=== PATIENT | male | born 1990 | race Caucasian/White ===

== ENCOUNTER 2020-05-20 23:31 | Emergency (ER) | payer SELFPAY ==
--- NOTE | ~2020-05-20 | CT_ITS ---
EXAMINATION: CT abdomen pelvis w con DATE: 05/21/2020 02:09 INDICATION: Elbow pain. Leukocytosis. TECHNIQUE: Computed tomography (CT) of the abdomen and pelvis was performed with 100 mL Omnipaque-350 intravenous contrast. Automated exposure control and iterative reconstruction technique were employe d. The dose-length product was 372.43 mGy-cm. COMPARISON: 06/24/2018 FINDINGS: Lung bases are clear. Heart size is normal. No pericardial or pleural effusion. Status post splenecto my with suture line in the subdiaphragmatic left upper quadrant. Mild intrahepatic biliary ductal dil ation versus periportal edema. Gallbladder, pancreas and bilateral adrenal glands are normal. Bilater al nonobstructing nephrolithiasis with at least 2 stones in the right kidney and 3 in the left kidney measuring up to 2-3 mm in maximal diameters. 6 mm right renal cyst. Appendix is not visualized and t here are postoperative changes along the tip of the cecum consistent with prior appendectomy. Bowels are otherwise normal. Bladder is normal. No free intraperitoneal gas or fluid. Several mildly promine nt but still normal-sized retroperitoneal lymph nodes which are likely reactive. No pathologically en larged abdominal or pelvic lymphadenopathy. IMPRESSION: 1. Bilateral nonobstructing nephrolithiasis. 2. Mild intrahepatic biliary ductal dilation versus nonspecific periportal edema. Common bile duct an d gallbladder are normal. Correlate with liver function tests. Reviewed, dictated and finalized at location A. IMPRESSION: 1. Bilateral nonobstructing nephrolithiasis. 2. Mild intrahepatic biliary ductal dilation versus nonspecific periportal william a. Common bile duct and gallbladder are normal. Correlate with liver function t ests.
[2020-05-20 23:38] VITALS: BP 120/73; PULSE 71; RESP 16; TEMP 36.2; O2SAT 100
[2020-05-20 23:54] LABS: Basophils Absolute Auto 0.1 K/mm3 (0.0-0.1); Basophils Percent Auto 0.7 % (0.2-1.2); Eosinophils Absolute Auto 0.3 K/mm3 (0-0.3); Eosinophils Percent Auto 1.8 % (0-4.4); Hematocrit 41.6 % (42.0-52.0); Hemoglobin 14.4 g/dL (14.0-18.0); Immature Granulocyte Absolute 0.05 K/mm3 (0.00-0.031); Immature Granulocyte Percent A 0.3 % (0-0.5); Lymphocytes Absolute Auto 4.18 K/mm3 (0.9-3.2); Lymphocytes Percent Auto 26.6 % (18.3-44.2); Mean Corpuscular HGB Conc 34.6 g/dl (32-36); Mean Corpuscular Hemoglobin 31.6 pg (26-34); Mean Corpuscular Volume 91.2 fl (80-100); Mean Platelet Volume 9.5 fl (7.4-10.4); Monocytes Absolute Auto 1.4 K/mm3 (0.1-0.6); Neutrophils Absolute Auto 9.7 K/mm3 (1.3-6.7); Neutrophils Percent Auto 61.6 % (45.5-73.1); Platelet Count Result 217 k/mm3 (150-375); Red Blood Count 4.56 M/mm3 (4.6-6.20); Red Cell Distribution Width 13.2 % (11.5-14.5); White Blood Count 15.7 K/mm3 (4.5-10.0)
[2020-05-21] MEDS: LACTATED RINGERS 1,000 ML 999 ML IV CONT ×2 (00:06→01:24)
[2020-05-21] MEDS: PANTOPRAZOLE SODIUM IV 40 MG VIAL IV PUSH (00:06)
[2020-05-21] MEDS: ONDANSETRON INJ 4 MG/2 ML VIAL IV PUSH ×2 (00:07→01:24)
--- NOTE | 2020-05-21 00:24 | ED.ABDPAIN ---
HPI - Abdominal Pain General Chief Complaint: Abdominal Pain Stated Complaint: stomach issues Time Seen by Provider: 05/20/20 23:38 Source: patient Mode of arrival: ambulatory Limitations: no limitations History of Present Illness HPI narrative: This is a 29 year old male who presents for evaluation of nausea, vomiting, diarrhea and abdominal pain. He states he ate around 6 pm, and shortly after he developed nausea, vomiting and diarrhea. He ate a chicken potpie and denies other sick contacts. He has associated intermittent epigastric squeezing pain. He denies fever, chills, cough, sore throat, runny nose. MD elicited complaint: abdominal pain Quality: other (squeezing) Radiation: epigastric Associated symptoms: nausea, vomiting and diarrhea Related Data Allergies Allergy/AdvReac Type Severity Reaction Status Date / Time amoxicillin Allergy Mild Unknown Verified 05/20/20 23:50 Penicillins Allergy Mild Unknown Verified 05/20/20 23:50 red dye Allergy Mild Unknown Verified 05/20/20 23:50 Review of Systems Review of Systems: All systems reviewed & are unremarkable except as noted in HPI and below ENT: Denies sore throat Cardiovascular: Cardiovascular: Denies chest pain Respiratory: Respiratory: Denies cough and Denies dyspnea Gastrointestinal: Gastrointestinal: Reports abdominal pain, Reports diarrhea, Reports nausea and Reports vomiting Neurologic: Denies headache(s) PMFSH Past Medical History Medical History (Updated 05/21/20 @ 03:27 by Antonia Cutler MD) History of ITP Surgical History Surgical History (Updated 05/21/20 @ 00:25 by Antonia Cutler MD) H/O splenectomy History of appendectomy Social History Social History (Updated 05/21/20 @ 00:26 by Antonia Cutler MD) Smoking status: Current every day smoker Alcohol intake: current Substance use type: crack/cocaine Other substance usage details: cocaine over the weekend Exam Const: General: no acute distress and alert Orientation/consciousness: patient oriented x3 Eyes: EOM: EOMs intact bilaterally Resp: Effort & Inspection: normal respiratory effort and no retractions Auscultation: clear to auscultation bilaterally Cardio: Rate: regular rate Rhythm: regular rhythm Heart sounds: no murmurs GI: GI Palp: Yes Soft to palpation, Yes Tenderness to palpation present (GI) (Diffuse, mild) and No Guarding due to palpation present (GI) Auscultation: normal bowel sounds Skin: General skin exam: normal color Rashes: no rashes Neuro: General: patient oriented x3, moves all extremities and CN's II-XI intact bilaterally Psych: Mental Status: mental status grossly normal Affect: normal affect Course Reevaluation(s) Reevaluation #1: Patient states that his pain has resolved. He continues to have nausea. Date: 05/21/20 Time: 01:15 Reevaluation #2: Patient states he feels much better. He is able to drink water and eat crackers without nausea or vomiting. I Discussed CT and dishcarge plan. He was also told return precautions. Date: 05/21/20 Time: 03:21 Vital Signs Vital signs: Vital Signs Temperature 97.2 F L 05/20/20 23:38 Pulse Rate 71 05/20/20 23:38 Respiratory Rate 16 05/20/20 23:38 Blood Pressure 120/73 05/20/20 23:38 Pulse Oximetry 100 05/20/20 23:38 Temperature 97.2 F L 05/20/20 23:38 Pulse Rate 92 05/21/20 03:15 Respiratory Rate 18 05/21/20 03:15 Blood Pressure 112/72 05/21/20 03:15 Pulse Oximetry 96 05/21/20 03:15 MDM - Abdominal Pain Lab Data Attestation: I reviewed the patient's lab results. Result diagrams: 05/20/20 23:49 05/20/20 23:49 Labs: Lab Results 05/20/20 05/20/20 05/21/20 Range/Units 23:49 23:49 00:53 WBC 15.7 H (4.5-10.0) K/mm3 RBC 4.56 L (4.6-6.20) M/mm3 Hgb 14.4 (14.0-18.0) g/dL Hct 41.6 L (42.0-52.0) % MCV 91.2 (80-100) fl MCH 31.6 (26-34) pg MCHC 34.6 (32-36) g/dl RDW 13.2
[2020-05-21 00:27] LABS: Alanine Aminotransferase 14 U/L (4-50); Albumin Level 5.1 g/dL (3.5-5.1); Alkaline Phosphatase 56 U/L (38-126); Anion Gap 10 mmol/L (8-16); Aspartate Amino Transferase 21 U/L (17-59); Bilirubin,Total 0.5 mg/dL (0.2-1.3); Blood Urea Nitrogen 16 mg/dL (9-20); Carbon Dioxide 25 mmol/L (22-30); Chloride 105 mmol/L (98-107); Estimated CRCL calculation 99 ml/min; Estimated Glomerular Filt Rate > 60; Glucose 95 mg/dL (75-110); Lipase 70 U/L (23-300); Potassium 3.8 mmol/L (3.4-5.0); Sodium 140 mmol/L (137-145)
[2020-05-21 01:02] LABS: Add Urine Microscopic? NO; Appearance Urine Clear (Clear); Bilirubin Urine Negative (Negative); Blood Urine Negative (Negative); Color Urine Yellow (Yellow); Glucose Urine UA Negative (Negative); Ketones Urine Negative (Negative); Leukocyte Esterase Ur Negative LEU/UL (Negative); Nitrate Urine Negative (Negative); Protein Urine Negative (Negative); Specific Grav Ur 1.027 (1.001-1.035); Urobilinogen Urine Negative mg/dL (<2.0)
[2020-05-21 03:15] VITALS: BP 112/72; PULSE 92; RESP 18; O2SAT 96
== END 2020-05-21 03:44 | disposition home or self-care (01) ==
PROVIDERS: Emergency Provider General Practice
DX: K52.9 Noninfective gastroenteritis and colitis, unspecified (principal); Z90.81 Acquired absence of spleen; F17.200 Nicotine dependence, unspecified, uncomplicated; N20.0 Calculus of kidney; R93.2 Abnormal findings on diagnostic imaging of liver and biliary tract
CPT/HCPCS: 36415; 74177; 80053; 81003; 83690; 85025; 96361; 96374; 96375; 96376; 99284; C9113; J0131; J2405; J7120; Q9967

== ENCOUNTER 2021-11-15 12:14 | Emergency (ER) | payer SELFPAY ==
--- NOTE | ~2021-11-15 | XR_ITS ---
EXAMINATION: XR chest 2V 11/15/2021 13:21 INDICATION: Cough and fever PROCEDURE: 2 view chest COMPARISON: 12/25/2006 FINDINGS: The lungs are clear. The cardiomediastinal silhouette is within normal limits. There are no pleural effusions. There is no pneumothorax suspected. IMPRESSION: 1: NO ACUTE CARDIOPULMONARY DISEASE. Reviewed, dictated and finalized at location A.
--- NOTE | ~2021-11-15 | CT_ITS ---
EXAMINATION: CT abdomen pelvis w con DATE: 11/15/2021 14:23 INDICATION: Nausea, vomiting. Leukocytosis. TECHNIQUE: Computed tomography (CT) of the abdomen and pelvis was performed with 100 CC Omnipaque 350 intravenous contrast. Automated exposure control and iterative reconstruction technique were employe d. Exam dose: 366.29 mGy-cm total exam DLP. COMPARISON: 05/21/2020 CT abdomen pelvis FINDINGS: The lung bases are clear. Normal heart size. No pericardial or pleural effusion. Liver, gallbladder, bile, pancreas, pancreatic duct, and adrenal glands are unremarkable. Spleen is s urgically absent. There are 3 small nonobstructing left renal calculi, largest 4 mm. No other urinary tract calculi. No hydroureteronephrosis is noted on either side. Approximately 6 mm hypoattenuating lesion of the lower pole of the right kidney, too small to definit ively characterize, most likely a cyst, stable since 05/21/2020. Normal caliber of the abdominal aorta. There are shotty nonenlarged periaortic and aortocaval lymph n odes. The urinary bladder and prostate gland are unremarkable. There is scattered small bowel and large bowel air-fluid levels without abnormal dilatation or obstru ction or bowel wall thickening. Probable postoperative change from appendectomy. Benign appearing central cylindrical lucency of the L3 vertebral body, with thin sclerotic margin. Sm all probable bone island of right femoral head. No suspicious osteolytic or osteoblastic lesions are noted. IMPRESSION: Scattered small and large bowel air-fluid levels without evidence of obstruction, sugges ting enterocolitis No intraperitoneal free air Nonobstructive left mild nephrolithiasis Status post splenectomy Small right renal cyst Reviewed, dictated and finalized at Location A. Reviewed, dictated and finalized at location B. IMPRESSION: Scattered small and large bowel air-fluid levels without evidence of obstruction, suggesting enterocolitis No intraperitoneal free air Nonobstructive left mild nephrolithiasis Status post splenectomy Small right renal cyst
[2021-11-15 12:18] VITALS: BP 134/68; PULSE 101; RESP 18; TEMP 37.1; O2SAT 99
[2021-11-15] MEDS: ONDANSETRON INJ 4 MG/2 ML VIAL IV PUSH (13:16)
--- NOTE | 2021-11-15 13:17 | ED.FEVER ---
HPI - Fever General Chief Complaint: Fever Stated Complaint: fever, vomiting, diarrhea Time Seen by Provider: 11/15/21 12:42 History of Present Illness HPI Narrative: Patient is a 31-year-old male here for evaluation of fever for the past 4 days. Patient states that 4 days ago he noted chills, took his temperature and noted it was 101. He took an ibuprofen with relief of his fever. He presented to an urgent care facility the next day once he developed a cough, his COVID test was negative at that time, and he was treated for suspected bronchitis with prednisone. States that his cough has eased up a bit, but he still notes intermittent fevers, yesterday it was up to 102. He has taken ibuprofen with relief of the fever. States today he became nauseated and began to vomit, and has had 3 episodes of non-bloody diarrhea. Denies sick contacts at home. Denies abdominal pain, leg swelling. Denies urinary complaints, he does have history of kidney stones but denies any back pain. Related Data Allergies Allergy/AdvReac Type Severity Reaction Status Date / Time amoxicillin Allergy Mild Unknown Verified 11/15/21 12:22 Penicillins Allergy Mild Unknown Verified 11/15/21 12:22 red dye Allergy Mild Unknown Verified 11/15/21 12:22 Review of Systems Review of Systems: Gen.: Reports fevers and chills Eyes: Denies eye pain or visual change ENT: Denies congestion Respiratory: Reports cough denies shortness of breath or cough CV: Denies chest pain or palpitations GI: Reports nausea and diarrhea and vomiting : denies burning, urgency, frequency or hematuria Musculoskeletal: Denies back pain or muscle pain Neuro: Denies numbness, tingling, weakness or focal weakness Skin: Denies rash Except as documented, all other systems reviewed and negative [facility] Past Medical History Medical History History of ITP Surgical History Surgical History H/O splenectomy History of appendectomy Social History Social History (Updated 05/21/20 @ 00:26 by Antonia Cutler MD) Smoking status: Current every day smoker Alcohol intake: current Substance use type: crack/cocaine Other substance usage details: cocaine over the weekend Exam Narrative: APPEARANCE: Well appearing, no pain in distress, well-nourished. Head: Normocephalic and atraumatic. EYES: PERRLA/EOMI, conjunctivae clear NOSE: No nasal drainage EARS: External ear normal in appearance THROAT: Oropharynx is clear. Mucous membranes are moist. NECK: Supple. No adenopathy, no masses. RESPIRATORY: Airway patent, respirations nonlabored. Clear to auscultation bilaterally, no rales, rhonchi, wheezing. CARDIOVASCULAR: Regular rate and rhythm without murmurs, rubs, or gallops. ABDOMINAL: Normoactive bowel sounds. Soft, nontender, nondistended. No rebound tenderness or guarding. MUSCULOSKELETAL: Extremities are warm and well-perfused. Moves all extremities well. No edema. NEURO: Normal speech. No focal neurologic deficits. SKIN: Skin is warm and dry. No rashes. PSYCHIATRIC: Normal affect/mood. Course Vital Signs Vital signs: Vital Signs Temperature 98.7 F 11/15/21 12:18 Pulse Rate 101 H 11/15/21 12:18 Respiratory Rate 18 11/15/21 12:18 Blood Pressure 134/68 11/15/21 12:18 Pulse Oximetry 99 11/15/21 12:18 Oxygen Delivery Room Air 11/15/21 12:18 Temperature 98.9 F 11/15/21 16:11 Pulse Rate 69 11/15/21 16:11 Respiratory Rate 18 11/15/21 16:11 Blood Pressure 115/69 11/15/21 16:11 Pulse Oximetry 98 11/15/21 16:11 Oxygen Delivery Room Air 11/15/21 12:18 MDM - Fever MDM Narrative Medical decision making narrative: 31-year-old male here for evaluation fevers, chills for the past 3 days in addition to nausea vomiting and diarrhea today. Patient is nontoxic-appearing and afebrile at time of evaluation, remained afebrile throu
[2021-11-15 13:27] LABS: Basophils Absolute Auto 0.1 K/mm3 (0.0-0.1); Basophils Percent Auto 0.5 % (0.2-1.2); Eosinophils Percent Auto 0.1 % (0-4.4); Hematocrit 38.6 % (42.0-52.0); Hemoglobin 12.9 g/dL (14.0-18.0); Immature Granulocyte Absolute 0.04 K/mm3 (0.00-0.031); Immature Granulocyte Percent A 0.3 % (0-0.5); Lymphocytes Absolute Auto 4.11 K/mm3 (0.9-3.2); Lymphocytes Percent Auto 26.3 % (18.3-44.2); Mean Corpuscular HGB Conc 33.4 g/dl (32-36); Mean Corpuscular Hemoglobin 30.5 pg (26-34); Mean Corpuscular Volume 91.3 fl (80-100); Mean Platelet Volume 9.6 fl (7.4-10.4); Monocytes Absolute Auto 2.2 K/mm3 (0.1-0.6); Monocytes Percent Auto 13.9 % (2.6-8.5); Neutrophils Absolute Auto 9.2 K/mm3 (1.3-6.7); Neutrophils Percent Auto 58.9 % (45.5-73.1); Platelet Count Result 160 k/mm3 (150-375); Red Blood Count 4.23 M/mm3 (4.6-6.20); Red Cell Distribution Width 13.4 % (11.5-14.5); White Blood Count 15.7 K/mm3 (4.5-10.0)
[2021-11-15] MEDS: SODIUM CHLORIDE 0.9% IV 1,000 ML 999 ML IV CONT (13:27)
[2021-11-15 13:38] LABS: Alanine Aminotransferase 15 U/L (6-50); Albumin Level 4.2 g/dL (3.5-5.1); Alkaline Phosphatase 63 U/L (38-126); Anion Gap 10 mmol/L (8-16); Aspartate Amino Transferase 23 U/L (17-59); Bilirubin,Total 0.5 mg/dL (0.2-1.3); Blood Urea Nitrogen 9 mg/dL (9-20); CRP 3.7 mg/dL (<1.0); Carbon Dioxide 26 mmol/L (22-30); Chloride 100 mmol/L (98-107); Estimated CRCL calculation 97 ml/min; Estimated Glomerular Filt Rate > 60; Glucose 99 mg/dL (65-110); Potassium 3.9 mmol/L (3.4-5.0); Sodium 136 mmol/L (137-145)
[2021-11-15 13:56] LABS: Appearance Urine Clear (Clear); Bilirubin Urine Negative (Negative); Color Urine Yellow (Yellow); Glucose Urine UA Negative (Negative); Ketones Urine Negative (Negative); Leukocyte Esterase Ur Negative LEU/UL (Negative); Nitrate Urine Negative (Negative); Protein Urine Negative (Negative); Specific Grav Ur 1.015 (1.001-1.035); Urobilinogen Urine 0.2 mg/dL (<2.0)
[2021-11-15 14:01] LABS: Bacteria Urine Trace /hpf; RBC Urine 0-2 /hpf (0-2); WBC Urine 0-3 /hpf
[2021-11-15 14:02] LABS: SARS-CoV-2 RNA PCR Negative
[2021-11-15 14:06] LABS: Add Urine Microscopic? YES; Blood Urine Trace-Intact (Negative)
[2021-11-15 14:11] LABS: Erythrocyte Sedimentation Rate 22 mm/hr (0-20)
[2021-11-15 16:11] VITALS: BP 115/69; PULSE 69; RESP 18; TEMP 37.2; O2SAT 98
== END 2021-11-15 16:18 | disposition home or self-care (01) ==
PROVIDERS: Physician Assistant; Emergency Provider Emergency Medicine
DX: K52.9 Noninfective gastroenteritis and colitis, unspecified (principal); Z20.822 Contact with and (suspected) exposure to COVID-19; Z90.81 Acquired absence of spleen; F17.200 Nicotine dependence, unspecified, uncomplicated; N20.0 Calculus of kidney; N28.1 Cyst of kidney, acquired
CPT/HCPCS: 36415; 71046; 74177; 80053; 81001; 85025; 85652; 86140; 96361; 96374; 99284; C9803; J2405; J7030; Q9967; U0003; U0005

== ENCOUNTER 2022-10-15 04:39 | Emergency (ER) | payer OTHER, SELFPAY ==
--- NOTE | ~2022-10-15 | XR_ITS ---
EXAMINATION: XR chest 2V DATE: 10/15/2022 05:11 INDICATION: Chest pain. Shortness of breath. TECHNIQUE: Frontal and lateral views of the chest were obtained. COMPARISON: Chest 2 views 11/15/2021, CT abdomen and pelvis 11/15/2021 FINDINGS: There is mild scarring at the lung apices. No pleural effusion or pneumothorax. The heart s ize is normal. IMPRESSION: 1. Stable mild scarring at the lung apices. Reviewed, dictated and finalized at location A.
--- NOTE | 2022-10-15 04:40 | ECG_ITS ---
Measurements Intervals [place] Rate: 93 P: 74 DE: 162 QRS: 81 QRSD: 81 T: 54 QT: 327 QTc: 408 Interpretive Statements SINUS RHYTHM WITH OCCASIONAL VENTRICULAR PREMATURE COMPLEXES NO PREVIOUS ECG AVAILABLE FOR COMPARISON Electronically Signed On 10-15-2022 11:49:36 CDT by Anibal Gonzalez M.D.
[2022-10-15 04:52] VITALS: BP 127/96; PULSE 92; RESP 13; TEMP 36.6; O2SAT 100
[2022-10-15 04:53] LABS: Basophils Absolute Auto 0.1 K/mm3 (0.0-0.1); Basophils Percent Auto 0.6 % (0.2-1.2); Eosinophils Absolute Auto 0.1 K/mm3 (0-0.3); Eosinophils Percent Auto 0.6 % (0-4.4); Hematocrit 42.2 % (42.0-52.0); Hemoglobin 14.2 g/dL (14.0-18.0); Immature Granulocyte Absolute 0.03 K/mm3 (0.00-0.031); Immature Granulocyte Percent A 0.3 % (0-0.5); Lymphocytes Absolute Auto 3.33 K/mm3 (0.9-3.2); Lymphocytes Percent Auto 30.6 % (18.3-44.2); Mean Corpuscular HGB Conc 33.6 g/dl (32-36); Mean Corpuscular Hemoglobin 31.2 pg (26-34); Mean Corpuscular Volume 92.7 fl (80-100); Mean Platelet Volume 8.9 fl (7.4-10.4); Monocytes Absolute Auto 0.6 K/mm3 (0.1-0.6); Monocytes Percent Auto 5.1 % (2.6-8.5); Neutrophils Absolute Auto 6.8 K/mm3 (1.3-6.7); Neutrophils Percent Auto 62.8 % (45.5-73.1); Platelet Count Result 346 k/mm3 (150-375); Red Blood Count 4.55 M/mm3 (4.6-6.20); Red Cell Distribution Width 13.4 % (11.5-14.5); White Blood Count 10.9 K/mm3 (4.5-10.0)
[2022-10-15 04:56] VITALS: PULSE 85
[2022-10-15 04:57] VITALS: O2SAT 99
[2022-10-15 05:04] LABS: Partial Thromboplastin Time 27.4 SECONDS (22.3-36.8); Prothrombin Time 13.7 Seconds (11.1-14.7)
[2022-10-15 05:05] LABS: Alanine Aminotransferase 24 U/L (6-50); Albumin Level 5.1 g/dL (3.5-5.1); Alkaline Phosphatase 62 U/L (38-126); Anion Gap 7 mmol/L (8-16); Aspartate Amino Transferase 33 U/L (17-59); Bilirubin,Total 0.4 mg/dL (0.2-1.3); Blood Urea Nitrogen 11 mg/dL (9-20); Calcium 9.4 mg/dL (8.4-10.2); Carbon Dioxide 26 mmol/L (22-30); Chloride 106 mmol/L (98-107); Estimated CRCL calculation 106 ml/min; Estimated Glomerular Filt Rate > 60; Glucose 93 mg/dL (65-110); Lipase 84 U/L (23-300); Potassium 3.9 mmol/L (3.4-5.0); Sodium 139 mmol/L (137-145)
[2022-10-15 05:16] LABS: Troponin I < 0.012 ng/mL (0.000-0.034)
--- NOTE | 2022-10-15 05:24 | ED.CHESTPAIN ---
HPI - Chest Pain General Chief Complaint: Chest Pain Stated Complaint: chest pain Time Seen by Provider: 10/15/22 05:06 History of Present Illness HPI narrative: This is a 32-year-old male, with past history of ITP status post colectomy, who presents to the emergency department complaining of anxiety and chest pain for the past 5 days. The patient states he has been under significant stress with recent loss of a close friend diagnosis of cancer in all lobes 1. 5 days ago, he also used cocaine, felt lightheaded, nearly lost consciousness, felt nauseous and short of breath. He has also had left-sided chest pain, described as a rock in my chest for the past 5 days. This was aggravated once with pull-ups, though resolved during the patient's workout. Related Data Allergies Allergy/AdvReac Type Severity Reaction Status Date / Time amoxicillin Allergy Mild Unknown Verified 11/15/21 12:22 Penicillins Allergy Mild Unknown Verified 11/15/21 12:22 red dye Allergy Mild Unknown Verified 11/15/21 12:22 Review of Systems Review of Systems: CONSTITUTIONAL: Denies fever, chills, or sweats. CARDIOVASCULAR: Chest pain denies palpitations, or edema. RESPIRATORY: Denies cough or dyspnea. GASTROINTESTINAL: Denies abdominal pain, nausea, vomiting, or diarrhea. GENITOURINARY: Denies dysuria or hematuria. SKIN: Denies rash or itching. MUSCULOSKELETAL: Denies back pain, joint pain, or myalgia. NEUROLOGIC: Denies headache, numbness, dizziness, or weakness. PSYCHIATRIC: Anxiety denies depression. Denies suicidal or homicidal ideations PMFSH Past Medical History Medical History History of ITP Surgical History Surgical History H/O splenectomy History of appendectomy Social History Social History Smoking status: Current every day smoker Alcohol intake: current Substance use type: crack/cocaine Other substance usage details: cocaine over the weekend Exam Narrative: GENERAL: Well-developed, well-nourished, and in no acute distress. HEAD: Normocephalic, atraumatic. EYES: PERRLA and EOMI. CHEST: Clear to auscultation. No respiratory distress. No wheezes rales or rhonchi HEART: Regular rate and rhythm. No murmur heard. Normal peripheral pulses. ABDOMEN: Soft, nontender, nondistended, normal active bowel sounds. EXTREMITIES: Normal range of motion. No edema. SKIN: Warm, dry, no rash. NEURO: Alert and oriented x3. Moving all 4 limbs purposefully. PSYCH: Appears slightly anxious normal mood Course Course Emergency Course: 05:25 - CBC demonstrates mild white blood cell count elevation of 10.9 but is otherwise unremarkable. Coags within normal limits. Chemistries unremarkable. Chest x-ray by my interpretation unremarkable. Troponin negative. Heart score 0. My suspicion for ACS is low at this time. Will obtain a TSH, give hydroxyzine and plan for discharge. 06:09 - TSH within normal limits. On reevaluation, the patient states his anxiety is improved, though returning. Will discharge with primary care follow-up and hydroxyzine. Discussed return and emergency precautions including signs/symptoms of ACS and respiratory distress. The patient voiced understanding and is comfortable with the plan. All questions answered to satisfaction. Vital Signs Vital signs: Vital Signs Temperature 98 F 10/15/22 04:52 Pulse Rate 92 10/15/22 04:52 Respiratory Rate 13 10/15/22 04:52 Blood Pressure 127/96 H 10/15/22 04:52 Pulse Oximetry 100 10/15/22 04:52 Oxygen Delivery Room Air 10/15/22 04:52 Temperature 98 F 10/15/22 04:52 Pulse Rate 88 10/15/22 05:28 Respiratory Rate 15 10/15/22 05:28 Blood Pressure 123/80 10/15/22 05:28 Pulse Oximetry 95 10/15/22 05:28 Oxygen Delivery Room Air 10/15/22 04:57 MDM - Chest Pain MDM [facility]
--- NOTE | 2022-10-15 05:26 | PC.NURSE ---
Per EDP Dr. Rowley 3 and 6 hour troponin not needed.
[2022-10-15 05:28] VITALS: BP 123/80; PULSE 88; RESP 15; O2SAT 95
[2022-10-15] MEDS: hydrOXYzine HCL 25 MG TABLET PO ×2 (05:31→06:46)
[2022-10-15 06:49] VITALS: BP 128/63; PULSE 85; RESP 20; TEMP 36.6; O2SAT 98
== END 2022-10-15 06:50 | disposition home or self-care (01) ==
PROVIDERS: Emergency Provider Preventive Medicine Aerospace Medicine
DX: R07.89 Other chest pain (principal); F41.9 Anxiety disorder, unspecified; F14.10 Cocaine abuse, uncomplicated; Z90.49 Acquired absence of other specified parts of digestive tract; Z90.81 Acquired absence of spleen; I49.3 Ventricular premature depolarization
CPT/HCPCS: 36415; 71046; 80053; 83690; 84443; 84484; 85025; 85610; 85730; 93005; 99284; A9270

== ENCOUNTER 2022-10-30 15:13 | Outpatient (CLI) | payer OTHER, MEDICAID, SELFPAY ==
--- NOTE | ~2022-10-30 | US_ITS ---
EXAMINATION: US soft tissue head and neck DATE: 10/30/2022 16:05 INDICATION: Lump inferior to the chin. Swollen lymph node. TECHNIQUE: Multiple grayscale and Doppler ultrasound images of the neck were obtained. COMPARISON: None FINDINGS: There is a normal-sized submandibular lymph node in the patient's area of concern. IMPRESSION: 1. No abnormal neck mass or lymphadenopathy. Reviewed, dictated and finalized at location E.
== END 2022-10-30 15:14 | disposition home or self-care (01) ==
PROVIDERS: PCP Emergency Medicine; Visit Provider Emergency Medicine
DX: R59.0 Localized enlarged lymph nodes (principal)
CPT/HCPCS: 76536

== ENCOUNTER 2022-11-10 08:17 | Emergency (ER) | payer OTHER, MEDICAID, SELFPAY ==
[2022-11-10 08:30] VITALS: BP 114/77; PULSE 99; RESP 16; TEMP 37.2; O2SAT 100
--- NOTE | 2022-11-10 08:41 | ED.URI ---
HPI - URI/Sore Throat General Chief Complaint: Upper Respiratory Infection Stated Complaint: fever, sore throat,body aches, chills Time Seen by Provider: 11/10/22 08:35 Source: patient Mode of arrival: ambulatory Limitations: no limitations History of Present Illness HPI Narrative: Irwin is a 32-year-old male patient presenting to the clinic today with complaints of fever, sore throat, body aches, and chills x1 day. He reports his symptoms started yesterday. His girlfriend testing for COVID and strep at home and both test were negative. No known exposure to anyone with COVID, flu, or strep. MD elicited complaint: fever, sore throat and other (Body aches, chills) Related Data Allergies Allergy/AdvReac Type Severity Reaction Status Date / Time amoxicillin Allergy Mild Unknown Verified 11/10/22 08:41 Penicillins Allergy Mild Unknown Verified 11/10/22 08:41 red dye Allergy Mild Unknown Verified 11/10/22 08:41 Review of Systems Review of Systems: Pertinent positives per HPI. Patient denies any rash, headache, visual changes, dizziness, cough, shortness of breath, chest pain, palpitations, nausea, vomiting, diarrhea, constipation, abdominal pain, or any urinary issues. PMFSH Past Medical History Medical History History of ITP Surgical History Surgical History H/O splenectomy History of appendectomy Social History Social History Smoking status: Current every day smoker Alcohol intake: current Substance use type: crack/cocaine Other substance usage details: cocaine over the weekend Comments At the time of my signature, I reviewed and agree with the nursing past medical, surgical, social, and family history. There is no relevant family history pertinent to the patient complaint. Exam Narrative: General: Well-developed, well nourished, in no apparent distress Head: Normocephalic, atraumatic Eyes: Pupils equally round and reactive to light bilaterally, EOM intact, sclera and conjunctive clear, no discharge, lids normal Ears: TMs intact and clear, ear canals clear, no drainage, grossly hearing normal. Nose: Nares patent, no discharge, no inflammation, no sinus tenderness. Mouth: Oral pharynx red with bilateral tonsillar enlargement with white exudate, without lesions or masses, good dentition, MMM. Neck: Supple, trachea midline, enlargement of anterior cervical nodes, no thyroid masses or goiter palpable. Cardio: Regular rate and rhythm, s1 and s2 normal, no murmur appreciated. Resp: Clear to auscultation bilaterally, no rhonchi, rales, wheezing or rubs Course Course Emergency Course: Portions of this record may have been created with voice recognition software. Level of Care: Express Care Visit Vital Signs Vital signs: Vital Signs Temperature 37.2 C 11/10/22 08:30 Pulse Rate 99 11/10/22 08:30 Respiratory Rate 16 11/10/22 08:30 Blood Pressure 114/77 11/10/22 08:30 Pulse Oximetry 100 11/10/22 08:30 Oxygen Delivery Room Air 11/10/22 08:30 Temperature 37.2 C 11/10/22 08:30 Pulse Rate 99 11/10/22 08:30 Respiratory Rate 16 11/10/22 08:30 Blood Pressure 114/77 11/10/22 08:30 Pulse Oximetry 100 11/10/22 08:30 Oxygen Delivery Room Air 11/10/22 08:30 Vital signs reviewed MDM - URI/Sore Throat MDM Narrative Medical decision making narrative: At the time of visit patient is resting on the exam table. Influenza and strep test were completed. Influenza testing was negative. Strep test was positive. Will send prescription for azithromycin. Supportive measures were discussed with the patient he voiced understanding. Patient reports that he took a Z-Venkat before and did not have any issues with it. Differential Diagnosis Differential diagnosis: Likely upper respiratory infection, otitis m
== END 2022-11-10 08:49 | disposition home or self-care (01) ==
PROVIDERS: Emergency Provider Nurse Practitioner Family; PCP Emergency Medicine
DX: J02.0 Streptococcal pharyngitis (principal); D69.3 Immune thrombocytopenic purpura; F17.200 Nicotine dependence, unspecified, uncomplicated; F14.90 Cocaine use, unspecified, uncomplicated
CPT/HCPCS: 87804; 87880; 99213; G0463

== ENCOUNTER 2022-11-14 14:48 | Outpatient (CLI) | payer OTHER, MEDICAID, SELFPAY ==
[2022-11-14 15:04] LABS: Basophils Absolute Auto 0.1 K/mm3 (0.0-0.1); Basophils Percent Auto 1.4 % (0.2-1.2); Eosinophils Absolute Auto 0.6 K/mm3 (0-0.3); Eosinophils Percent Auto 6.4 % (0-4.4); Hematocrit 38.2 % (42.0-52.0); Hemoglobin 12.8 g/dL (14.0-18.0); Immature Granulocyte Absolute 0.03 K/mm3 (0.00-0.031); Immature Granulocyte Percent A 0.3 % (0-0.5); Lymphocytes Absolute Auto 3.65 K/mm3 (0.9-3.2); Lymphocytes Percent Auto 41.6 % (18.3-44.2); Mean Corpuscular HGB Conc 33.5 g/dl (32-36); Mean Corpuscular Hemoglobin 31.3 pg (26-34); Mean Corpuscular Volume 93.4 fl (80-100); Mean Platelet Volume 8.4 fl (7.4-10.4); Monocytes Absolute Auto 0.8 K/mm3 (0.1-0.6); Monocytes Percent Auto 8.7 % (2.6-8.5); Neutrophils Absolute Auto 3.7 K/mm3 (1.3-6.7); Neutrophils Percent Auto 41.6 % (45.5-73.1); Platelet Count Result 362 k/mm3 (150-375); Red Blood Count 4.09 M/mm3 (4.6-6.20); Red Cell Distribution Width 12.9 % (11.5-14.5); White Blood Count 8.8 K/mm3 (4.5-10.0)
[2022-11-14 17:08] LABS: Alanine Aminotransferase 17 U/L (6-50); Albumin Level 4.6 g/dL (3.5-5.1); Alkaline Phosphatase 52 U/L (38-126); Anion Gap 7 mmol/L (8-16); Aspartate Amino Transferase 22 U/L (17-59); Bilirubin,Total 0.5 mg/dL (0.2-1.3); Blood Urea Nitrogen 14 mg/dL (9-20); CRP 1.6 mg/dL (<1.0); Carbon Dioxide 30 mmol/L (22-30); Chloride 103 mmol/L (98-107); Estimated Glomerular Filt Rate > 60; Glucose 84 mg/dL (65-110); Lactate Dehydrogenase 152 U/L (120-246); Potassium 4.1 mmol/L (3.4-5.0); Sodium 140 mmol/L (137-145)
== END 2022-11-14 14:49 | disposition home or self-care (01) ==
LOC: ANHLAB 14:51
PROVIDERS: PCP Emergency Medicine; Visit Provider Internal Medicine Hematology & Oncology
DX: R59.1 Generalized enlarged lymph nodes (principal)
CPT/HCPCS: 36415; 80053; 83615; 85025; 86140; 88184

== ENCOUNTER 2022-12-29 12:05 | Emergency (ER) | payer OTHER, MEDICAID, SELFPAY ==
--- NOTE | 2022-12-29 12:09 | ED.URI ---
HPI - URI/Sore Throat General Chief Complaint: Upper Respiratory Infection Stated Complaint: Sinus/Ears Irritation Time Seen by Provider: 12/29/22 12:09 Source: patient Mode of arrival: ambulatory Limitations: no limitations History of Present Illness HPI Narrative: Patient is a 32-year-old male who presents with sinus congestion and left ear pain that started this morning. Patient took his daily Claritin and Flonase this morning. Denies any sore throat, cough, fever, chills, nausea, vomiting, diarrhea. Related Data Home Medications Medication Instructions Recorded Confirmed No Home Medications 12/29/22 12/29/22 Allergies Allergy/AdvReac Type Severity Reaction Status Date / Time amoxicillin Allergy Mild Unknown Verified 12/29/22 12:14 Penicillins Allergy Mild Unknown Verified 12/29/22 12:14 red dye Allergy Mild Unknown Verified 12/29/22 12:14 Review of Systems Review of Systems: All systems reviewed & are unremarkable except as noted in HPI and below Constitutional: Constitutional: Denies body ache(s), Denies chills, Denies fatigue, Denies fever(s), Denies headache(s), Denies malaise and Denies weakness Eyes: Eyes: Denies blurry vision, Denies itchy eyes and Denies loss of vision ENT: Reports otalgia, Denies headache(s), Reports nasal congestion, Denies sinus pain and Denies sore throat Cardiovascular: Cardiovascular: Denies chest pain, Denies irregular heart rhythm and Denies dyspnea Respiratory: Respiratory: Denies cough and Denies dyspnea Gastrointestinal: Gastrointestinal: Denies abdominal pain, Denies diarrhea, Denies nausea and Denies vomiting Musculoskeletal: Musculoskeletal: Denies back pain, Denies myalgias and Denies arthralgias Integumentary/Breasts: Skin/Breast: Denies pruritus and Denies rash Neurologic: Denies headache(s), Denies loss of vision and Denies weakness Psychiatric: Psychiatric: Reports no additional psychiatric complaints Endocrine: Endocrine: Denies fatigue Allergic/Immunologic: Allergic/Immunologic: Denies itchy eyes PMFSH Past Medical History Medical History History of ITP Surgical History Surgical History H/O splenectomy History of appendectomy Social History Social History Smoking status: Current every day smoker Alcohol intake: current Substance use type: crack/cocaine Other substance usage details: cocaine over the weekend Comments At time of signature, agree with nursing past medical, surgical, social and family history. There is no relevant family history pertinent to the presenting complaint. Exam Const: General: cooperative, healthy appearing, comfortable, no acute distress and well nourished Nutritional Appearance: well nourished Orientation/consciousness: patient oriented x3 Limitations: no limitations HENMT: Head: normal to inspection, normocephalic and atraumatic Ears: hearing grossly normal bilaterally, external ears normal, EAC's normal, no periauricular adenopathy and TM abnormal wth effusion serous on the left Face/Nose/Sinus: Normal external nose present, Abnormal mucous membranes and turbinates present erythematous bilateral and diffuse, normal facial exam, sinuses nontender and face symmetric Face and sinus: normal facial exam, sinuses nontender and face symmetric Mouth: Yes Normal oral and palatal mucosa present, Yes lip normal, Yes tongue normal, Yes Normal salivary glands and ducts present, Yes oropharynx normal and Yes moist mucous membranes Teeth and gingiva: dentition normal Throat: uvula midline, abnormal tonsil bilateral erythema, hypertrophy 2+ and pitting, posterior oropharynx abnormal erythema and postnasal drainage Eyes: General: appearance normal, both eyes and all related structures Alignment and Position: alignment normal and position normal Periorbital: kayleigh
[2022-12-29 12:24] VITALS: BP 122/62; PULSE 58; RESP 18; TEMP 36.8; O2SAT 100
== END 2022-12-29 12:38 | disposition home or self-care (01) ==
PROVIDERS: Emergency Provider Nurse Practitioner Family; PCP Emergency Medicine
DX: J06.9 Acute upper respiratory infection, unspecified (principal); F17.200 Nicotine dependence, unspecified, uncomplicated
CPT/HCPCS: 99211; G0463

== ENCOUNTER 2023-02-04 02:04 | Emergency (ER) | payer OTHER, MEDICAID, SELFPAY ==
[2023-02-04] VITALS (11 sets, daily range): BP systolic 105–126; BP diastolic 55–75; PULSE 47–90; RESP 10–28; TEMP 36.6; O2SAT 97–100
[2023-02-04] MEDS: FAMOTIDINE 20 MG/2 ML VIAL IV PUSH (02:29)
[2023-02-04] MEDS: methylPREDNISolone SOD SUCC 125 MG VIAL IV PUSH (02:29)
[2023-02-04] MEDS: diphenhydrAMINE HCl INJ 50 MG/ML VIAL IV PUSH (02:30)
--- NOTE | 2023-02-04 02:47 | ED.GENADULT ---
[facility] - General Adult General Chief complaint: Allergic Reaction Stated complaint: allergic reaction Time Seen by Provider: 02/04/23 02:25 History of Present Illness HPI narrative: patient presents to the emergency department with allergic reaction. Bilateral eyelid swelling left more so than the right. He felt like everything was stretching . Woke up with symptoms. Unknown reaction with no new foods or exposures. Denies shortness of breath but felt like his tongue and throat were getting larger. Patient has received medications and is feeling better. He is accompanied by his read Related Data Allergies Allergy/AdvReac Type Severity Reaction Status Date / Time amoxicillin Allergy Mild Unknown Verified 12/29/22 12:14 Penicillins Allergy Mild Unknown Verified 12/29/22 12:14 red dye Allergy Mild Unknown Verified 12/29/22 12:14 Review of Systems Review of Systems: negative except for as [facility] Past Medical History Medical History History of ITP Surgical History Surgical History H/O splenectomy History of appendectomy Social History Social History Smoking status: Current every day smoker Alcohol intake: current Substance use type: crack/cocaine Other substance usage details: cocaine over the weekend Exam Narrative: GENERAL: Well-appearing, well-nourished, and in no acute distress. HEAD: Normocephalic, atraumatic. EYES: PERRLA and EOMI. bilateral eyelid swelling ENT: Nares clear, no rhinorrhea or epistaxis. Mucous membranes moist. NECK: Supple. CHEST: Clear to auscultation. No respiratory distress. HEART: Regular rate and rhythm. ABDOMEN: Soft, nontender, nondistended. EXTREMITIES: Normal range of motion. No edema. SKIN: Warm, dry, no rash. NEURO: No focal deficits. Alert and oriented x3. PSYCH: Normal mood and affect. Course Course Emergency Course: patient feeling much better. Right eyelid swelling almost completely resolved. Patient requesting to go home. He is walking around the room Vital Signs Vital signs: Vital Signs Temperature 36.6 C 02/04/23 02:06 Pulse Rate 90 02/04/23 02:06 Respiratory Rate 22 H 02/04/23 02:06 Blood Pressure 126/55 L 02/04/23 02:06 Pulse Oximetry 100 02/04/23 02:06 Oxygen Delivery Room Air 02/04/23 02:06 Temperature 36.6 C 02/04/23 02:25 Pulse Rate 62 02/04/23 05:19 Respiratory Rate 10 L 02/04/23 05:19 Blood Pressure 109/75 02/04/23 05:01 Pulse Oximetry 98 02/04/23 05:19 Oxygen Delivery Room Air 02/04/23 02:06 Medical Decision Making Vital Signs Vital Signs: Vital Signs Temperature 36.6 C 02/04/23 02:06 Pulse Rate 90 02/04/23 02:06 Respiratory Rate 22 H 02/04/23 02:06 Blood Pressure 126/55 L 02/04/23 02:06 Pulse Oximetry 100 02/04/23 02:06 Oxygen Delivery Room Air 02/04/23 02:06 Temperature 36.6 C 02/04/23 02:25 Pulse Rate 62 02/04/23 05:19 Respiratory Rate 10 L 02/04/23 05:19 Blood Pressure 109/75 02/04/23 05:01 Pulse Oximetry 98 02/04/23 05:19 Oxygen Delivery Room Air 02/04/23 02:06 Discharge Plan Discharge Clinical Impression: Allergic reaction Qualifiers: Encounter type: initial encounter Qualified Code(s): T78.40XA - Allergy, unspecified, initial encounter Patient Disposition: Home, Self-Care Condition: Stable Instructions: Antibiotic Form, General Allergic Reaction (ED) Additional Instructions: prednisone as prescribed Benadryl every 6-8 hours as needed for itching or swelling avoid heat return to the emergency department for any difficulty swallowing or breathing Prescriptions: New prednisone 50 mg tablet 50 mg PO DAILY Qty: 4 0RF Follow-up/Referrals: Ezequiel Castañeda MD [Primary Care Provider] - Time of Disposition: 05:47
== END 2023-02-04 05:58 | disposition home or self-care (01) ==
PROVIDERS: Emergency Provider Emergency Medicine; PCP Emergency Medicine
DX: T78.40XA Allergy, unspecified, initial encounter (principal); X58.XXXA Exposure to other specified factors, initial encounter; Z90.81 Acquired absence of spleen
CPT/HCPCS: 96374; 96375; 99284; J1200; J2930

== ENCOUNTER 2023-02-10 14:40 | Emergency (ER) | payer OTHER, MEDICAID, SELFPAY ==
[2023-02-10 14:49] VITALS: BP 118/61; PULSE 69; RESP 16; TEMP 37.3; O2SAT 100
--- NOTE | 2023-02-10 15:05 | ED.URI ---
HPI - URI/Sore Throat General Chief Complaint: Upper Respiratory Infection Stated Complaint: Bodyaches Time Seen by Provider: 02/10/23 15:06 Source: patient and RN notes reviewed Mode of arrival: ambulatory Limitations: no limitations History of Present Illness HPI Narrative: 32-year-old male presenting for complaint of headache, body aches, sinus congestion, cough, fever/chills. onset this morning. Endorses multiple sick contacts. Not taking anything for symptoms. Denies sob, wheezing, n/v/d. History of splenectomy. Treated one week ago with steroid for allergic reaction. MD elicited complaint: cough Related Data Home Medications Medication Instructions Recorded Confirmed No Home Medications 02/10/23 02/10/23 Allergies Allergy/AdvReac Type Severity Reaction Status Date / Time red dye Allergy Intermediate Swelling Verified 02/10/23 14:49 of Lip/Tongue/Throat amoxicillin Allergy Mild Unknown Verified 12/29/22 12:14 Penicillins Allergy Mild Unknown Verified 12/29/22 12:14 Review of Systems Review of Systems: CONSTITUTIONAL: Endorses malaise, chills, sweats, fever EYES: Denies visual changes, redness, or discharge ENT: Reports rhinorrhea, congestion, denies sinus pain, otalgia, sore throat CARDIOVASCULAR: Denies chest pain, palpitations, edema RESPIRATORY: Reports cough, post nasal drainage. Denies dyspnea GASTROINTESTINAL: Denies abdominal pain, nausea, vomiting, diarrhea SKIN: Denies rash or itching MUSCULOSKELETAL: Endorses myalgia NEUROLOGIC: Endorses headache PMFSH Past Medical History Medical History History of ITP Surgical History Surgical History H/O splenectomy History of appendectomy Social History Social History Smoking status: Current every day smoker Alcohol intake: current Substance use type: crack/cocaine Other substance usage details: cocaine over the weekend Exam Narrative: GENERAL: well-appearing, nontoxic no acute distress. HEAD: Normocephalic EYES: conjunctivae clear ENT: Mucous membranes moist. TMs pearly tolbert with dull light reflex bilaterally; no tragal tenderness. NECK: Supple. No lymphadenopathy CHEST: Clear to auscultation, breath sounds equal. No wheezing, rhonchi, rales, or stridor. No respiratory distress, speaks in full sentences. HEART: Regular rate and rhythm. No murmur heard. SKIN: Warm, dry, no rash. NEURO: Alert and oriented x3. PSYCH: Normal mood and affect Course Course Emergency Course: Patient is aware of diagnosis, understands and agrees to treatment plan. Anticipatory guidance given. Patient agrees to follow-up as directed and is aware of reasons to seek care at the emergency department. Portions of this record may have been created with voice recognition software Level of Care: Express Care Visit Vital Signs Vital signs: Vital Signs Temperature 99.1 F 02/10/23 14:49 Pulse Rate 69 02/10/23 14:49 Respiratory Rate 16 02/10/23 14:49 Blood Pressure 118/61 02/10/23 14:49 Pulse Oximetry 100 02/10/23 14:49 Oxygen Delivery Room Air 02/10/23 14:49 Temperature 99.1 F 02/10/23 14:49 Pulse Rate 69 02/10/23 14:49 Respiratory Rate 16 02/10/23 14:49 Blood Pressure 118/61 02/10/23 14:49 Pulse Oximetry 100 02/10/23 14:49 Oxygen Delivery Room Air 02/10/23 14:49 reviewed MDM - URI/Sore Throat MDM Narrative Medical decision making narrative: POS covid. results reviewed with patient. Discussed physical exam findings. Advised supportive measures and signs/symptoms to go to the ER. Pt is appropriate for outpt treatment and f/u. Differential Diagnosis Differential diagnosis: Likely upper respiratory infection, sinusitis and viral infection Discharge Plan Discharge Clinical Impression: COVID-19 Patient Disposition
== END 2023-02-10 15:16 | disposition home or self-care (01) ==
PROVIDERS: Emergency Provider Nurse Practitioner Family; PCP Emergency Medicine
DX: U07.1 COVID-19 (principal); F17.210 Nicotine dependence, cigarettes, uncomplicated
CPT/HCPCS: 87426; 87804; 99213; C9803; G0463

== ENCOUNTER 2023-05-27 11:43 | Emergency (ER) | payer OTHER, SELFPAY ==
--- NOTE | 2023-05-27 11:45 | ED.ALLEREA ---
HPI - Allergic Reaction General Chief complaint: Allergic Reaction Stated complaint: Allergic Reaction Time Seen by Provider: 05/27/23 11:45 Source: patient Mode of arrival: ambulatory Limitations: no limitations History of Present Illness HPI narrative: Patient is a 32-year-old male who presents with left eye swelling itchiness along with mouth tingling that started this morning. Patient states he ate Olives and fetta cheese last night. Patient states last time he ate this he had allergic reaction and was seen in the ER. Denies any shortness of breath, lip, throat or tongue swelling. As taking Benadryl this morning at 6:00 a.m.. Related Data Home Medications Medication Instructions Recorded Confirmed dextroamphetamine-amphetamine 7.5 7.5 mg PO DAILY 05/27/23 05/27/23 mg tablet (Adderall) hydroxyzine HCl 25 mg tablet 25 mg PO DAILY 05/27/23 05/27/23 Allergies Allergy/AdvReac Type Severity Reaction Status Date / Time red dye Allergy Intermediate Swelling Verified 05/27/23 11:53 of Lip/Tongue/Throat amoxicillin Allergy Mild Unknown Verified 05/27/23 11:53 Penicillins Allergy Mild Unknown Verified 05/27/23 11:53 Olives with Feta Allergy Swelling Uncoded 05/27/23 12:12 cheese-[employer] of [employer] Eye Review of Systems Review of Systems: All systems reviewed & are unremarkable except as noted in HPI and below Constitutional: Constitutional: Denies body ache(s), Denies chills, Denies fatigue, Denies fever(s), Denies headache(s), Denies malaise and Denies weakness Eyes: Eyes: Denies blurry vision, Denies irritation, Denies loss of vision and Reports other (Left eye swelling) ENT: Denies otalgia, Denies headache(s), Denies nasal discharge, Denies sinus pain and Denies sore throat Cardiovascular: Cardiovascular: Denies chest pain, Denies irregular heart rhythm and Denies dyspnea Respiratory: Respiratory: Denies dyspnea Gastrointestinal: Gastrointestinal: Denies abdominal pain, Denies melena, Denies hematochezia, Denies diarrhea, Denies nausea and Denies vomiting Musculoskeletal: Musculoskeletal: Denies back pain, Denies myalgias and Denies arthralgias Integumentary/Breasts: Skin/Breast: Denies pruritus and Denies rash Neurologic: Denies headache(s), Denies loss of vision and Denies weakness Psychiatric: Psychiatric: Reports no additional psychiatric complaints Endocrine: Endocrine: Denies fatigue PMFSH Past Medical History Medical History History of ITP Surgical History Surgical History H/O splenectomy History of appendectomy Social History Social History Smoking status: Current every day smoker Alcohol intake: current Substance use type: crack/cocaine Other substance usage details: cocaine over the weekend Comments At time of signature, agree with nursing past medical, surgical, social and family history. There is no relevant family history pertinent to the presenting complaint. Exam Const: General: cooperative, healthy appearing, comfortable, no acute distress and well nourished Nutritional Appearance: well nourished Orientation/consciousness: patient oriented x3 Limitations: no limitations HENMT: Head: normal to inspection, normocephalic and atraumatic Ears: hearing grossly normal bilaterally and external ears normal Face/Nose/Sinus: Normal external nose present, normal facial exam and face symmetric Face and sinus: normal facial exam and face symmetric Mouth: Yes Normal oral and palatal mucosa present, Yes lip normal, Yes tongue normal, Yes oropharynx normal and Yes moist mucous membranes Teeth and gingiva: dentition normal Throat: posterior oropharynx normal Eyes: General: appearance normal, both eyes and all related structures Alignment and Position: alignment normal and position normal Periorbital: periorbital
[2023-05-27 12:00] VITALS: BP 101/61; PULSE 68; RESP 18; TEMP 36.9; O2SAT 100
[2023-05-27] MEDS: diphenhydrAMINE HCl INJ 50 MG/ML VIAL IM (12:32)
[2023-05-27] MEDS: methylPREDNISolone SOD SUCC 125 MG VIAL IM (12:33)
== END 2023-05-27 13:05 | disposition home or self-care (01) ==
PROVIDERS: Emergency Provider Nurse Practitioner Family; PCP Emergency Medicine
DX: T78.40XA Allergy, unspecified, initial encounter (principal); F17.200 Nicotine dependence, unspecified, uncomplicated; D69.3 Immune thrombocytopenic purpura
CPT/HCPCS: 96372; 99214; G0463; J1200; J2919

== ENCOUNTER 2023-06-15 08:47 | Emergency (ER) | payer OTHER, SELFPAY ==
--- NOTE | 2023-06-15 08:48 | ED.URI ---
HPI - URI/Sore Throat General Chief Complaint: Upper Respiratory Infection Stated Complaint: Sore Throat Time Seen by Provider: 06/15/23 09:04 Source: patient, RN notes reviewed and old records reviewed Mode of arrival: ambulatory Limitations: no limitations History of Present Illness HPI Narrative: 32-year-old male presents to the [facility] with complaints of a sore throat since yesterday. Reports he was sent home on Thursday for a fever. Denies any treatment prior to arrival. Has had a stuffy nose, right ear pressure Reports girlfriend tested positive yesterday for strep Onset (ago): day(s) (1) Related Data Home Medications Medication Instructions Recorded Confirmed hydroxyzine HCl 25 mg tablet 25 mg PO DAILY 05/27/23 06/15/23 methylphenidate HCl 1 cap PO DIRECTED 06/15/23 06/15/23 Allergies Allergy/AdvReac Type Severity Reaction Status Date / Time red dye Allergy Intermediate Swelling Verified 06/15/23 09:00 of Lip/Tongue/Throat amoxicillin Allergy Mild Unknown Verified 06/15/23 09:00 Penicillins Allergy Mild Unknown Verified 06/15/23 09:00 Olives with Feta Allergy Swelling Uncoded 06/15/23 09:00 cheese-[employer] Review of Systems Review of Systems: All systems reviewed & are unremarkable except as noted in HPI and below Constitutional: Constitutional: Reports no additional constitutional complaints Eyes: Eyes: Reports no additional eye complaints ENT: Reports as per HPI and Reports sore throat Cardiovascular: Cardiovascular: Reports no additional cardiovascular complaints, Denies chest pain and Denies dyspnea Respiratory: Respiratory: Reports no additional respiratory complaints, Denies chest congestion, Denies cough and Denies dyspnea Gastrointestinal: Gastrointestinal: Reports no additional gastrointestinal complaints, Denies abdominal pain, Denies nausea and Denies vomiting Musculoskeletal: Musculoskeletal: Reports no additional musculoskeletal complaints Integumentary/Breasts: Skin/Breast: Reports system reviewed and no additional complaints, except as docu Neurologic: Reports system reviewed and no additional complaints, except as documented Psychiatric: Psychiatric: Reports no additional psychiatric complaints Allergic/Immunologic: Allergic/Immunologic: Reports no additional allergic/immunologic complaints PMFSH Past Medical History Medical History History of ITP Surgical History Surgical History H/O splenectomy History of appendectomy Social History Social History Smoking status: Current every day smoker Alcohol intake: current Substance use type: crack/cocaine Other substance usage details: cocaine over the weekend Comments At the time of my signature, I reviewed and agree with the nursing past medical, surgical, social, and family history. There is no relevant family history pertinent to the patient complaint. Exam Const: General: cooperative, healthy appearing, comfortable, no acute distress, well developed, alert and well nourished Nutritional Appearance: well nourished Orientation/consciousness: patient oriented x3 Limitations: no limitations HENMT: Head: normal to inspection Ears: hearing grossly normal bilaterally, external ears normal, EAC's normal, mastoids normal, no periauricular adenopathy and TM abnormal with fluid behind the TM bilateral; not bulging and not erythematous Face/Nose/Sinus: Normal external nose present, Normal nares present, Normal nasal mucous membranes and turbinates present, normal facial exam and face symmetric Face and sinus: normal facial exam and face symmetric Mouth: Yes Normal oral and palatal mucosa present, Yes lip normal and Yes moist mucous membranes Throat: posterior oropharynx normal, tonsils normal, uvula midline, postnasal drainage and no uvular
[2023-06-15 09:06] VITALS: BP 111/65; PULSE 64; RESP 14; TEMP 36.7; O2SAT 100
== END 2023-06-15 09:25 | disposition home or self-care (01) ==
PROVIDERS: Emergency Provider Nurse Practitioner; PCP Emergency Medicine
DX: R09.82 Postnasal drip (principal); J02.0 Streptococcal pharyngitis; D69.3 Immune thrombocytopenic purpura; F17.200 Nicotine dependence, unspecified, uncomplicated; F14.90 Cocaine use, unspecified, uncomplicated
CPT/HCPCS: 87081; 87147; 87880; 99213; G0463

== ENCOUNTER 2023-08-20 12:44 | Outpatient (CLI) | payer OTHER, SELFPAY ==
--- NOTE | ~2023-08-20 | US_ITS ---
EXAMINATION: US thyroid DATE: 08/20/2023 13:06 INDICATION: Enlarged thyroid gland TECHNIQUE: Multiple ultrasound images of the thyroid were obtained. COMPARISON: None. FINDINGS: The right thyroid lobe measures 5.8 x 2.7 x 2.3 cm. The left thyroid lobe measures 4.5 x 2.0 x 1.8 c m. The isthmus measures 0.5 cm. There is heterogeneous echogenicity throughout the thyroid gland. No discrete nodules identified. Diffusely increased vascular flow is present. IMPRESSION: Sonographic findings that can be seen with Tiffany's thyroiditis or Graves' disease. Reviewed, dictated and finalized at location K. IMPRESSION: Sonographic findings that can be seen with Tiffany's thyroiditis or Graves' d isease.
== END 2023-08-20 12:45 ==
PROVIDERS: PCP Emergency Medicine; Visit Provider Emergency Medicine
DX: E04.9 Nontoxic goiter, unspecified (principal)
CPT/HCPCS: 76536

== ENCOUNTER 2023-11-04 08:41 | Emergency (ER) | payer MEDICAID, SELFPAY ==
[2023-11-04 08:50] VITALS: BP 113/63; PULSE 63; RESP 16; TEMP 36.6; O2SAT 99
--- NOTE | 2023-11-04 08:53 | ED.SKABFB ---
HPI - Skin/Abscess/Foreign Bdy General Chief complaint: Unspecified Stated complaint: bruises on body,blood from nose Time Seen by Provider: 11/04/23 08:53 Source: patient, RN notes reviewed and old records reviewed Mode of arrival: ambulatory Limitations: no limitations History of Present Illness HPI narrative: Patient with history of ITP and resultant splenectomy several years ago presents today with complaints of petechial rash, excessive bruising, bleeding from the nose, and blood filled blisters inside the mouth. He reports symptoms have been present for couple of days, worsening. He reports that he is feeling somewhat nauseous because he has been swallowing blood from his mouth and nose. He denies all injury and trauma. He denies any fever, chills, sweats. He voices no other concerns or complaints at this time Related Data Home Medications Medication Instructions Recorded Confirmed hydroxyzine HCl 25 mg tablet 25 mg PO DAILY 05/27/23 06/15/23 methylphenidate HCl 1 cap PO DIRECTED 06/15/23 06/15/23 Allergies Allergy/AdvReac Type Severity Reaction Status Date / Time red dye Allergy Intermediate Swelling Verified 06/15/23 09:00 of Lip/Tongue/Throat amoxicillin Allergy Mild Unknown Verified 06/15/23 09:00 Penicillins Allergy Mild Unknown Verified 06/15/23 09:00 Olives with Feta Allergy Swelling Uncoded 06/15/23 09:00 cheese-[employer] Review of Systems Review of Systems: All systems reviewed & are unremarkable except as noted in HPI and below Constitutional: Constitutional: Reports as per HPI and Reports no additional constitutional complaints ENT: Reports system reviewed and no additional complaints, except as documented, Reports as per HPI and Reports other (Nose bleeds, blood-filled blisters inside the mouth) Cardiovascular: Cardiovascular: Reports as per HPI and Reports no additional cardiovascular complaints Respiratory: Respiratory: Reports as per HPI and Reports no additional respiratory complaints Gastrointestinal: Gastrointestinal: Reports no additional gastrointestinal complaints, Reports nausea and Denies vomiting PMFSH Past Medical History Medical History History of ITP Surgical History Surgical History H/O splenectomy History of appendectomy Social History Social History (Reviewed 11/04/23 @ 08:54 by CORNELL Osullivan Smoking status: Current every day smoker Alcohol intake: current Substance use type: crack/cocaine Other substance usage details: cocaine over the weekend Exam Const: General: cooperative, no acute distress, alert and awake Orientation/consciousness: oriented to person, oriented to place and oriented to time HENMT: Head: normal to inspection Mouth: Yes moist mucous membranes and Yes Abnormal oral and palatal mucosa present palatal petechiae, petechiae and other (Blood filled blisters) Resp: Effort & Inspection: normal respiratory effort and able to speak in complete sentences Auscultation: clear to auscultation bilaterally, no crackles, no rales, no rhonchi and no wheezes Cardio: Palpation: normal PMI Rate: regular rate Rhythm: regular rhythm Heart sounds: S1 normal heart sound present and S2 normal heart sound present Skin: General skin exam: pallor and rashes (Petechial rash to arms legs) Trauma: other (Scattered bruises to arms and legs) Neuro: General: oriented to person, oriented to place and oriented to time Cranial nerves: Yes CN's II-XII intact bilaterally Psych: Appearance: grossly normal Thought process: Normal thought process present Insight: Good insight present (Psych) Judgement: Good judgement present (Psych) Course Course Level of Care: Express Care Visit Vital Signs Vital signs: Vital Signs Temperature 97.9 F 11/04/23 08:50 Pulse Rate 63 11/04/23 08:50 Respiratory Rate 16 11/04/23
== END 2023-11-04 09:21 | disposition short-term general hospital (02) ==
PROVIDERS: Emergency Provider Nurse Practitioner Family; PCP Emergency Medicine
DX: R23.3 Spontaneous ecchymoses (principal); Z90.81 Acquired absence of spleen
CPT/HCPCS: 99212; G0463

== ENCOUNTER 2023-11-04 09:34 | Inpatient (IN) | payer MEDICAID, SELFPAY ==
[2023-11-04] VITALS (13 sets, daily range): BP systolic 101–115; BP diastolic 52–70; PULSE 50–93; RESP 16–18; TEMP 36.2–36.9; O2SAT 94–100; BMI 24.0
--- NOTE | ~2023-11-04 | CT_ITS ---
CT chest abdomen pelvis w con Ordering provider: Giovanny Banks MD History: 33 years Male with . Left axillary lymphadenopathy . Comparison: None. Technique: CT chest with IV contrast. CT abdomen and pelvis CT abdomen and pelvis with IV and with or al contrast. The dose-length product was 507.71 mGy-cm. 100 mL Omnipaque 350 was given IV. FINDINGS: CHEST: --VISUALIZED THORACIC INLET: Hypodensities in the right lobe of the thyroid. Ultrasound evaluation ad vised. Bilateral axillary and retropectoral lymph nodes are noted with the largest measures 2.1 cm. --MEDIASTINUM: Aorta/coronary arteries: Mild atheromatous disease. Heart/other: The heart is not enlarged. Lymph nodes: No mediastinal or hilar adenopathy. --LUNGS: Pleural-based nodule near to the oblique fissure on the right lower lobe measuring 11 mm. No pulmonary masses. No infiltrates or effusions. No pneumothorax. --MUSCULOSKELETAL: Soft tissues: The superficial soft tissues are normal. Bones: Normal No suspicious bony lytic or sclerotic lesions. ABDOMEN/PELVIS: --MUSCULOSKELETAL: Bones: Normal spine. No suspicious bony lytic or sclerotic lesions. Superficial soft tissues: Left inguinal lymph nodes with the largest measures 2 cm. . Otherwise, The superficial soft tissues are normal. --UPPER ABDOMINAL ORGANS: Liver: Normal. Gallbladder: Contracted. Spleen: Status post splenectomy. Stomach/duodenum: Normal. Pancreas: Normal. Adrenals: Normal. Kidneys: Normal. Stone in the left kidney upper and lower pole. --PELVIC ORGANS: The bladder is normal. No bladder stones. --BOWEL AND MESENTERY: Colon: No evidence of diverticulitis.. Status post appendectomy. Small Bowel: Normal. No obstruction. Peritoneum/mesentery: No free air or free fluid. No mesenteric lymphadenopathy. Right iliac lymph nod e is also noted measuring 1.5 cm --RETROPERITONEUM: Normal aorta. No retroperitoneal lymphadenopathy. Para-aortic lymph nodes are se en with the largest measures 1.7 cm. IMPRESSION: CHEST: 1. No acute cardiopulmonary pathology. 2. Bilateral axillary lymphadenopathy with lymph nodes posterior to the pectoralis muscles. 3. Nodule in the right lower lobe. Three-month follow-up or PET scan is advised. ABDOMEN/PELVIS: 1. Status post splenectomy. 2. Hyperdense areas in both kidneys which may be stones or early excretion of contrast. 3. Small para-aortic lymph nodes with the largest measuring 1.7 cm. Reviewed, dictated and finalized at location A. IMPRESSION: CHEST: 1. No acute cardiopulmonary pathology. 2. Bilateral axillary lymphadenopathy with lymph nodes posterior to the pector shawanda muscles. 3. Nodule in the right lower lobe. Three-month follow-up or PET scan is advise d. ABDOMEN/PELVIS: 1. Status post splenectomy. 2. Hyperdense areas in both kidneys which may be stones or early excretion of contrast. 3. Small para-aortic lymph nodes with the largest measuring 1.7 cm.
[2023-11-04 09:54] LABS: Basophils Absolute Auto 0.1 K/mm3 (0.0-0.1); Basophils Percent Auto 1.6 % (0.2-1.2); Eosinophils Absolute Auto 0.6 K/mm3 (0-0.3); Hematocrit 41.3 % (42.0-52.0); Hemoglobin 13.9 g/dL (14.0-18.0); Immature Granulocyte Absolute 0.01 K/mm3 (0.00-0.031); Immature Granulocyte Percent A 0.1 % (0-0.5); Lymphocytes Absolute Auto 2.26 K/mm3 (0.9-3.2); Lymphocytes Percent Auto 32.8 % (18.3-44.2); Mean Corpuscular HGB Conc 33.7 g/dl (32-36); Mean Corpuscular Hemoglobin 31.2 pg (26-34); Mean Corpuscular Volume 92.8 fl (80-100); Monocytes Absolute Auto 0.7 K/mm3 (0.1-0.6); Neutrophils Absolute Auto 3.3 K/mm3 (1.3-6.7); Neutrophils Percent Auto 47.5 % (45.5-73.1); Red Blood Count 4.45 M/mm3 (4.6-6.20); Red Cell Distribution Width 13.6 % (11.5-14.5); White Blood Count 6.9 K/mm3 (4.5-10.0)
[2023-11-04 10:01] LABS: Alanine Aminotransferase 13 U/L (6-50); Albumin Level 4.8 g/dL (3.5-5.1); Alkaline Phosphatase 46 U/L (38-126); Anion Gap 10 mmol/L (4-12); Aspartate Amino Transferase 20 U/L (17-59); Bilirubin,Total 0.4 mg/dL (0.2-1.3); Blood Urea Nitrogen 10 mg/dL (9-20); Calcium 9.2 mg/dL (8.4-10.2); Carbon Dioxide 28 mmol/L (22-30); Chloride 101 mmol/L (98-107); Estimated CRCL calculation 105 ml/min; Estimated Glomerular Filt Rate > 60; Glucose 94 mg/dL (65-110); Potassium 4.2 mmol/L (3.4-5.0); Sodium 139 mmol/L (137-145)
[2023-11-04 10:02] LABS: INR 0.9
[2023-11-04 10:03] LABS: Partial Thromboplastin Time 27.8 Seconds (22.3-36.8)
[2023-11-04 10:14] LABS: Platelet Count Result < 3 k/mm3 (150-375)
[2023-11-04 10:15] LABS: Atypical Lymphocytes Present; Hypochromasia 1+; Platelet Estimate Decreased (Adequate); Schistocytes None Seen
--- NOTE | 2023-11-04 10:23 | ED.GENADULT ---
HPI - General Adult General Chief complaint: Unspecified <SUDHA Orr Last Filed: 11/04/23 12:10> Stated complaint: idiopathic bleeding <SUDHA Orr Last Filed: 11/04/23 12:10> Time Seen by Provider: 11/04/23 09:41 <SUDHA Orr Last Filed: 11/04/23 12:10> Source: patient <SUDHA Orr Last Filed: 11/04/23 12:10> Mode of arrival: ambulatory <SUDHA Orr Last Filed: 11/04/23 12:10> Limitations: no limitations <SUDHA Orr Last Filed: 11/04/23 12:10> History of Present Illness HPI narrative: This is a 33-year-old male that presents to the emergency department for abnormal rash. Reports a petechial rash and unexplained bleeding/bruising. 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 He had a splenectomy 10 years ago and hadn't had any problem since. Reports diffuse petechial rash, nosebleeds, bleeding in his gums. Denies any recent illness or injuries. <SUDHA Orr Last Filed: 11/04/23 12:10> Related Data Home medications: Home Medications Medication Instructions Recorded Confirmed hydroxyzine HCl 25 mg tablet 25 mg PO TID PRN anxiety 05/27/23 11/04/23 methylphenidate HCl 18 mg PO BID 06/15/23 11/04/23 <SUDHA Orr Last Filed: 11/04/23 12:10> Allergies/adverse reactions: Allergies Allergy/AdvReac Type Severity Reaction Status Date / Time red dye Allergy Intermediate Swelling Verified 11/04/23 10:51 of Lip/Tongue/Throat amoxicillin Allergy Mild Unknown Verified 11/04/23 10:51 Penicillins Allergy Mild Unknown Verified 11/04/23 10:51 Olives with Feta Allergy Swelling Uncoded 11/04/23 10:51 cheese-[employer] of the Eye <SUDHA Orr Last Filed: 11/04/23 12:10> Review of Systems Review of Systems: CONSTITUTIONAL: Denies fever ENT: Reports epistaxis GENITOURINARY: Denies hematuria. SKIN: Reports rash <Janeth Wilson PA-C - Last Filed: 11/04/23 12:10> All systems reviewed & are unremarkable except as noted in HPI and below <Janeth Wilson PA-C - Last Filed: 11/04/23 12:10> [facility] Past Medical History Medical History: Medical History History of ITP <Janeth Wilson PA-C - Last Filed: 11/04/23 12:10> Surgical History Surgical History: Surgical History H/O splenectomy History of appendectomy <Janeth Wilson PA-C - Last Filed: 11/04/23 12:10> Social History Social History: Social History Smoking status: Never smoker Smokeless tobacco user: other Alcohol intake: never Substance use type: marijuana and crack/cocaine Other substance usage details: cocaine over the weekend Last use: 10/31/23 Do You Feel Safe in your Home?: Yes Lack of Transportation: No Lack of Food: Never True Current Housing: I Have Housing Concerned About Future Housing: No Difficulty Paying Gas/Electric Bills: YES Difficulty Paying for Meds: YES Currently Unemployed: YES Education: High School Diploma/GED Difficulty w/ Childcare or Family Care: No Spiritual care concerns: No <Janeth Wilson PA-C - Last Filed: 11/04/23 12:10> Exam Narrative: GENERAL: Well-appearing, well-nourished, and in no acute distress. HEAD: Normocephalic, atraumatic. EYES: EOMI. ENT: Nares clear, no rhinorrhea or epistaxis. Mucous membranes moist. Oropharynx without tonsillar hypertrophy exudate or other lesions. Petechiae in the gums. NECK: Supple. No adenopathy or masses. CHEST: Clear to auscultation. No respiratory distress. No wheezes rales or rhonchi HEART: Regular rate and rhythm. No murmur heard. Normal peripheral pulses. EXTREMITIES: Normal range of motion. No edema. SKIN: Warm, dry. Diffuse petechial rash NEURO: No focal deficits. Alert and oriented x3. PSYCH: Normal mood and affect
[2023-11-04 12:24] LABS: Free T4 Free Thyroxine Reflex 0.82 ng/dL (0.78-2.19)
--- NOTE | 2023-11-04 12:42 | ADMGEN ---
This patient, Irwin Granados, was admitted to 2 Medical Room 261-01. Patient/family oriented to hospital policies and general routines including ID bracelet, bed and alarms, visiting hours, pain management, procedures, bathroom and other care routines, personal items, smoking policy, room service/diet, and visiting hours. Information on how to activate the Rapid Response Team has been discussed. Patient/Family are encouraged to report perceived risks to care and to ask questions if they do not understand what they are told or what they should do.
[2023-11-04 13:11] LABS: Total Triiodothyronine (T3) 1.31 NG/ML (0.97-1.69)
[2023-11-04] MEDS: SODIUM CHLORIDE 0.9% IV 250 ML 30 ML IV CONT (13:27)
--- NOTE | 2023-11-04 14:18 | PM.IMHP ---
H&P: HPI History of Present Illness Date/Time: 11/04/23 14:18 Chief Complaint: Bruising Narrative: 33 y/o M presents here with bruising, rash, petechiae, and blood blisters with PMH of idiopathic thrombocytopenia purpura s/p splenectomy (2013). The patient presents here from a local urgent care for further evaluation of bruising, rash, petechiae, and blood blisters that started on Thursday (10/31). Patient has history of idiopathic thrombocytopenia purpura which was treated via splenectomy in 2013. He reports no recurrence of ITP since procedure. Denies hematochezia or melena. Patient does not follow a specific diet. ETOH is once monthly. Denies any history of GI issues or diarrhea. Patient takes multivitamin that has zinc and magnesium. Has received MMR and varicella vaccinations. Patient has distant history of IVDU, has not used since 2013. No recent international travel. Denies any fever. Patient did have strep and flu in May of 2023. Patient reports melanoma from mother and fathers side as well as papillary cancer (mother and aunt). No redness of tenderness to extremities. Denies any inflamed joints. Patient was started on methylphenidate or Atarax in April 2023. Reports he has been under significant stress in the last few months: lost his job, has a baby on the way, trying to get disability. Initial VS at presentation: 97.2? F, HR 56, RR 16, 115/70, and 98% on RA. ED workup showed: No leukocytosis, hemoglobin 13.9 (previously 12.8 in 2022), platelet count <3, and TSH 6.780 with normal T4/T3. Review of Systems Review of Systems: All systems reviewed & are unremarkable except as noted in HPI and below [facility] Past Medical History Medical History Tiffany's disease History of ITP Psoriatic arthritis Surgical History Surgical History H/O splenectomy History of appendectomy Social History Social History Smoking status: Never smoker Smokeless tobacco user: other Alcohol intake: never Substance use type: marijuana and crack/cocaine Other substance usage details: cocaine over the weekend Last use: 10/31/23 Do You Feel Safe in your Home?: Yes Lack of Transportation: No Lack of Food: Never True Current Housing: I Have Housing Concerned About Future Housing: No Difficulty Paying Gas/Electric Bills: YES Difficulty Paying for Meds: YES Currently Unemployed: YES Education: High School Diploma/GED Difficulty w/ Childcare or Family Care: No Spiritual care concerns: No Meds Home Medications and Allergies Home Medications Medication Instructions Recorded Confirmed Type hydroxyzine HCl 25 mg tablet 25 mg PO TID PRN anxiety 05/27/23 11/04/23 History methylphenidate HCl 18 mg PO BID 06/15/23 11/04/23 History Allergies Allergy/AdvReac Type Severity Reaction Status Date / Time red dye Allergy Intermediate Swelling Verified 11/04/23 10:51 of Lip/Tongue/Throat amoxicillin Allergy Mild Unknown Verified 11/04/23 10:51 Penicillins Allergy Mild Unknown Verified 11/04/23 10:51 Olives with Feta Allergy Swelling Uncoded 11/04/23 10:51 cheese-[employer] [facility] [employer] Eye Vital Signs Vital Signs - 24 hr 11/04/23 09:41 11/04/23 12:00 11/04/23 12:15 Temperature 97.2 F L 97.8 F 97.8 F Pulse Rate 56 L 65 59 L Respiratory Rate 16 16 16 Blood Pressure 115/70 111/66 110/62 Pulse Oximetry 98 100 100 11/04/23 13:35 11/04/23 13:50 Temperature 97.5 F L 97.6 F Pulse Rate 69 64 Respiratory Rate 18 18 Blood Pressure 115/63 115/61 Pulse Oximetry 100 98 Exam Const: General: comfortable and no acute distress Other: , male, nontoxic appearance HENMT: Face/Nose/Sinus: Normal nares present Mouth: Yes moist mucous membranes Eyes: General: appearance normal, both eyes and all related structures Sclera: s
[2023-11-04 15:33] LABS: Hepatitis B Surface Antigen Negative (Negative)
[2023-11-04 15:38] LABS: HAV RESULT Negative (Negative); Hepatitis B Core IgM Result Negative (Negative)
[2023-11-04 15:44] LABS: HIV 1/2 Ab P24 Ag Result Negative (Negative)
[2023-11-04 15:50] LABS: Hepatitis C Virus Antibody Negative (Negative)
--- NOTE | 2023-11-04 18:36 | PDONCCN ---
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 Patient came to the ER with lower extremity rash and petechial hemorrhages. He was having some mouth blisters and gum bleeding. He denies any melena hematochezia. He has never received platelet transfusion. Since his splenectomy his ITP was in remission. Labs showed platelet count of less than 3000 with hemoglobin of 13.9. Denies any recent infections. Denies any other new complaints. Review of Systems - Review of Systems All systems reviewed & are unremarkable except as noted in [facility] and [facility] Medical History: Medical History (Last Reviewed 11/04/23 @ 08:54 by Roberta Perkins APRN) History of ITP Surgical History: Surgical History (Last Reviewed 11/04/23 @ 08:54 by Roberta Perkins APRN) H/O splenectomy History of appendectomy - Social History Social History: Social History (Last Reviewed 11/04/23 @ 08:54 by Roberta Perkins APRN) Alcohol Use: Alcohol intake: never Substance Use: Substance use type: marijuana Substance use type: crack/cocaine Other substance usage details: cocaine over the weekend Last use: 10/31/23 Others: Spiritual care concerns: No Smoking Status: Smoking status: Never smoker Smokeless tobacco user: other Social Determinants of Health: Do You Feel Safe in your Home?: Yes Has the Lack of Transportation Kept You From Medical Appointments or From Getting Medications?: No Within the Past 12 Months, Were You Worried Whether Your Food Would Run Out Before You Got Money to Buy More?: Never True What is Your Housing Situation Today?: I Have Housing Are You Worried That in the Next 2 Months, You May Not Have Your Own Housing to Live In?: No Do You Have Trouble Paying Your Heating Or Electricity Bill?: Yes Do You Have Trouble Paying For Medicines?: Yes Are You Currently Unemployed and Looking for Work?: Yes Highest Level of Education Completed: High School Diploma/GED Do You Have Trouble With Childcare or the Care of a Family Member?: No Exam - Vital Signs Vital Signs - 24 hr 11/04/23 09:41 11/04/23 12:00 11/04/23 12:15 Temperature 36.2 C L 36.6 C 36.6 C Pulse Rate 56 L 65 59 L Respiratory Rate 16 16 16 Blood Pressure 115/70 111/66 110/62 Pulse Oximetry 98 100 100 Oxygen Delivery 11/04/23 13:35 11/04/23 13:50 11/04/23 14:50 Temperature 36.4 C L 36.4 C 36.4 C Pulse Rate 69 64 62 Respiratory Rate 18 18 18 Blood Pressure 115/63 115/61 105/58 L Pulse Oximetry 100 98 99 Oxygen Delivery 11/04/23 12:19 11/04/23 15:40 11/04/23 16:45 Temperature 36.7 C 36.7 C Pulse Rate 55 L 50 L Respiratory Rate 18 18 Blood Pressure 108/57 L 105/57 L Pulse Oximetry 100 100 Oxygen Delivery Room Air 11/04/23 17:00 11/04/23 18:00 Temperature 36.5 C 36.5 C Pulse Rate 65 82 Respiratory Rate 18 18 Blood Pressure 113/61 102/62 Pulse Oximetry 100 98 Oxygen Delivery - Exam HEENT: EOMI, PERRLA, mucous membranes moist and pink Neck: supple Lungs: clear to auscultation, normal air movement Heart: no murmurs, gallops, or rubs, regular rhythm, regular rate Abdomen: abdomen soft, non-distended, normal bowel sounds Extremities: normal pulses, abnormal pulses Integumentary: no abnormalities Neurological: normal speech Psychological: mental status NL (Left axillary lymphadenopathy) - Lab Results Laboratory Last Values WBC 6.9 K/mm3 (4.5-10.0) 11/04/23 09:46 RBC 4.45 M/mm3 (4.6-6.20) L 11/04/23 09:46 Hgb 13.9 g/dL (14.0-18.0) L 11/04/23 09:46 Hct 41.3 % (42.0-52.0) L 11/04/23 09:46 MCV 92.8 fl (80-100) 11/04/23 09:46
[2023-11-04] MEDS: methylPREDNISolone SOD SUCC 125 MG VIAL IV PUSH (21:07)
[2023-11-04] MEDS: diphenhydrAMINE HCl INJ 50 MG/ML VIAL 25 MG IV PUSH (23:38)
[2023-11-04] MEDS: ACETAMINOPHEN 325 MG TABLET 650 MG PO (23:39)
[2023-11-05] VITALS (11 sets, daily range): BP systolic 103–126; BP diastolic 57–65; PULSE 62–88; RESP 16–20; TEMP 36.2–36.6; O2SAT 96–100
[2023-11-05 05:43] LABS: Basophils Percent Auto 0.2 % (0.2-1.2); Hematocrit 38.3 % (42.0-52.0); Hemoglobin 12.9 g/dL (14.0-18.0); Immature Granulocyte Absolute 0.04 K/mm3 (0.00-0.031); Immature Granulocyte Percent A 0.4 % (0-0.5); Immature Platelet Fraction Pct 16.5 % (0.9-11.2); Lymphocytes Absolute Auto 0.84 K/mm3 (0.9-3.2); Lymphocytes Percent Auto 9.3 % (18.3-44.2); Mean Corpuscular HGB Conc 33.7 g/dl (32-36); Mean Corpuscular Hemoglobin 30.9 pg (26-34); Mean Corpuscular Volume 91.6 fl (80-100); Monocytes Absolute Auto 0.1 K/mm3 (0.1-0.6); Monocytes Percent Auto 1.1 % (2.6-8.5); Red Blood Count 4.18 M/mm3 (4.6-6.20); Red Cell Distribution Width 13.3 % (11.5-14.5)
[2023-11-05 05:49] LABS: Platelet Count Result < 3 k/mm3 (150-375)
[2023-11-05 06:07] LABS: Anion Gap 12 mmol/L (4-12); Blood Urea Nitrogen 14 mg/dL (9-20); Calcium 9.3 mg/dL (8.4-10.2); Carbon Dioxide 21 mmol/L (22-30); Chloride 103 mmol/L (98-107); Estimated CRCL calculation 117 ml/min; Estimated Glomerular Filt Rate > 60; Glucose 148 mg/dL (65-110); Potassium 4.6 mmol/L (3.4-5.0); Sodium 136 mmol/L (137-145)
[2023-11-05 06:15] LABS: Iron 58 ug/dL (49-181)
[2023-11-05 06:24] LABS: Percent Iron Saturation 16 % (20-50)
[2023-11-05 06:32] LABS: Platelet Estimate Adequate (Adequate); Schistocytes None Seen
[2023-11-05 07:01] LABS: Folic Acid 5.6 ng/mL (2.76->20)
[2023-11-05] MEDS: methylPREDNISolone SOD SUCC 125 MG VIAL IV PUSH ×2 (09:06→20:40)
--- NOTE | 2023-11-05 12:28 | PM.IMPN ---
Progress Note: A&P Assessment and Plan (1) Thrombocytopenia: Code(s): D69.6 - Thrombocytopenia, unspecified Status: Acute Assessment and Plan: Patient presents with petechiae and found to have sever thrombocytopenia. Initial labs showed WBC 6.9, hemoglobin 13.9, platelet count <3K, INR 0.9, PT 13.0, PTT 27.8 Schistocytes none, nucleated RBCs normal, atypical lymphocytes present Recent Strep A infection on 06/15/2023 B12/Folate normal. Iron studies normal except TSat 16%. HIV/Viral Hepatitis Panel negative. CT Ch/A/P 11/04/23 - bilateral axillary LNE, RLL 11mm pulmonary nodule, hyperdense areas in both kidneys and small para-aortic LN. Previous lymphadenopathy biopsies done at [facility] were benign, Hematology consulted. Transfused platelets x2 on 11/03. Solu-Medrol started. 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 US of thyroid on 08/20/2023 showed sonographic findings that can be seen with Tiffany's thyroiditis or Graves' disease. TSH elevated at 6.8 but normal TT3/FT4 Monitor (3) History of ITP: Code(s): Z86.2 - Personal history of diseases of the blood and blood-forming organs and certain disorders involving the immune mechanism Status: Acute Assessment and Plan: As above. Patietn s/p splenectomy. Hematology following Plan DVT Prophylaxis: Low risk/contraindicated Code Status: Full code Subjective Date/time seen: 11/05/23 12:28 Interval history: 33yo male with hx of Tiffany's and ITP s/p splenectomy here for petechiae. Assuming care. Chart reviewed. Started on Methylphenadate in april. No other new medications. Noted petechiae on 10/31 and recognized this from prior low plt episodes. Exam Narrative: AF 97.1 124/65 72 20 100% ra Gen - NARD Chest - CTA bilaterally, nml RR CV - RRR S1/S2 Abd - Soft, NT/ND, Positive BS Ext - No pedal edema Neuro - Alert and appropriate Psych - Nml mood and affect Skin - Warm and dry. multiple areas on petechiae mostly in the left mid back and extremities. Objective Data Vital Signs Vital Signs: Vital Signs - 24 hr 11/04/23 13:35 11/04/23 13:50 11/04/23 14:50 Temperature 97.5 F L 97.6 F 97.6 F Pulse Rate 69 64 62 Respiratory Rate 18 18 18 Blood Pressure 115/63 115/61 105/58 L Pulse Oximetry 100 98 99 Oxygen Delivery 11/04/23 15:40 11/04/23 16:45 11/04/23 17:00 Temperature 98.1 F 98.0 F 97.7 F Pulse Rate 55 L 50 L 65 Respiratory Rate 18 18 18 Blood Pressure 108/57 L 105/57 L 113/61 Pulse Oximetry 100 100 100 Oxygen Delivery 11/04/23 18:00 11/04/23 19:00 11/04/23 20:00 Temperature 97.7 F 98.5 F 98.1 F Pulse Rate 82 93 83 Respiratory Rate 18 18 17 Blood Pressure 102/62 108/52 L 101/60 Pulse Oximetry 98 94 95 Oxygen Delivery 11/04/23 21:27 11/05/23 05:44 11/05/23 09:12 Temperature 98.1 F 97.1 F L Pulse Rate 76 62 72 Respiratory Rate 18 20 Blood Pressure 101/58 L 103/63 124/65 Pulse Oximetry 97 98 100 Oxygen Delivery 11/05/23 09:00 Temperature Pulse Rate Respiratory Rate Blood Pressure Pulse Oximetry Oxygen Delivery Room Air Intake/Output Intake/Output: Intake & Output 11/02/23 11/03/23 11/04/23 11/05/23 23:59 23:59 23:59 23:59 Intake Total 987 790 Balance 987 790 Meds/Results Medications: Active Medications Generic Name Dose Route Start Last Admin Trade Name Freq PRN Reason Stop Dose Admin Acetaminophen 650 mg 11/04/23 22:39 11/04/23 23:39 Acetaminophen 325 Mg Tablet PO 650 mg Q6H PRN Administration Mild Pain (1-3) or Fever Sodium Chloride 250 mls @ 30 mls/hr 11/05/23 08:42 Normal Saline Iv IV CONT 11/05/23 17:01 .Q8H20M STA Methylprednisolone Sodium Succinate 125 mg 11/04/23 10:55 11/05/23 09:06 M
[2023-11-05 22:04] LABS: Basophils Percent Auto 0.1 % (0.2-1.2); Hematocrit 35.7 % (42.0-52.0); Hemoglobin 12.4 g/dL (14.0-18.0); Immature Granulocyte Absolute 0.11 K/mm3 (0.00-0.031); Immature Granulocyte Percent A 0.7 % (0-0.5); Immature Platelet Fraction Pct 10.6 % (0.9-11.2); Lymphocytes Absolute Auto 1.48 K/mm3 (0.9-3.2); Lymphocytes Percent Auto 9.4 % (18.3-44.2); Mean Corpuscular HGB Conc 34.7 g/dl (32-36); Mean Corpuscular Hemoglobin 31.2 pg (26-34); Mean Corpuscular Volume 89.9 fl (80-100); Mean Platelet Volume 12.2 fl (7.4-10.4); Monocytes Absolute Auto 0.9 K/mm3 (0.1-0.6); Monocytes Percent Auto 5.8 % (2.6-8.5); Neutrophils Absolute Auto 13.3 K/mm3 (1.3-6.7); Platelet Count Result 60 k/mm3 (150-375); Red Blood Count 3.97 M/mm3 (4.6-6.20); Red Cell Distribution Width 13.2 % (11.5-14.5); White Blood Count 15.8 K/mm3 (4.5-10.0)
[2023-11-05 22:13] LABS: Platelet Estimate Decreased (Adequate); Schistocytes None Seen
[2023-11-06 05:12] VITALS: BP 121/57; PULSE 77; RESP 18; TEMP 37.2; O2SAT 99
[2023-11-06 08:07] VITALS: TEMP 36.3
[2023-11-06 08:11] LABS: Basophils Percent Auto 0.1 % (0.2-1.2); Hematocrit 34.1 % (42.0-52.0); Hemoglobin 11.7 g/dL (14.0-18.0); Immature Granulocyte Absolute 0.14 K/mm3 (0.00-0.031); Immature Granulocyte Percent A 0.9 % (0-0.5); Immature Platelet Fraction Pct 9.3 % (0.9-11.2); Lymphocytes Absolute Auto 1.62 K/mm3 (0.9-3.2); Lymphocytes Percent Auto 10.4 % (18.3-44.2); Mean Corpuscular HGB Conc 34.3 g/dl (32-36); Mean Corpuscular Hemoglobin 31.2 pg (26-34); Mean Corpuscular Volume 90.9 fl (80-100); Mean Platelet Volume 12.1 fl (7.4-10.4); Monocytes Absolute Auto 1.1 K/mm3 (0.1-0.6); Monocytes Percent Auto 6.8 % (2.6-8.5); Neutrophils Absolute Auto 12.7 K/mm3 (1.3-6.7); Neutrophils Percent Auto 81.8 % (45.5-73.1); Platelet Count Result 87 k/mm3 (150-375); Red Blood Count 3.75 M/mm3 (4.6-6.20); Red Cell Distribution Width 13.2 % (11.5-14.5); White Blood Count 15.5 K/mm3 (4.5-10.0)
[2023-11-06] MEDS: methylPREDNISolone SOD SUCC 125 MG VIAL IV PUSH ×2 (08:23→21:37)
[2023-11-06 08:46] LABS: Alanine Aminotransferase 14 U/L (6-50); Albumin Level 4.4 g/dL (3.5-5.1); Alkaline Phosphatase 52 U/L (38-126); Anion Gap 11 mmol/L (4-12); Aspartate Amino Transferase 21 U/L (17-59); Bilirubin,Total 0.3 mg/dL (0.2-1.3); Blood Urea Nitrogen 16 mg/dL (9-20); Calcium 8.7 mg/dL (8.4-10.2); Carbon Dioxide 22 mmol/L (22-30); Chloride 104 mmol/L (98-107); Estimated CRCL calculation 105 ml/min; Estimated Glomerular Filt Rate > 60; Glucose 134 mg/dL (65-110); Lactate Dehydrogenase 159 U/L (120-246); Potassium 3.8 mmol/L (3.4-5.0); Sodium 137 mmol/L (137-145)
--- NOTE | 2023-11-06 12:42 | PM.IMPN ---
Progress Note: A&P Assessment and Plan (1) Thrombocytopenia: Code(s): D69.6 - Thrombocytopenia, unspecified Status: Acute Assessment and Plan: Patient presents with petechiae and found to have severe thrombocytopenia. He has a hx of ITP s/p splenectomy in remission x 10yrs Initial labs showed WBC 6.9, hemoglobin 13.9, platelet count <3K, INR 0.9, PT 13.0, PTT 27.8 Schistocytes none, nucleated RBCs normal, atypical lymphocytes present Recent Strep A infection on 06/15/2023 B12/Folate normal. Iron studies normal except TSat 16%. HIV/Viral Hepatitis Panel negative. CT Ch/A/P 11/04/23 - bilateral axillary LNE, RLL 11mm pulmonary nodule, hyperdense areas in both kidneys and small para-aortic LN. Previous lymphadenopathy biopsies done at [facility] were benign, Hematology consulted. Transfused platelets x2 on 11/03. Solu-Medrol started. Repeat plt count <3K so transfusion repeated Received 2 more units plt and count improved to 60K. IVIg started. 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 US of thyroid on 08/20/2023 showed sonographic findings that can be seen with Tiffany's thyroiditis or Graves' disease. TSH elevated at 6.8 but normal TT3/FT4 Monitor (3) History of ITP: Code(s): Z86.2 - Personal history of diseases of the blood and blood-forming organs and certain disorders involving the immune mechanism Status: Acute Assessment and Plan: As above. Patietn s/p splenectomy. He is UTD with vaccines Hematology following (4) Anxiety: Code(s): F41.9 - Anxiety disorder, unspecified Status: Inactive Assessment and Plan: Patietn with hx of panic attacks. He is requesting hydralazine. No direct evidence this can cause thrmbocytopenia so will resume Plan DVT Prophylaxis: Low risk/contraindicated Code Status: Full code Subjective Date/time seen: 11/06/23 12:42 Interval history: 33yo male with hx of Tiffany's and ITP s/p splenectomy here for petechiae. No issues overnight. Feeling anxious and has hx of panic attacks. No epistaxis, or blood in urine or stool. Exam Narrative: AF 97.4 121/57 77 18 99% ra Gen - NARD Chest - CTA bilaterally, nml RR CV - RRR S1/S2 Abd - Soft, NT/ND, Positive BS Ext - No pedal edema Neuro - Alert and appropriate Psych - Nml mood and affect Skin - Warm and dry. Objective Data Vital Signs Vital Signs: Vital Signs - 24 hr 11/05/23 14:40 11/05/23 14:55 11/05/23 14:00 Temperature 97.2 F L 97.2 F L 97.2 F L Pulse Rate 73 79 73 Respiratory Rate 18 18 18 Blood Pressure 126/58 L 126/60 126/58 L Pulse Oximetry 98 97 98 Oxygen Delivery 11/05/23 14:55 11/05/23 16:45 11/05/23 17:33 Temperature 97.4 F L 97.3 F L 97.1 F L Pulse Rate 78 88 67 Respiratory Rate 16 16 16 Blood Pressure 113/59 L 121/57 L 115/60 Pulse Oximetry 96 98 97 Oxygen Delivery 11/05/23 17:48 11/05/23 18:44 11/05/23 20:00 Temperature 97.3 F L 97.2 F L Pulse Rate 70 74 Respiratory Rate 16 18 Blood Pressure 109/65 125/62 Pulse Oximetry 97 97 Oxygen Delivery Room Air 11/05/23 21:33 11/06/23 05:12 11/05/23 20:10 Temperature 97.2 F L 98.9 F 97.8 F Pulse Rate 62 77 68 Respiratory Rate 16 18 18 Blood Pressure 113/60 121/57 L 113/60 Pulse Oximetry 96 99 100 Oxygen Delivery 11/06/23 08:07 Temperature 97.4 F L Pulse Rate Respiratory Rate Blood Pressure Pulse Oximetry Oxygen Delivery Intake/Output Intake/Output: Intake & Output 11/03/23 11/04/23 11/05/23 11/06/23 23:59 23:59 23:59 23:59 Intake Total 987 1954.2 1220.8 Balance 987 1954.2 1220.8 Meds/Results Medications: Active Medications Generic Name Dose Route Start Last Admin Trade Name Freq PRN Reason Stop Dose Admin Acetaminophen 650 mg 11/04/23
[2023-11-06] MEDS: hydrOXYzine HCL 25 MG TABLET PO (13:19)
[2023-11-06 14:55] VITALS: BP 112/60; PULSE 83; RESP 17; TEMP 36.1; O2SAT 98
[2023-11-06 20:28] VITALS: BP 119/67; PULSE 60; RESP 16; TEMP 36.2; O2SAT 99
[2023-11-06] MEDS: diphenhydrAMINE HCl INJ 50 MG/ML VIAL 25 MG IV PUSH (21:56)
[2023-11-07 05:22] VITALS: BP 110/54; PULSE 58; RESP 16; TEMP 36.5; O2SAT 97
[2023-11-07 05:44] LABS: Basophils Percent Auto 0.1 % (0.2-1.2); Hematocrit 35.3 % (42.0-52.0); Hemoglobin 11.7 g/dL (14.0-18.0); Immature Granulocyte Absolute 0.12 K/mm3 (0.00-0.031); Immature Granulocyte Percent A 0.8 % (0-0.5); Lymphocytes Absolute Auto 1.77 K/mm3 (0.9-3.2); Lymphocytes Percent Auto 12.1 % (18.3-44.2); Mean Corpuscular HGB Conc 33.1 g/dl (32-36); Mean Corpuscular Hemoglobin 30.5 pg (26-34); Mean Corpuscular Volume 92.2 fl (80-100); Mean Platelet Volume 10.7 fl (7.4-10.4); Monocytes Absolute Auto 0.5 K/mm3 (0.1-0.6); Monocytes Percent Auto 3.3 % (2.6-8.5); Neutrophils Absolute Auto 12.2 K/mm3 (1.3-6.7); Neutrophils Percent Auto 83.7 % (45.5-73.1); Platelet Count Result 163 k/mm3 (150-375); Red Blood Count 3.83 M/mm3 (4.6-6.20); Red Cell Distribution Width 13.6 % (11.5-14.5); White Blood Count 14.6 K/mm3 (4.5-10.0)
[2023-11-07] MEDS: methylPREDNISolone SOD SUCC 125 MG VIAL IV PUSH ×2 (09:18→20:41)
[2023-11-07 14:55] VITALS: BP 118/60; PULSE 73; RESP 20; TEMP 37; O2SAT 99
--- NOTE | 2023-11-07 15:58 | PM.IMPN ---
Progress Note: A&P Assessment and Plan (1) Thrombocytopenia: Code(s): D69.6 - Thrombocytopenia, unspecified Status: Acute Assessment and Plan: Patient presents with petechiae and found to have severe thrombocytopenia. He has a hx of ITP s/p splenectomy in remission x 10yrs Initial labs showed WBC 6.9, hemoglobin 13.9, platelet count <3K, INR 0.9, PT 13.0, PTT 27.8 No schistocytes. No nucleated RBCs. Atypical lymphocytes present. Recent Strep A infection on 06/15/2023 B12/Folate normal. Iron studies normal except TSat 16%. HIV/Viral Hepatitis Panel negative. CT Ch/A/P 11/04/23 - bilateral axillary LNE, RLL 11mm pulmonary nodule, hyperdense areas in both kidneys and small para-aortic LN. Previous lymphadenopathy biopsies done at [facility] were benign Hematology consulted. Transfused platelets x2 on 11/03. Solu-Medrol started. Repeat plt count <3K so transfusion repeated Received 2 more units plt and count improved to 60K. IVIg given. 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 US of thyroid on 08/20/2023 showed sonographic findings that can be seen with Tiffany's thyroiditis or Graves' disease. TSH elevated at 6.8 but normal TT3/FT4 Monitor (3) History of ITP: Code(s): Z86.2 - Personal history of diseases of the blood and blood-forming organs and certain disorders involving the immune mechanism Status: Acute Assessment and Plan: As above. Patient s/p splenectomy. He is UTD with vaccines Hematology following (4) Anxiety: Code(s): F41.9 - Anxiety disorder, unspecified Status: Inactive Assessment and Plan: Patient with hx of panic attacks. He is requesting hydralazine. No direct evidence this can cause thrombocytopenia so this was resumed Plan DVT Prophylaxis: Low risk/contraindicated Code Status: Full code Subjective Date/time seen: 11/07/23 15:58 Interval history: 33yo male with hx of Tiffany's and ITP s/p splenectomy here for petechiae. No complaints. Feels well. Exam Narrative: AF 98.6 118/60 73 20 99% ra Gen - NARD Chest - CTA bilaterally, nml RR CV - RRR S1/S2 Abd - Soft, NT/ND, Positive BS Ext - No pedal edema Neuro - Alert and appropriate Psych - Nml mood and affect Skin - Warm and dry. Objective Data Vital Signs Vital Signs: Vital Signs - 24 hr 11/06/23 20:28 11/06/23 21:30 11/07/23 05:22 Temperature 97.1 F L 97.7 F Pulse Rate 60 58 L Respiratory Rate 16 16 Blood Pressure 119/67 110/54 L Pulse Oximetry 99 97 Oxygen Delivery Room Air 11/07/23 14:55 Temperature 98.6 F Pulse Rate 73 Respiratory Rate 20 Blood Pressure 118/60 Pulse Oximetry 99 Oxygen Delivery Intake/Output Intake/Output: Intake & Output 11/04/23 11/05/23 11/06/23 11/07/23 23:59 23:59 23:59 23:59 Intake Total 987 1954.2 2490.8 740 Output Total 375 Balance 987 1954.2 2115.8 740 Meds/Results Medications: Active Medications Generic Name Dose Route Start Last Admin Trade Name Freq PRN Reason Stop Dose Admin Acetaminophen 650 mg 11/04/23 22:39 11/04/23 23:39 Acetaminophen 325 Mg Tablet PO 650 mg Q6H PRN Administration Mild Pain (1-3) or Fever Hydroxyzine HCl 25 mg 11/06/23 12:53 11/06/23 13:19 Hydroxyzine Hcl 25 Mg Tablet PO 25 mg TID PRN Administration anxiety Methylprednisolone Sodium Succinate 125 mg 11/04/23 10:55 11/07/23 09:18 Methylprednisolone Sod Succ 125 Mg Vial IV PUSH 125 mg Q12HR ROB Administration Radiology Results: ITS Impressions Chest/Abdomen/Pelvis CT 11/04/23 23:59 IMPRESSION: CHEST: 1. No acute cardiopulmonary pathology. 2. Bilateral axillary lymphadenopathy with lymph nodes posterior to the pectoralis muscles. 3. Nodule in
[2023-11-07 20:09] VITALS: BP 117/72; PULSE 70; RESP 16; TEMP 36.3; O2SAT 100
[2023-11-07] MEDS: hydrOXYzine HCL 25 MG TABLET PO (22:58)
[2023-11-08 05:13] VITALS: BP 126/64; PULSE 66; RESP 14; TEMP 36.8; O2SAT 97
[2023-11-08 05:25] LABS: Basophils Percent Auto 0.1 % (0.2-1.2); Hematocrit 35.9 % (42.0-52.0); Hemoglobin 12.2 g/dL (14.0-18.0); Immature Granulocyte Absolute 0.11 K/mm3 (0.00-0.031); Immature Granulocyte Percent A 0.8 % (0-0.5); Lymphocytes Percent Auto 15.5 % (18.3-44.2); Mean Corpuscular Hemoglobin 30.9 pg (26-34); Mean Corpuscular Volume 90.9 fl (80-100); Mean Platelet Volume 10.1 fl (7.4-10.4); Monocytes Absolute Auto 0.9 K/mm3 (0.1-0.6); Monocytes Percent Auto 6.2 % (2.6-8.5); Neutrophils Percent Auto 77.4 % (45.5-73.1); Platelet Count Result 212 k/mm3 (150-375); Red Blood Count 3.95 M/mm3 (4.6-6.20); Red Cell Distribution Width 13.7 % (11.5-14.5); White Blood Count 14.2 K/mm3 (4.5-10.0)
[2023-11-08] MEDS: methylPREDNISolone SOD SUCC 125 MG VIAL IV PUSH (08:49)
[2023-11-08] MEDS: hydrOXYzine HCL 25 MG TABLET PO (09:59)
--- NOTE | 2023-11-08 12:13 | PM.DS ---
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 Please see H&P for details Hospital Course: Patient presents with petechiae and found to have severe thrombocytopenia. He has a hx of ITP s/p splenectomy in remission x 10yrs. He is UTD with vaccines. Initial labs showed WBC 6.9, hemoglobin 13.9, platelet count <3K, INR 0.9, PT 13.0, PTT 27.8. No schistocytes. No nucleated RBCs. Atypical lymphocytes present. Strep A infection on 06/15/2023 but nothing recent. B12/Folate normal. Iron studies normal except TSat 16%. HIV/Viral Hepatitis Panel negative. CT Ch/A/P 11/04/23 - bilateral axillary LNE, RLL 11mm pulmonary nodule, hyperdense areas in both kidneys and small para-aortic LN. PET scan or repeat imaging in 3 months recommended. Previous lymphadenopathy biopsies done at [facility] were benign. Hematology was consulted. Patient was transfused platelets x 2 on 11/03. Solu-Medrol started. Repeat plt count <3K so transfusion repeated and he received 2 more units plt. Platelet count improved to 60K. IVIg given. Platelet count normalized. Patient has a hx of Tiffany's thyroiditis. US of thyroid on 08/20/23 showed sonographic findings that can be seen with Tiffany's thyroiditis or Graves' disease. TSH elevated at 6.8 but normal TT3/FT4. Hx of anxiety and panic attacks. Mood remained stable. He overall did well and was able to be discharged home on prednisone taper on 11/08/23. Status at Discharge Cognitive/behavioral status at discharge: stable Time Spent with Patient Time attestation: Total time spent providing and/or coordinating discharge services: 34 minutes Time spent: Greater than 30 minutes Exam Narrative: AF 98.3 126/64 66 14 97% ra Gen - NARD Chest - CTA bilaterally, nml RR CV - RRR S1/S2 Abd - Soft, NT/ND, Positive BS Ext - No pedal edema Neuro - Alert and appropriate Psych - Nml mood and affect Skin - Warm and dry. DS: Data Data Completed and Pending Labs on day of discharge: Labs from last 24 hours 11/08/23 05:16 WBC 14.2 H RBC 3.95 L Hgb 12.2 L Hct 35.9 L MCV 90.9 MCH 30.9 MCHC 34.0 RDW 13.7 Plt Count 212 MPV 10.1 Immature Gran % (Auto) 0.8 H Neut % (Auto) 77.4 H Lymph % (Auto) 15.5 L [place] % (Auto) 6.2 Eos % (Auto) 0.0 Baso % (Auto) 0.1 L Lymph # (Auto) 2.20 [place] # (Auto) 0.9 H Eos # (Auto) 0.0 Baso # (Auto) 0.0 Abs Immat Gran (auto) 0.11 H Absolute Neuts (auto) 11.0 H Absolute Nucleated RBC 0.000 Nucleated RBC % 0.0 Discharge Plan Discharge Attending physician on discharge: Harshil Mukherjee Consulting providers: Giovanny Banks Discharging Clinician: Harshil Mukherjee Anticipated Discharge Date/Time: 11/08/23 12:35 Patient Disposition: Home, Self-Care Activity: as tolerated Diet: regular Discharge Instructions: Please complete your steroid taper even if you are starting to feel well. Contact your doctor or call 911 and come to the Emergency Room if you have recurrent red rash or other worrisome symptoms. Avoid NSAIDs (ibuprofen, naproxen, Aleve). Tylenol is safe to take. You will be going home on Prednisone taper: -- Prednisone 20
[2023-11-08 14:00] VITALS: BP 130/65; PULSE 64; RESP 14; O2SAT 98
== END 2023-11-08 14:30 | disposition home or self-care (01) | DRG 661 ==
LOC: ANHED 10:35 → ANH2MED 11:22
PROVIDERS: Internal Medicine Hematology & Oncology; Student in an Organized Health Care Education/Training Program; Admitting Provider General Practice; Emergency Provider Physician Assistant; PCP Emergency Medicine; Visit Provider Internal Medicine
DX: D69.6 Thrombocytopenia, unspecified (principal); E06.3 Autoimmune thyroiditis; F41.9 Anxiety disorder, unspecified; F14.90 Cocaine use, unspecified, uncomplicated; R91.1 Solitary pulmonary nodule; R59.1 Generalized enlarged lymph nodes; Z90.81 Acquired absence of spleen; Z86.2 Personal history of diseases of the blood and blood-forming organs and certain disorders involving the immune mechanism; Z88.0 Allergy status to penicillin; Z90.49 Acquired absence of other specified parts of digestive tract
CPT/HCPCS: 36415; 36430; 71260; 74177; 80048; 80053; 80074; 82607; 82728; 82746; 83540; 83550; 83615; 84439; 84443; 84480; 85025; 85055; 85610; 85730; 86023; 86703; 86900; 86901; 96374; 99285; A9270; G0379; G0432; J1200; J1459; J2919; J7050; P9034; Q9967

== ENCOUNTER 2023-11-12 13:52 | Emergency (ER) | payer MEDICAID, SELFPAY ==
[2023-11-12 14:07] VITALS: BP 122/62; PULSE 88; RESP 18; TEMP 37.1; O2SAT 98
--- NOTE | 2023-11-12 14:16 | ED.GENADULT ---
HPI - General Adult General Chief complaint: Upper Respiratory Infection Stated complaint: Sore Throat Time Seen by Provider: 11/12/23 14:16 Source: patient, RN notes reviewed and old records reviewed Mode of arrival: ambulatory Limitations: no limitations History of Present Illness HPI narrative: 33-year-old male presents to the [facility] with complaints of a sore throat with white spots. Currently prednisone for ITP Onset (ago): day(s) (2) Treatments prior to arrival: none Related Data Home Medications Medication Instructions Recorded Confirmed prednisone 20 mg tablet 120 mg PO DAILY 11/12/23 11/12/23 Allergies Allergy/AdvReac Type Severity Reaction Status Date / Time red dye Allergy Intermediate Swelling Verified 11/12/23 13:55 of Lip/Tongue/Throat amoxicillin Allergy Mild Unknown Verified 11/12/23 13:55 Penicillins Allergy Mild Unknown Verified 11/12/23 13:55 Olives with Feta Allergy Swelling Uncoded 11/12/23 13:55 cheese-[employer] of the Eye Review of Systems Review of Systems: All systems reviewed & are unremarkable except as noted in HPI and below Constitutional: Constitutional: Reports no additional constitutional complaints Eyes: Eyes: Reports no additional eye complaints ENT: Reports as per HPI Cardiovascular: Cardiovascular: Reports no additional cardiovascular complaints, Denies chest pain and Denies dyspnea Respiratory: Respiratory: Reports no additional respiratory complaints, Denies chest congestion, Denies cough and Denies dyspnea Gastrointestinal: Gastrointestinal: Reports no additional gastrointestinal complaints, Denies abdominal pain, Denies nausea and Denies vomiting Musculoskeletal: Musculoskeletal: Reports no additional musculoskeletal complaints Integumentary/Breasts: Skin/Breast: Reports system reviewed and no additional complaints, except as docu Neurologic: Reports system reviewed and no additional complaints, except as documented Psychiatric: Psychiatric: Reports no additional psychiatric complaints Allergic/Immunologic: Allergic/Immunologic: Reports no additional allergic/immunologic complaints [facility] Past Medical History Medical History (Updated 11/12/23 @ 14:21 by Omaira Trivedi APRN) Anxiety Tiffany's disease History of ITP Psoriatic arthritis Surgical History Surgical History H/O splenectomy History of appendectomy Social History Social History Smoking status: Never smoker Smokeless tobacco user: other Alcohol intake: never Substance use type: marijuana and crack/cocaine Other substance usage details: cocaine over the weekend Last use: 10/31/23 Do You Feel Safe in your Home?: Yes Lack of Transportation: No Lack of Food: Never True Current Housing: I Have Housing Concerned About Future Housing: No Difficulty Paying Gas/Electric Bills: YES Difficulty Paying for Meds: YES Currently Unemployed: YES Education: High School Diploma/GED Difficulty w/ Childcare or Family Care: No Spiritual care concerns: No Comments At the time of my signature, I reviewed and agree with the nursing past medical, surgical, social, and family history. There is no relevant family history pertinent to the patient complaint. Exam Const: General: cooperative, healthy appearing, comfortable, no acute distress, well developed, alert and well nourished Nutritional Appearance: well nourished Orientation/consciousness: patient oriented x3 Limitations: no limitations HENMT: Head: normal to inspection Ears: hearing grossly normal bilaterally and external ears normal Face/Nose/Sinus: Normal external nose present, Normal nares present, Normal nasal mucous membranes and turbinates present, normal facial exam and face symmetric Face and sinus: normal facial exam and face symmetric Mouth: Yes lip normal and Yes Abnormal oral and palata
[2023-11-12 14:20] LABS: EDSTREPNEGPOS1 Negative (Negative)
== END 2023-11-12 14:26 | disposition home or self-care (01) ==
PROVIDERS: Emergency Provider Nurse Practitioner; PCP Emergency Medicine
DX: B37.0 Candidal stomatitis (principal); E06.3 Autoimmune thyroiditis; L40.50 Arthropathic psoriasis, unspecified; F14.90 Cocaine use, unspecified, uncomplicated
CPT/HCPCS: 87081; 87880; 99213; G0463

== ENCOUNTER 2023-11-17 12:48 | Emergency (ER) | payer MEDICAID, SELFPAY ==
--- NOTE | ~2023-11-17 | CT_ITS ---
EXAMINATION: CT pelvis wo con DATE: 11/17/2023 15:34 INDICATION: Bilateral hip pain post high-dose steroids TECHNIQUE: Computed tomography (CT) of the pelvis was performed without intravenous contrast. Automat ed exposure control and iterative reconstruction technique were employed. The dose-length product was 239.09 mGy-cm. COMPARISON: 10/25/2023 FINDINGS: Bone alignment is normal. No fracture or suspected osteonecrosis. Bone island at the right femoral he ad. Mild polyarticular osteoarthritis at the bilateral hips, sacral iliac joints and lower lumbar fac et joints. Bladder is normal. Postoperative changes at the tip the cecum likely related to prior appe ndectomy. Visualized bowels are otherwise unremarkable with no obstruction. No free fluid in the pelv is. No pathologically enlarged No pathologically enlarged pelvic or inguinal lymphadenopathy. lymphad enopathy. IMPRESSION: 1. Mild bilateral hip osteoarthritis. No osteonecrosis or acute osseous abnormality. Reviewed, dictated and finalized at location A. IMPRESSION: 1. Mild bilateral hip osteoarthritis. No osteonecrosis or acute osseous abnorma lity.
[2023-11-17 12:53] VITALS: BP 118/70; PULSE 92; RESP 24; TEMP 36.9; O2SAT 100
[2023-11-17 14:23] LABS: Basophils Percent Auto 0.2 % (0.2-1.2); Hematocrit 41.6 % (42.0-52.0); Hemoglobin 14.1 g/dL (14.0-18.0); Immature Granulocyte Absolute 0.25 K/mm3 (0.00-0.031); Immature Granulocyte Percent A 1.3 % (0-0.5); Lymphocytes Absolute Auto 1.94 K/mm3 (0.9-3.2); Lymphocytes Percent Auto 10.5 % (18.3-44.2); Mean Corpuscular HGB Conc 33.9 g/dl (32-36); Mean Corpuscular Hemoglobin 31.5 pg (26-34); Mean Corpuscular Volume 92.9 fl (80-100); Mean Platelet Volume 10.2 fl (7.4-10.4); Monocytes Absolute Auto 1.3 K/mm3 (0.1-0.6); Monocytes Percent Auto 6.8 % (2.6-8.5); Neutrophils Percent Auto 81.2 % (45.5-73.1); Platelet Count Result 176 k/mm3 (150-375); Red Blood Count 4.48 M/mm3 (4.6-6.20); Red Cell Distribution Width 14.3 % (11.5-14.5); White Blood Count 18.5 K/mm3 (4.5-10.0)
[2023-11-17 14:36] LABS: Alanine Aminotransferase 26 U/L (6-50); Albumin Level 4.5 g/dL (3.5-5.1); Alkaline Phosphatase 41 U/L (38-126); Anion Gap 10 mmol/L (4-12); Aspartate Amino Transferase 22 U/L (17-59); Bilirubin,Total 0.5 mg/dL (0.2-1.3); Blood Urea Nitrogen 18 mg/dL (9-20); Calcium 9.1 mg/dL (8.4-10.2); Carbon Dioxide 32 mmol/L (22-30); Chloride 92 mmol/L (98-107); Estimated CRCL calculation 117 ml/min; Estimated Glomerular Filt Rate > 60; Glucose 101 mg/dL (65-110); Potassium 3.8 mmol/L (3.4-5.0); Sodium 134 mmol/L (137-145)
--- NOTE | 2023-11-17 15:10 | ED.LOWEXIN ---
HPI - Extremity Injury (Lower) General Chief Complaint: Extremity Injury, Lower Stated Complaint: Bilateral hip pain Time Seen by Provider: 11/17/23 14:09 History of Present Illness HPI Narrative: 33-year-old male with a past medical history significant for Tiffany's and ITP status post splenectomy. He presently presents for bilateral hip pain worse over last few days. He states he has never had hip pain or complications from prednisone therapy in the past but was recently started on high-dose prednisone 125 mg daily and being titrated down. He was just discharged from the hospital 10 days prior where he received prednisone and IVIG therapy for thrombocytopenia. His platelets did rebound nicely. No new injuries or traumas. He did not fall or injure himself. He has been complaining of significant pain in his bilateral hips he feels as a dull ache. Limiting his mobility and ambulation on the household. Denies any systemic features such as fever, chills, chest pain, shortness a breath, abdominal pain, back pain, central back pain, GI or complaints. Was otherwise in his normal state of health. Related Data Home Medications Medication Instructions Recorded Confirmed prednisone 20 mg tablet 120 mg PO DAILY 11/12/23 11/12/23 Allergies Allergy/AdvReac Type Severity Reaction Status Date / Time red dye Allergy Intermediate Swelling Verified 11/17/23 13:26 of Lip/Tongue/Throat amoxicillin Allergy Mild Unknown Verified 11/17/23 13:26 Penicillins Allergy Mild Unknown Verified 11/17/23 13:26 Olives with Feta Allergy Swelling Uncoded 11/17/23 13:26 cheese-[employer] of the Eye Review of Systems Review of Systems: All systems reviewed & are unremarkable except as noted in HPI and below PMFSH Past Medical History Medical History (Updated 11/17/23 @ 16:36 by Ion Vann MD) Anxiety Tiffany's disease History of ITP Psoriatic arthritis Surgical History Surgical History H/O splenectomy History of appendectomy Social History Social History Smoking status: Never smoker Smokeless tobacco user: other Alcohol intake: never Substance use type: marijuana and crack/cocaine Other substance usage details: cocaine over the weekend Last use: 10/31/23 Do You Feel Safe in your Home?: Yes Lack of Transportation: No Lack of Food: Never True Current Housing: I Have Housing Concerned About Future Housing: No Difficulty Paying Gas/Electric Bills: YES Difficulty Paying for Meds: YES Currently Unemployed: YES Education: High School Diploma/GED Difficulty w/ Childcare or Family Care: No Spiritual care concerns: No Exam Narrative: GENERAL: [Well-appearing, well-nourished, and in no acute distress.] HEAD: [Normocephalic, atraumatic.] EYES: [PERRLA and EOMI.] ENT: Nares clear, no rhinorrhea or epistaxis. Mucous membranes moist. NECK: Supple. CHEST: [Clear to auscultation. No respiratory distress.] HEART: [Regular rate and rhythm]. No murmur heard. [Normal peripheral pulses.] ABDOMEN: [Soft, nondistended], [nontender], [No rigidity or guarding] EXTREMITIES: Tenderness to palpation over the bilateral hips, flexion and extension of the hip joint elicits pain but he has full range of motion passively and actively. Internal external rotation exacerbates the pain. Distally at the knee and ankle with full range of motion. 5/5 strength distally. 5/5 at the hip SKIN: Warm, dry, no rash. NEURO: [No focal deficits]. Alert and oriented [x3.] PSYCH: [Normal mood and affect.] Course Vital Signs Vital signs: Vital Signs Temperature 36.9 C 11/17/23 12:53 Pulse Rate 92 11/17/23 12:53 Respiratory Rate 24 H 11/17/23 12:53 Blood Pressure 118/70 11/17/23 12:53 Pulse Oximetry 100 11/17/23 12:53 Oxygen Delivery Room Air 11/17/23 12:53 Temperature 3
[2023-11-17] MEDS: MORPHINE SULFATE (*CRX) 4 MG/ML INJ IV PUSH (15:17)
[2023-11-17 17:05] VITALS: BP 136/74; PULSE 80; RESP 16; TEMP 36.6; O2SAT 100
== END 2023-11-17 17:07 | disposition home or self-care (01) ==
PROVIDERS: Physician Assistant; Emergency Provider Student in an Organized Health Care Education/Training Program; PCP Emergency Medicine
DX: M25.552 Pain in left hip (principal); M25.551 Pain in right hip; M19.90 Unspecified osteoarthritis, unspecified site; F41.9 Anxiety disorder, unspecified; E06.3 Autoimmune thyroiditis; L40.50 Arthropathic psoriasis, unspecified
CPT/HCPCS: 36415; 72192; 80053; 85025; 96374; 99284; J2270

== ENCOUNTER 2023-11-23 10:52 | Outpatient (CLI) | payer MEDICAID, SELFPAY ==
[2023-11-23 11:06] LABS: Hematocrit 40.9 % (42.0-52.0); Hemoglobin 13.6 g/dL (14.0-18.0); Immature Platelet Fraction Pct 15.3 % (0.9-11.2); Mean Corpuscular HGB Conc 33.3 g/dl (32-36); Mean Corpuscular Volume 93.2 fl (80-100); Red Blood Count 4.39 M/mm3 (4.6-6.20); Red Cell Distribution Width 15.2 % (11.5-14.5); White Blood Count 14.6 K/mm3 (4.5-10.0)
[2023-11-23 11:07] LABS: Platelet Count Result 7 k/mm3 (150-375)
== END 2023-11-23 10:53 | disposition home or self-care (01) ==
PROVIDERS: PCP Emergency Medicine; Visit Provider Internal Medicine Hematology & Oncology
DX: D64.9 Anemia, unspecified (principal)
CPT/HCPCS: 36415; 85027; 85055

== ENCOUNTER 2023-11-23 13:29 | Outpatient (RCR) | payer MEDICAID, SELFPAY ==
[2023-11-23 13:59] LABS: Hemoglobin 14.4 g/dL (14.0-18.0); Immature Platelet Fraction Pct 18.5 % (0.9-11.2); Mean Corpuscular HGB Conc 32.7 g/dl (32-36); Mean Corpuscular Hemoglobin 31.3 pg (26-34); Mean Corpuscular Volume 95.7 fl (80-100); Red Cell Distribution Width 15.4 % (11.5-14.5); White Blood Count 14.5 K/mm3 (4.5-10.0)
[2023-11-23] MEDS: HYDROcodone/acetaminophen (*CRX) 5-325 MG TABLET 1 TAB PO (14:05)
[2023-11-23] MEDS: diphenhydrAMINE HCl CAP 25 MG CAPSULE PO (14:30)
[2023-11-23] MEDS: SODIUM CHLORIDE 0.9% IV 250 ML 30 ML IV CONT (14:30)
[2023-11-23 14:32] LABS: Platelet Count Result 8 k/mm3 (150-375)
[2023-11-23 14:46] VITALS: BP 122/68; PULSE 89; RESP 16; TEMP 36.7; O2SAT 100
[2023-11-23 15:01] VITALS: BP 119/73; PULSE 91; RESP 16; TEMP 36.8; O2SAT 99
[2023-11-23 15:15] VITALS: BP 108/73; PULSE 103; RESP 18; TEMP 36.4; O2SAT 100
== END 2024-02-21 23:59 | disposition home or self-care (01) ==
LOC: ANHCPCTRAN 13:29
PROVIDERS: PCP Emergency Medicine; Visit Provider Internal Medicine Hematology & Oncology
DX: D64.9 Anemia, unspecified (principal)
CPT/HCPCS: 36415; 36430; 85027; 85055; 86900; 86901; A9270; J7050; P9034

== ENCOUNTER 2023-11-30 12:47 | Outpatient (CLI) | payer MEDICAID, SELFPAY ==
[2023-11-30 12:58] LABS: Basophils Percent Auto 0.2 % (0.2-1.2); Eosinophils Absolute Auto 0.2 K/mm3 (0-0.3); Eosinophils Percent Auto 1.6 % (0-4.4); Hematocrit 38.6 % (42.0-52.0); Hemoglobin 12.7 g/dL (14.0-18.0); Immature Granulocyte Absolute 0.12 K/mm3 (0.00-0.031); Immature Granulocyte Percent A 0.9 % (0-0.5); Lymphocytes Percent Auto 12.5 % (18.3-44.2); Mean Corpuscular HGB Conc 32.9 g/dl (32-36); Mean Corpuscular Hemoglobin 31.4 pg (26-34); Mean Corpuscular Volume 95.5 fl (80-100); Mean Platelet Volume 9.8 fl (7.4-10.4); Monocytes Absolute Auto 0.8 K/mm3 (0.1-0.6); Monocytes Percent Auto 6.5 % (2.6-8.5); Neutrophils Percent Auto 78.3 % (45.5-73.1); Platelet Count Result 182 k/mm3 (150-375); Red Blood Count 4.04 M/mm3 (4.6-6.20); Red Cell Distribution Width 15.5 % (11.5-14.5); White Blood Count 12.8 K/mm3 (4.5-10.0)
== END 2023-11-30 12:48 | disposition home or self-care (01) ==
LOC: ANHLAB 12:48
PROVIDERS: Visit Provider Internal Medicine Hematology & Oncology
DX: D64.9 Anemia, unspecified (principal)
CPT/HCPCS: 36415; 85025

== ENCOUNTER 2023-12-02 15:41 | Emergency (ER) | payer MEDICAID, SELFPAY ==
[2023-12-02] VITALS (12 sets, daily range): BP systolic 118–148; BP diastolic 74–102; PULSE 64–82; RESP 14–18; TEMP 36.5–36.6; O2SAT 95–100
--- NOTE | ~2023-12-02 | CT_ITS ---
History: Bilateral lower extremity paresthesias and subjective slurred speech PROCEDURE: CT thoracic and lumbar spine with intravenous contrast COMPARISON: None TECHNIQUE: Multiple contiguous axial images of the thoracic and lumbar spines were performed following the admin istration of intravenous contrast. DLP: 952.8 mGy-cm FINDINGS: Trace dextroscoliotic curvature of the upper thoracic spine. Preservation of the intervertebral disc spaces. No acute fracture is appreciated. No abnormal contrast enhancement is noted. Trace facet arthropathy is present, scattered throughout the thoracic spine. Multiple Schmorl's nodes scattered throughout the thoracic spine. No evidence of intrathecal or extrathecal compression is appreciated. Preservation of the normal lordotic curvature of the lumbar spine. Preservation of the intervertebral disc spaces. No acute compression fractures. Hemangioma within the vertebral body of L3. Multiple Schmorl's nodes scattered throughout the lumbar spine. Trace facet arthropathy. No evidence of intrathecal or extrathecal compression is appreciated. The sacrum is unremarkable, as are the bilateral sacroiliac joints. IMPRESSION: Trace degenerative disease, as detailed above. Otherwise unremarkable contrast enhanced CT examination of the thoracic and lumbar spines. Reviewed, dictated and finalized at location A. IMPRESSION: Trace degenerative disease, as detailed above. Otherwise unremarkable contrast enhanced CT examination of the thoracic and lum bar spines.
--- NOTE | ~2023-12-02 | CT_ITS ---
History: Bilateral lower extremity paresthesias and subjective slurred speech PROCEDURE: CT cervical spine without intravenous contrast. COMPARISON: No prior imaging has been performed of the cervical spine for comparison TECHNIQUE: Multiple contiguous axial images of the cervical spine were performed following the administration of intravenous contrast. FINDINGS: Straightening and slight reversal of the normal curvature of the cervical spine is identified, possib ly muscular in origin. No discrete fluid collections are identified. No abnormal contrast enhancement is identified within the canal to suggest an infectious process. The intervertebral disc spaces are unremarkable without adjacent fragmented bone or soft tissue abnor mality. Impression: No discrete soft tissue abnormality is appreciated on this CT examination of the cervical spine. Abnormal curvature of the cervical spine, possibly muscular in origin. No acute fracture. Reviewed, dictated and finalized at location A. Impression: No discrete soft tissue abnormality is appreciated on this CT examination of th e cervical spine. Abnormal curvature of the cervical spine, possibly muscular in origin. No acute fracture.
--- NOTE | ~2023-12-02 | XR_ITS ---
EXAMINATION: XR knee LT min 4V DATE: 12/02/2023 16:00 INDICATION: Left knee pain. TECHNIQUE: 4 views of left knee were obtained. COMPARISON: None. FINDINGS: Alignment is normal. No fracture. Joint spaces are normal. No knee joint effusion. IMPRESSION: 1. Normal left knee. Reviewed, dictated and finalized at location A. IMPRESSION: 1. Normal left knee.
--- NOTE | ~2023-12-02 | CT_ITS ---
Clinical indication:Left hip pain COMPARISON:11/17/2023 TECHNIQUE: Multiple contiguous axial images of the pelvis were performed without the administration o f intravenous contrast. FINDINGS: No acute or subacute fractures are appreciated. Multiple bone islands are redemonstrated. Superior lateral femoral acetabular joint space narrowing is redemonstrated system with osteoarthriti s. No cross-sectional imaging evidence to suggest osteonecrosis is present. Within the abdomen: The appendix is absent. Fecal stasis within the cecum. The bladder is minimally distended, and otherwise unremarkable. No morphologically suspicious or pathologically enlarged lymph nodes are visualized. Scattered retroperitoneal lymph nodes are noted, a nonspecific finding. The prostate gland is not enlarged. IMPRESSION: No acute or subacute fracture. No findings to suggest osteonecrosis. Redemonstration of mild osteoarthritis. Reviewed, dictated and finalized at location A.
--- NOTE | 2023-12-02 15:52 | ED.RECABL ---
HPI - Recheck/Abnormal Lab/Rx General Chief Complaint: Recheck/Abnormal Lab/Rx <SUDHA Dominguez Last Filed: 12/02/23 16:11> Stated Complaint: pain all over, hx ITP <SUDHA Dominguez Last Filed: 12/02/23 16:11> Time Seen by Provider: 12/02/23 15:45 <SUDHA Dominguez Last Filed: 12/02/23 16:11> Focused HPI: Patient is a 33-year-old male, with PMH of ITP status post splenectomy in 2013, who presents to the ED with report of left hip and left knee pain. Patient reports pain has been ongoing for the last 2 days, but became worse today. He sees Dr. Banks for his ITP and is waiting for insurance to approve a new medication. He states he recently diagnosed with an acute osteoarthritis in his hips which was thought to be related to his chronic steroid therapy. Currently on 120mg of prednisone daily. States most recent blood draw showed platelets 189K. Was seen for similar symptoms recently in the ED here. Was prescribed oxycodone for home. States he took the last pill today for the pain which did improve his pain. Denies numbness, recent bleeding. Denies new injury or fall. GENERAL: Mildly uncomfortable and anxious-appearing, well-nourished, and in no acute distress. HEAD: Normocephalic, atraumatic. CHEST: Clear to auscultation. ?No respiratory distress. HEART: Regular rate and rhythm.? NEURO: ?Alert and oriented x3. Patient screened in triage and initial orders placed.? ?Additional care and disposition to be based upon?diagnostic testing and treatment. <SUDHA Dominguez Last Filed: 12/02/23 16:11> Source: patient and old records reviewed <SUDHA Dominguez Last Filed: 12/02/23 16:11> Mode of arrival: ambulatory <SUDHA Dominguez Last Filed: 12/02/23 16:11> Limitations: no limitations <SUDHA Dominguez Last Filed: 12/02/23 16:11> Related Data Home Medications: Home Medications Medication Instructions Recorded Confirmed prednisone 20 mg tablet 120 mg PO DAILY 11/12/23 11/12/23 <Lynnette Navarrete PA-C - Last Filed: 12/02/23 16:11> Allergies/Adverse Reactions: Allergies Allergy/AdvReac Type Severity Reaction Status Date / Time red dye Allergy Intermediate Swelling Verified 11/23/23 13:48 of Lip/Tongue/Throat amoxicillin Allergy Mild Unknown Verified 11/23/23 13:48 Penicillins Allergy Mild Unknown Verified 11/23/23 13:48 Olives with Feta Allergy Swelling Uncoded 11/23/23 13:48 cheese-[employer] Eye <Lynnette Navarrete PA-C - Last Filed: 12/02/23 16:11> Review of Systems Review of Systems: All systems as dictated in HPI <Marino Toussaint PA-C - Last Filed: 12/02/23 21:09> [facility] Past Medical History Medical History: Medical History (Updated 12/02/23 @ 21:01 by Marino Toussaint PA-C) Anxiety Tiffany's disease History of ITP Psoriatic arthritis <Lynnette Navarrete PA-C - Last Filed: 12/02/23 16:11> Surgical History Surgical History: Surgical History H/O splenectomy History of appendectomy <Lynnette Navarrete PA-C - Last Filed: 12/02/23 16:11> Social History Social History: Social History Smoking status: Never smoker Smokeless tobacco user: other Alcohol intake: never Substance use type: marijuana and crack/cocaine Other substance usage details: cocaine over the weekend Last use: 10/31/23 Do You Feel Safe in your Home?: Yes Lack of Transportation: No Lack of Food: Never True Current Housing: I Have Housing Concerned About Future Housing: No Difficulty Paying Gas/Electric Bills: YES Difficulty Paying for Meds: YES Currently Unemployed: YES Education: High School Diploma/GED Difficulty w/ Childcare or Family Care: No Spiritual care concerns: No <VALENTINA DominguezC - Last File
[2023-12-02 17:53] LABS: Basophils Percent Auto 0.1 % (0.2-1.2); Hematocrit 39.9 % (42.0-52.0); Hemoglobin 13.3 g/dL (14.0-18.0); Immature Granulocyte Absolute 0.09 K/mm3 (0.00-0.031); Immature Granulocyte Percent A 0.8 % (0-0.5); Lymphocytes Absolute Auto 1.04 K/mm3 (0.9-3.2); Lymphocytes Percent Auto 9.2 % (18.3-44.2); Mean Corpuscular HGB Conc 33.3 g/dl (32-36); Mean Corpuscular Hemoglobin 31.7 pg (26-34); Mean Corpuscular Volume 95.2 fl (80-100); Mean Platelet Volume 9.4 fl (7.4-10.4); Monocytes Absolute Auto 0.5 K/mm3 (0.1-0.6); Neutrophils Absolute Auto 9.7 K/mm3 (1.3-6.7); Neutrophils Percent Auto 85.9 % (45.5-73.1); Platelet Count Result 215 k/mm3 (150-375); Red Blood Count 4.19 M/mm3 (4.6-6.20); Red Cell Distribution Width 15.7 % (11.5-14.5); White Blood Count 11.3 K/mm3 (4.5-10.0)
[2023-12-02 18:02] LABS: Alanine Aminotransferase 43 U/L (6-50); Albumin Level 4.4 g/dL (3.5-5.1); Alkaline Phosphatase 40 U/L (38-126); Anion Gap 6 mmol/L (4-12); Aspartate Amino Transferase 29 U/L (17-59); Bilirubin,Total 0.3 mg/dL (0.2-1.3); Blood Urea Nitrogen 15 mg/dL (9-20); Calcium 9.4 mg/dL (8.4-10.2); Carbon Dioxide 28 mmol/L (22-30); Chloride 103 mmol/L (98-107); Estimated CRCL calculation 117 ml/min; Estimated Glomerular Filt Rate > 60; Glucose 115 mg/dL (65-110); Potassium 4.4 mmol/L (3.4-5.0); Sodium 137 mmol/L (137-145)
[2023-12-02 18:04] LABS: INR 0.8; Prothrombin Time 11.6 Seconds (11.1-14.7)
[2023-12-02 18:05] LABS: Partial Thromboplastin Time 22.1 Seconds (22.3-36.8)
[2023-12-02 18:08] LABS: Add Urine Microscopic? YES; Appearance Urine Cloudy (Clear); Bacteria Urine None Seen /hpf; Bilirubin Urine Negative (Negative); Blood Urine Negative (Negative); Color Urine Yellow (Yellow); Glucose Urine UA Negative (Negative); Ketones Urine Negative (Negative); Leukocyte Esterase Ur Negative LEU/UL (Negative); Nitrate Urine Negative (Negative); Non Pathogenic Casts 0-2; Protein Urine Negative (Negative); RBC Urine 0-2 /hpf (0-2); Squamous Epithelial Cell Urine None Seen /hpf (Few); Urobilinogen Urine 0.2 mg/dL (<2.0); WBC Urine 0-5 /hpf (0-3)
[2023-12-02 18:19] LABS: Amphetamine Screen Urine Negative (Negative); Barbiturate Screen Urine Negative (Negative); Benzodiazepines Screen Urine Negative (Negative); Cannabinoid Screen Urine Positive (Negative); Cocaine Screen Urine Negative (Negative); Methadone Screen Urine Negative (Negative); Opiate Screen Urine Positive (Negative); Phencyclidine Screen Urine Negative (Negative)
[2023-12-02] MEDS: MORPHINE SULFATE (*CRX) 4 MG/ML INJ IV PUSH (19:04)
[2023-12-02] MEDS: ONDANSETRON INJ 4 MG/2 ML VIAL IV PUSH (19:04)
[2023-12-02 19:32] LABS: Creatine Kinase 63 U/L (55-170)
== END 2023-12-02 21:15 | disposition home or self-care (01) ==
PROVIDERS: Physician Assistant; Emergency Provider Physician Assistant
DX: M54.10 Radiculopathy, site unspecified (principal); R20.2 Paresthesia of skin; M16.0 Bilateral primary osteoarthritis of hip; D69.3 Immune thrombocytopenic purpura; E06.3 Autoimmune thyroiditis; L40.50 Arthropathic psoriasis, unspecified; Z90.81 Acquired absence of spleen; Z79.52 Long term (current) use of systemic steroids
CPT/HCPCS: 36415; 72126; 72129; 72132; 72192; 73564; 80053; 80307; 81001; 82550; 85025; 85610; 85730; 96374; 96375; 99284; J2270; J2405; Q9967

== ENCOUNTER 2023-12-07 10:09 | Outpatient (CLI) | payer MEDICAID, SELFPAY ==
[2023-12-07 10:21] LABS: Hematocrit 39.4 % (42.0-52.0); Mean Corpuscular Hemoglobin 31.3 pg (26-34); Mean Corpuscular Volume 94.7 fl (80-100); Mean Platelet Volume 8.7 fl (7.4-10.4); Platelet Count Result 286 k/mm3 (150-375); Red Blood Count 4.16 M/mm3 (4.6-6.20); Red Cell Distribution Width 15.1 % (11.5-14.5); White Blood Count 12.5 K/mm3 (4.5-10.0)
== END 2023-12-07 10:10 | disposition home or self-care (01) ==
PROVIDERS: Visit Provider Internal Medicine Hematology & Oncology
DX: D64.9 Anemia, unspecified (principal)
CPT/HCPCS: 36415; 85027

== ENCOUNTER 2023-12-16 10:53 | Outpatient (CLI) | payer MEDICAID, SELFPAY ==
[2023-12-16 11:25] LABS: Hematocrit 40.3 % (42.0-52.0); Hemoglobin 13.1 g/dL (14.0-18.0); Mean Corpuscular HGB Conc 32.5 g/dl (32-36); Mean Corpuscular Hemoglobin 31.2 pg (26-34); Platelet Count Result 292 k/mm3 (150-375); Red Cell Distribution Width 14.9 % (11.5-14.5); White Blood Count 13.7 K/mm3 (4.5-10.0)
== END 2023-12-16 10:54 | disposition home or self-care (01) ==
LOC: ANHLAB 10:54
PROVIDERS: Visit Provider Internal Medicine Hematology & Oncology
DX: D64.9 Anemia, unspecified (principal)
CPT/HCPCS: 36415; 85027

== ENCOUNTER 2023-12-23 11:12 | Outpatient (CLI) | payer MEDICAID, SELFPAY ==
[2023-12-23 11:23] LABS: Basophils Absolute Auto 0.1 K/mm3 (0.0-0.1); Basophils Percent Auto 1.2 % (0.2-1.2); Eosinophils Absolute Auto 0.3 K/mm3 (0-0.3); Eosinophils Percent Auto 2.4 % (0-4.4); Hemoglobin 12.9 g/dL (14.0-18.0); Immature Granulocyte Absolute 0.06 K/mm3 (0.00-0.031); Immature Granulocyte Percent A 0.6 % (0-0.5); Lymphocytes Absolute Auto 4.34 K/mm3 (0.9-3.2); Lymphocytes Percent Auto 40.1 % (18.3-44.2); Mean Corpuscular HGB Conc 33.1 g/dl (32-36); Mean Corpuscular Hemoglobin 31.3 pg (26-34); Mean Corpuscular Volume 94.7 fl (80-100); Mean Platelet Volume 9.1 fl (7.4-10.4); Neutrophils Absolute Auto 5.1 K/mm3 (1.3-6.7); Neutrophils Percent Auto 46.7 % (45.5-73.1); Platelet Count Result 307 k/mm3 (150-375); Red Blood Count 4.12 M/mm3 (4.6-6.20); Red Cell Distribution Width 14.4 % (11.5-14.5); White Blood Count 10.8 K/mm3 (4.5-10.0)
== END 2023-12-23 11:13 | disposition home or self-care (01) ==
LOC: ANHLAB 11:13
PROVIDERS: Visit Provider Internal Medicine Hematology & Oncology
DX: D64.9 Anemia, unspecified (principal)
CPT/HCPCS: 36415; 85025

== ENCOUNTER 2024-02-23 17:49 | Emergency (ER) | payer OTHER, SELFPAY ==
--- NOTE | 2024-02-23 17:51 | ED_ITS ---
HPI - Allergic Reaction General Chief complaint: Allergic Reaction <Alexandria Andrade PA-C - Last Filed: 02/23/24 17:53> Stated complaint: allergic reaction <Alexandria Andrade PA-C - Last Filed: 02/23/24 17:53> Time Seen by Provider: 02/23/24 18:31 <Alexandria Andrade PA-C - Last Filed: 02/23/24 17:53> Focused HPI: 33-year-old male presents to the emergency department with concerns for an allergic reaction. Patient states approximately 30 minutes prior to arrival he began having sudden onset sinus pressure and drainage, tongue swelling and swelling to the roof of his mouth. States this normally happens when he has an allergic reaction. He denies new exposures, new medications or foods. GENERAL: Well-appearing, well-nourished, and in no acute distress. HEAD: Normocephalic, atraumatic. ENT: No lip, tongue or pharyngeal swelling. No airway compromise CHEST: Clear to auscultation. ?No respiratory distress. HEART: Regular rate and rhythm.? NEURO: ?Alert and oriented x3. Patient screened in triage and initial orders placed.? ?Additional care and disposition to be based upon?diagnostic testing and treatment. <Alexandria Andrade PA-C - Last Filed: 02/23/24 17:53> History of Present Illness HPI narrative: Patient is not reporting tongue swelling on my evaluation. He does have sinus congestion. He has received Benadryl and dexamethasone and famotidine. He has a red dye allergy but has not ingested anything today only was exposed to the odors of food. He has not seen an police superintendent. He has had cough and congestion for 2 days. <Jamie Ocampo MD - Last Filed: 02/23/24 20:53> Related Data Home medications: Home Medications ?Medication ?Instructions ?Recorded ?Confirmed ?Last Taken ?Type Adderall 15 mg PO DAILY 01/01/24 01/27/24 Unknown History <Alexandria Andrade PA-C - Last Filed: 02/23/24 17:53> Allergies/adverse reactions: Allergies Allergy/AdvReac Type Severity Reaction Status Date / Time red dye Allergy Intermediate Swelling Verified 01/27/24 11:56 of Lip/Tongue/Throat amoxicillin Allergy Mild Unknown Verified 01/27/24 11:56 Penicillins Allergy Mild Unknown Verified 01/27/24 11:56 Olives with Feta Allergy Swelling Uncoded 01/27/24 11:56 cheese-[employer] of the Eye <Alexandria Andrade PA-C - Last Filed: 02/23/24 17:53> Review of Systems Review of Systems: All systems reviewed & are unremarkable except as noted in HPI and below <Jamie Ocampo MD - Last Filed: 02/23/24 20:53> Constitutional: Constitutional: Reports no additional constitutional complaints <Jamie Ocampo MD - Last Filed: 02/23/24 20:53> ENT: Reports nasal congestion and Reports sore throat <Jamie Ocampo MD - Last Filed: 02/23/24 20:53> Cardiovascular: Cardiovascular: Reports no additional cardiovascular complaints <Jamie Ocampo MD - Last Filed: 02/23/24 20:53> Respiratory: Respiratory: Reports no additional respiratory complaints <Jamie Ocampo MD - Last Filed: 02/23/24 20:53> Gastrointestinal: Gastrointestinal: Reports no additional gastrointestinal complaints <Jamie Ocampo MD - Last Filed: 02/23/24 20:53> [facility] Past Medical History Medical History: Medical History (Updated 02/23/24 @ 20:52 by Jamie Ocampo MD) Psoriatic arthritis Tiffany's disease Anxiety History of ITP <Alexandria Andrade PA-C - Last Filed: 02/23/24 17:53> Surgical History Surgical History: Surgical History H/O splenectomy History of appendectomy <Alexandria Andrade PA-C - Last Filed: 02/23/24 17:53> Social History Social History: Social History Smoking status: Former smoker Tobacco type: cigarettes and e-cigarettes/vaping Smokeless tobacco user: other Second hand tobacco smoke exposure: No Smoking end date: 12/21/22 Alcohol intake: never Substance use type: marijuana and crack/cocaine Other substance usage details: cocaine over the weekend Last use: 10/31/23 Do You Feel Safe in your Home?: Yes Lack of Transportation: No Lack of Food: Never True Current Housing: I Have Housing Concerned About Future Housing: No Difficulty Paying Gas/Electric Bills: YES Difficulty Paying for Meds: YES Currently Unemployed: YES Education: High School Diploma/GED Difficulty w/ Childcare or Family Care: No Spiritual care concerns: No <Alexandria Andrade PA-C - Last Filed: 02/23/24 17:53> Exam Narrative: GENERAL: Well-appearing, well-nourished, and in no acute distress. HEAD: Normocephalic, atraumatic. EYES: PERRL and EOMI. ENT: Mucous membranes moist. Nares clear, no rhinorrhea or epistaxis. NECK: Supple. CHEST: Clear to auscultation. No respiratory distress. HEART: Regular rate and rhythm. Normal peripheral pulses. EXTREMITIES: Normal range of motion. No edema. NEURO: Alert and oriented x3. PSYCH: Normal mood and affect. <Jamie Ocampo MD - Last Filed: 02/23/24 20:53> Course Course Emergency Course: Congestion improved. Flu swabs negative. No angioedema. Discharge. <Jamie Ocampo MD - Last Filed: 02/23/24 20:53> Vital Signs Vital signs: Vital Signs Temperature 97.6 F 02/23/24 17:52 Pulse Rate 77 02/23/24 17:52 Respiratory Rate 16 02/23/24 17:52 Blood Pressure 129/69 02/23/24 17:52 Pulse Oximetry 98 02/23/24 17:52 Oxygen Delivery Room Air 02/23/24 17:52 Temperature 97.6 F 02/23/24 17:52 Pulse Rate 61 02/23/24 19:30 Respiratory Rate 16 02/23/24 19:30 Blood Pressure 129/69 02/23/24 17:52 Pulse Oximetry 97 02/23/24 19:30 Oxygen Delivery Room Air 02/23/24 18:00 <Alexandria Andrade PA-C - Last Filed: 02/23/24 17:53> Vital Signs Temperature 97.6 F 02/23/24 17:52 Pulse Rate 77 02/23/24 17:52 Respiratory Rate 16 02/23/24 17:52 Blood Pressure 129/69 02/23/24 17:52 Pulse Oximetry 98 02/23/24 17:52 Oxygen Delivery Room Air 02/23/24 17:52 Temperature 97.6 F 02/23/24 17:52 Pulse Rate 61 02/23/24 19:30 Respiratory Rate 16 02/23/24 19:30 Blood Pressure 129/69 02/23/24 17:52 Pulse Oximetry 97 02/23/24 19:30 Oxygen Delivery Room Air 02/23/24 18:00 <Jamie Ocampo MD - Last Filed: 02/23/24 20:53> MDM - Allergic Reaction Lab Data Labs: Lab Results 02/23/24 Range/Units 18:56 Influenza A (RT-PCR) Negative (Negative) Influenza B (RT-PCR) Negative (Negative) RSV (RT-PCR) Negative (Negative) SARS-CoV-2 RNA (RT-PCR) Negative (Negative) <Alexandria Andrade PA-C - Last Filed: 02/23/24 17:53> Lab Results 02/23/24 Range/Units 18:56 Influenza A (RT-PCR) Negative (Negative) Influenza B (RT-PCR) Negative (Negative) RSV (RT-PCR) Negative (Negative) SARS-CoV-2 RNA (RT-PCR) Negative (Negative) <Jamie Ocampo MD - Last Filed: 02/23/24 20:53> Discharge Plan Discharge Clinical Impression: Congested nose <Alexandria Andrade PA-C - Last Filed: 02/23/24 17:53> Patient Disposition: Home, Self-Care <Alexandria Andrade PA-C - Last Filed: 02/23/24 17:53> Condition: Stable <Alexandria Andrade PA-C - Last Filed: 02/23/24 17:53> Instructions: Cold Symptoms (ED) <Alexandria Andrade PA-C - Last Filed: 02/23/24 17:53> Additional Instructions: As discussed you have a viral illness. Unfortunately there are no specific medications we can give you to make the illness end faster. Antibiotics do not work for viral ill nesses. However, you can take Acetaminophen or Ibuprofen to help with fevers and pain. Stay well hydrated and rested. Return to the emergency department if your fevers and chills continue to worse after 5 days, if you develop worsening cough with thick sputum, or are unable to stay hydrated. Contact your primary care provider in the next few days for a re-evaluation and to make sure your symptoms are improving. <Alexandria Andrade PA-C - Last Filed: 02/23/24 17:53> Patient Language: Cymro <Alexandria Andrade PA-C - Last Filed: 02/23/24 17:53> Prescriptions: New fluticasone propionate [24 Hour Allergy Relief] 50 mcg/actuation spray,suspension 1 spray intranasal BID Qty: 16 0RF Rx Instructions: administer into each nostril No Action Adderall 15 mg tablet 15 mg PO DAILY <Alexandria Andrade PA-C - Last Filed: 02/23/24 17:53> Follow-up/Referrals: UNKNOWN,DOCTOR [Non-Staff] - 1 Week <Alexandria Andrade PA-C - Last Filed: 02/23/24 17:53>
[2024-02-23 17:52] VITALS: BP 129/69; PULSE 77; RESP 16; TEMP 36.4; O2SAT 98
[2024-02-23] MEDS: dexAMETHasone SOD PHOS INJ 10 MG/ML 1 ML VIAL IV PUSH (17:58)
[2024-02-23] MEDS: diphenhydrAMINE HCl INJ 50 MG/ML VIAL 25 MG IV PUSH (18:00)
[2024-02-23] MEDS: FAMOTIDINE 20 MG/2 ML VIAL IV PUSH (18:01)
[2024-02-23 19:30] VITALS: PULSE 61; RESP 16; O2SAT 97
[2024-02-23 19:39] LABS: Influenza A QL RT-PCR Negative (Negative); Influenza B QL RT-PCR Negative (Negative); RSV RNA, RT-PCR Negative (Negative); SARS-CoV-2 RNA PCR Negative (Negative)
[2024-02-23 21:22] VITALS: BP 120/73; PULSE 62; RESP 16; O2SAT 98
== END 2024-02-23 21:27 | disposition home or self-care (01) ==
PROVIDERS: Emergency Provider Emergency Medicine; PCP Emergency Medicine
DX: R09.81 Nasal congestion (principal); Z87.891 Personal history of nicotine dependence; Z20.822 Contact with and (suspected) exposure to COVID-19
CPT/HCPCS: 87637; 96374; 96375; 99284; J1100; J1200

== ENCOUNTER 2024-07-19 13:25 | Emergency (ER) | payer SELFPAY ==
--- OUTSIDE RECORDS SUMMARY | 2024-07-19 13:28 | XMS_ITS | Clinical Summary ---
Author Organization [facility] [place] [address] [place] [address] Care Team Providers Care Children Counselor Name Role Phone Unavailable Primary Care Provider Unavailabl e Social History Tobacco Use Types Packs/Day Years Used Date Smoking Tobacco: Never Assessed Sex and Gender Information Value Date Recorded Sex Assigned at Not on file Legal Sex Male 6:03 PM PST Gender Identity Not on file Sexual Orientation Not on file Plan of Treatment Not on file
--- OUTSIDE RECORDS SUMMARY | 2024-07-19 13:28 | XMS_ITS | Clinical Summary ---
Author Organization [facility] [address] Address [address] [place] [address] Care Team Providers Care Lawyer Probate Name Role Phone Unavailable Primary Care Provider Unavailabl e Allergies Active Allergy Reactions Criticality Noted Date Comments Amoxicillin Anaphylaxis High 12/16/2023 D And C Red No.40 Hives,Swelling High 12/16/2023 Penicillins Other (See Comments) High 01/05/2017 Unknown-childhood Medications hydrOXYzine pamoate (VISTARIL) 25 mg capsule Take 25 mg by mouth every 6 hours as needed. Active amphetamine-dex troamphetamine (ADDERALL XR) 30 mg Extended Release 24 hour capsule Take 1 Capsule by mouth daily. 01/28/2024 Active Active Problems No known active problems Encounters Date Type Department Care Team Description 07/18/2024 Orders Only [facility] Oncology and Hematology - [address] [place] [phone] Giovanny Banks MD Chronic anemia 07/11/2024 Orders Only [facility] Oncology and Hematology - [address] [place] [address] Giovanny Banks MD Chronic anemia 07/04/2024 Orders Only [facility] Oncology and Hematology - [address] [place] [address] Giovanny Banks MD Chronic anemia 06/27/2024 Orders Only [facility] Oncology and Hematology - [address] [place] [address] Giovanny Banks MD Chronic anemia 06/20/2024 Orders Only [facility] Oncology and Hematology - [address] [place] [address] Giovanny Banks MD Chronic anemia 06/13/2024 Orders Only [facility] Oncology and Hematology - [place] [address] [place] [id number] Giovanny Banks MD Chronic anemia 06/06/2024 Orders Only [facility] Oncology and Hematology - [address] Giovanny Banks MD Chronic anemia 05/30/2024 Orders Only [facility] Oncology and Hematology - [address] Giovanny Banks MD Chronic anemia 05/23/2024 Orders Only [facility] Oncology and Hematology - [address] [place] [id number] Giovanny Bakns MD Chronic anemia 05/16/2024 Orders Only [facility] Oncology and Hematology - [address] [place] [id number] Giovanny Banks MD Chronic anemia 05/09/2024 Orders Only [facility] Oncology and Hematology - [address] Giovanny Banks MD Chronic anemia 05/02/2024 Orders Only [facility] Oncology and Hematology - [address] Giovanny Banks MD Chronic anemia 04/25/2024 Orders Only [facility] Oncology and Hematology - [address] [place] [address] Giovanny Banks MD Chronic anemia from Last 3 Months Family History Medical History Relation Name Comments Diabetes Mother Thyroid Cancer Mother Lymphoma Sister Relation Name Status Comments Brother Alive Father Mother Alive Sister Alive Son Alive Social History Tobacco Use Types Packs/Day Years Used Date Smoking Tobacco: Never Smokeless Tobacco: Never Tobacco Cessation:Counseling Given: Not Answered Alcohol Use Standard Drinks/Week Comments Not Currently 0 (1 standard drink = 0.6 oz pur e alcohol) Sex and Gender Information Value Date Recorded Sex Assigned at Not on file Legal Sex Male 3:11 PM CDT Gender Identity Not on file Sexual Orientation Not on file Last Filed Vital Signs Vital Sign Reading Time Taken Comments Blood Pressure 98/61 03/09/2024 10:09 AM ORNAMENTAL PAINTER Pulse 82 03/09/2024 10:09 AM ORNAMENTAL PAINTER Temperature 36.4 C (97.6 F) 03/09/2024 10:09 AM ORNAMENTAL PAINTER Respiratory Rate 16 03/09/2024 10:09 AM ORNAMENTAL PAINTER Oxygen Saturation 98% 03/09/2024 10:09 AM ORNAMENTAL PAINTER Inhaled Oxygen Concentration - - Weight 76.2 kg (168 lb) 03/09/2024 10:09 AM ORNAMENTAL PAINTER Height - - Body Mass Index - - Plan of Treatment Health Maintenance Due Date Last Done Comments DTAP/TDAP/TD VACCINES (1 - Tdap) 2008 HEPATITIS B VACCINES (1 of 3 - 19+ 3-dose series) 2008 INFLUENZA VACCINE (#1) 2023 HPV VACCINES Aged Out No longer eligi ble based on patient's age to complete this topic
--- OUTSIDE RECORDS SUMMARY | 2024-07-19 13:28 | XMS_ITS | Clinical Summary ---
Author Organization [facility] Address [address] [place] [address] Care Team Providers Care Vocational Evaluator Name Role Phone Ezequiel Castañeda MD Primary Care Provider [phone] Source Comments [facility],non-owned Affiliates and Associated Physician Practices is amultiple site organization consisting of ambulatory clinics and hospital sitesin [place], [place], [place] and [place]. This disclosure is being madepursuant to the Care Everywhere program and may not contain all information available regarding this patient. Last updated 17.[facility] Allergies Active Allergy Reactions Criticality Noted Date Comments Amoxicillin Itching High 11/19/2022 Penicillins Itching,Other High 01/05/2017 Medications * Be aware that medications may not be up to date on this document. Alwaysverify current medications with the patient. creatinine POWD powder Take 5,000 (five thousand) mg by mouth once daily Active acetaminophen (Tylenol) 325 MG tablet Take 2 (two) tablets by mouth every 6 hours as needed for Fever or Pain Maximum allowable Acetaminophen amount = 4 Grams (4000 mg) / 24 hours. 60 tablet 3 Active oxyCODONE, immediate release, (Roxicodone) 5 MG tabletIndicati ons:Neck mass Take 1 (one) tablet by mouth every 6 hours as needed for Pain 8 tablet 3 Active ibuprofen (Motrin) 400 MG tablet Take 1 (one) tablet by mouth every 6 hours as needed for Pain 60 tablet 3 Active Active Problems Problem Noted Date Diagnosed Date Neck mass 11/19/2022 Social History Tobacco Use Types Packs/Day Years Used Date Smoking Tobacco: Never Smokeless Tobacco: Never Tobacco Cessation:Counseling Given: Not Answered Alcohol Use Standard Drinks/Week Comments Not Currently 0 (1 standard drink = 0.6 oz pur e alcohol) Sex and Gender Information Value Date Recorded Sex Assigned at Not on file Legal Sex Male 9:47 AM CDT Gender Identity Not on file Sexual Orientation Not on file Last Filed Vital Signs Vital Sign Reading Time Taken Comments Blood Pressure 112/48 12/01/2022 11:15 AM CDT Pulse 76 12/01/2022 11:15 AM CDT Temperature 36.3 C (97.4 F) 12/01/2022 10:15 AM CDT Respiratory Rate 15 12/01/2022 11:15 AM CDT Oxygen Saturation 95% 12/01/2022 11:15 AM CDT Inhaled Oxygen Concentration - - Weight 81.6 kg (180 lb) 12/01/2022 7:48 AM CDT Height 177.8 cm (5' 10) 12/01/2022 7:48 AM CDT Body Mass Index 25.83 12/01/2022 7:48 AM CDT Plan of Treatment Health Maintenance Due Date Last Done Comments HIB VACCINE (1 of 1 - Risk 1 -dose series) 11/19/1990 MENINGOCOCCAL GROUPS A/C/Y/W VACCINE (1 - Risk 2-dose series) 08/20/1991 MENINGOCOCCAL (Group B) VACC INE SHARED DECISION-MAKING (1 of 5 - Increased Risk) 08/20/1999 HIV SCREENING 2004 HEPATITIS C SCREENING 08/15/2007 DTAP/TDAP/TD VACCINES (1 - Tdap) 2008 HEPATITIS B VACCINE (1 of 3 - 19+ 3-dose series) 2008 PNEUMOCOCCAL VACCINE (1 of 2 - PCV) 2008 COVID-19 VACCINE (1 - 2023-2 5 season) 2023 DEPRESSION SCREENING 02/24/2024 INFLUENZA VACCINE (Season Ended) 2024 ZOSTER VACCINE (1 of 2) 08/20/2039 HPV VACCINE Aged Out No longer eligi ble based on patient's age to complete this topic Insurance Care Teams Vocational Evaluator Relationship Specialty Start Date End Date Ezequiel Castañeda MD [address] [place] [id number] PCP - General Family Medicine 11/10/22
--- OUTSIDE RECORDS SUMMARY | 2024-07-19 13:28 | XMS_ITS | Encounter Summary ---
Author Organization [facility] Address [address] [place] [address] Care Team Providers Care Pile Fabric Knitter Name Role Phone Unavailable Primary Care Provider Unavailabl e Encounter Details Date Type Department Care Team (Late st Contact Info) Description 07/18/2024 Orders Only [facility] Oncology and Hematology - [address] [facility] [address] [place] [address] Giovanny Banks MD [address] [facility] [address] [place] [address] Chronic anemia Social History Tobacco Use Types Packs/Day Years Used Date Smoking Tobacco: Never Smokeless Tobacco: Never Alcohol Use Standard Drinks/Week Comments Not Currently 0 (1 standard drink = 0.6 oz pur e alcohol) Sex and Gender Information Value Date Recorded Sex Assigned at Not on file Legal Sex Male 3:11 PM CDT Gender Identity Not on file Sexual Orientation Not on file documented as of this encounter Plan of Treatment Not on file documented as of this encounter Visit Diagnoses Diagnosis Chronic anemia Anemia, unspecified documented in this encounter
--- OUTSIDE RECORDS SUMMARY | 2024-07-19 13:28 | XMS_ITS | Clinical Summary ---
Author Organization [facility] Care Team Providers Care Judicial Assistant Name Role Phone Unavailable Primary Care Provider Unavailabl e Social History Tobacco Use Types Packs/Day Years Used Date Smoking Tobacco: Never Assessed Sex and Gender Information Value Date Recorded Sex Assigned at Not on file Legal Sex Male 7:01 PM SAFETY PERSON Gender Identity Not on file Sexual Orientation Not on file Plan of Treatment Health Maintenance Due Date Last Done Comments Hepatitis C Virus (HCV) Screening 1989 TdaP Immunization 1989 Hepatitis B Immunization (1 of 3 - 19+ 3-dose series) 2008 Influenza Immunization (#1) 2023 SARS-COV-2 Immunization ( - season) 2023 Respiratory Syncytial Virus (RSV) Immunization (Adult) (1 - 1-dose 75+ series) 2064 Meningococcal Immunization (ACWY) Aged Out No longer eligible based on patient's age to complete this topic Pneumococcal Immunization Combined Aged Out No longer eligible based on patient's age to complete this topic Rotavirus Immunization Aged Out No lo nger eligible based on patient's age to complete this topic
--- OUTSIDE RECORDS SUMMARY | 2024-07-19 13:28 | XMS_ITS | Encounter Summary ---
Author Organization [facility] [place] [address] [place] [address] Care Team Providers Care Test Boring Crew Chief Name Role Phone Unavailable Primary Care Provider Unavailabl e Prior Encounters Date Type Department Care Team Description 03/14/2019 Converted CPS Chart Documents [facility] [address] [place] [address] <No scans attached> 03/14/2019 Converted 13x Documents [facility] [address], [address] [place] [address] <No scans attached> Plan of Treatment Not on file Procedures Procedure Name Priority Date/Time Associated Diagnosis Comments COMPREHENSIVE ORAL EVALUATION - NEW OR ESTABLISHED PATIENT Routine 03/16/2017 1:00 AM [facility] PANORAMIC RADIOGRAPHIC IMAGE Routine 03/16/2017 1:00 AM [facility] INTRAORAL - COMPREHENSIVE SERIES OF RADIOGRAPHIC IMAGES Routine 03/16/2017 1:00 AM [facility] INTRAORAL PHOTO Routine 03/16/2017 1:00 AM [facility] INTRAORAL PHOTO Routine 03/16/2017 1:00 AM [facility] INTRAORAL PHOTO Routine 03/16/2017 1:00 AM [facility] INTRAORAL PHOTO Routine 03/16/2017 1:00 AM [facility] Visit Diagnoses Not on file
--- OUTSIDE RECORDS SUMMARY | 2024-07-19 13:28 | XMS_ITS | CONTINUITY OF CARE DOCUMENT ---
Author Name shawna matos Address Unknown Organization [facility] Address [address] [place] [address] Phone [phone] Care Team Providers Care Content Curator Name Role Phone Leodan RODRIGUEZ, Cecilia Unavailable [phone] CHEYENNE ISAAC MD Unavailable [phone] CHEYENNE ISAAC MD Unavailable [phone] PROBLEMS Condition Status Date Provider Notes Chest pain-type to be determined active William Alcocer MD Shortness of breath active Cecilia Alcocer MD Idiopathic thrombocytopenic purpura s/p splenectomy active Cecilia Alcocer MD Dizziness active Cecilia Alcocer MD ENCOUNTERS Date Type Provider Location Encounter Diag nosis - In-person encounter Office Visit Cecilia Alcocer MD [facility] Chest pain-type to be determinedShortness of breathIdiopathic thrombocytopenic purpura s/p splenectomyDizziness VITAL SIGNS Date Observation Value Provider Body Mass Index (Ratio) 32.55 kg/m2 Kenrick Alcocer MD blood pressure, diastolic 66 mm[Hg] Jessi nkLogleida blood pressure, systolic 110 mm[Hg] Fani kLogleida blood pressure, diastolic 66 mm[Hg] Rama Ledezma blood pressure, systolic 110 mm[Hg] Osmin Ledezma oxygen saturation, oximetry 99 % Salome Ledezma pulse rate 70 /min Salome voss weight E&M 178 [lb_av] Salome voss height E&M 62 [in_i] Salome voss respiratory rate E&M 16 /min Latia Ledezma blood pressure, cuff size large Mi jeffrey Ledezma ALLERGIES Allergy Name Onset Date Reaction Criticality Status AMOXICILLIN High Criticality active INSURANCE PROVIDERS Payer name Policy type / Coverage type Athena red green party ID [facility] Medicaid 4 [id number] ADVANCE DIRECTIVES Name Date DISCUSSED - NO DECISION MADE TREATMENT PLAN Date Name Performer [id number],SCecilia MD [id number],SCecilia MD [id number],BCecilia MD [id number],SCecilia MD Cardiology Cecilia Alcocer MD Cardiology Cecilia Alcocer MD Cardiology Cecilia Alcocer MD Cardiology Cecilia Alcocer MD Date Name CT, Coronary Calcium Score Stress Routine Complete Echo HISTORY OF PROCEDURES Procedure Date Procedure Name Provider Procedure Notes S tatus EKG Cecilia Alcocer MD completed
[2024-07-19 13:30] VITALS: BP 112/61; PULSE 93; RESP 16; TEMP 36.9; O2SAT 100
--- NOTE | 2024-07-19 15:14 | PC.NURSE ---
Patient now reporting that all symptoms have gone away and he feels better so is planning to just go home and rest. advised to return for any worsening problems
--- OUTSIDE RECORDS SUMMARY | 2024-07-19 15:48 | XMS_ITS | Encounter Summary ---
Author Organization [facility] [employer] [facility] Address [address] [place] [address] Care Team Providers Care Research Aide Name Role Phone Unavailable Primary Care Provider Unavailabl e Encounter Details Date Type Department Care Team (Late st Contact Info) Description 07/18/2024 Orders Only [facility] Oncology and Hematology - [address] [facility] [address] [place] [address] Giovanny Banks MD [address] [facility] [address] [place] [address] Chronic anemia Social History Tobacco [...]
--- OUTSIDE RECORDS SUMMARY | 2024-07-19 15:48 | XMS_ITS | Clinical Summary ---
Author Organization [facility] [place] Address [address] [place] [address] Care Team Providers Care Entry Level Sales Associate Name Role Phone Ezequiel Castañeda MD Primary Care Provider [phone] Source Comments [facility] [place],non-owned Affiliates and Associated Physician Practices is amultiple site organization consisting of ambulatory clinics and hospital sitesin [place], [place], [place] and [place]. This disclosure is being madepursuant to the Care Everywhere program and may not contain all information available regarding this patient. Last updated 17.[facility] [place] Allergies Active Allergy Reactions Criticality Noted Date [...] to complete this topic Insurance Care Teams Entry Level Sales Associate Relationship Specialty Start Date End Date Ezequiel Castañeda MD [address] [place] [id number] PCP - General Family Medicine 11/10/22
--- OUTSIDE RECORDS SUMMARY | 2024-07-19 15:48 | XMS_ITS | Clinical Summary ---
Author Organization [facility] Care Team Providers Care Motion Picture Commentator Name Role Phone Unavailable Primary Care Provider Unavailabl e Social History Tobacco Use Types Packs/Day Years Used Date Smoking Tobacco: Never Assessed Sex and Gender Information Value Date Recorded Sex Assigned at Not on file Legal Sex Male 7:[address] REPORTER Gender Identity Not on file Sexual Orientation [...]
--- OUTSIDE RECORDS SUMMARY | 2024-07-19 15:48 | XMS_ITS | CONTINUITY OF CARE DOCUMENT ---
Author Name shawna matos Address Unknown Organization [facility] Address [address] [place] [address] Phone [phone] Care Team Providers Care Printed Circuit Boards Plasma Etcher Name Role Phone Leodan RODRIGUEZ, Cecilia Unavailable CHEYENNE ISAAC MD Unavailable [phone] CHEYENNE ISAAC MD Unavailable [phone] PROBLEMS Condition Status Date Provider Notes Chest pain-type to be determined active William Alcocer MD Shortness of breath active Cecilia Alcocer MD Idiopathic thrombocytopenic purpura s/p splenectomy active Cecilia Alcocer MD Dizziness active Cecilia Alcocer MD ENCOUNTERS Date Type Provider Location Encounter Diag nosis - In-person encounter Office Visit Cecilia Alcocer MD [place] Office Chest pain-type to be determinedShortness of [...] Payer name Policy type / Coverage type [place] red alliance party ID [facility] Medicaid 4 [id number] Identiv 9 [id number] ADVANCE DIRECTIVES Name Date DISCUSSED - NO DECISION MADE TREATMENT PLAN Date Name Performer [id number],SCecilai MD [id number],SCecilia MD [id number],BCecilia MD [id number],SCecilia MD Cardiology Cecilia Alcocer MD Cardiology Cecilia Alcocer MD Cardiology Cecilia Alcocer MD Cardiology Cecilia Alcocer MD Date Name CT, Coronary Calcium Score Stress Routine Complete Echo HISTORY OF PROCEDURES Procedure Date Procedure Name Provider Procedure Notes S tatus EKG Cecilia Alcocer MD completed
--- OUTSIDE RECORDS SUMMARY | 2024-07-19 15:48 | XMS_ITS | Encounter Summary ---
Author Organization [facility] Address [address] [place] [address] Care Team Providers Care Purchasing Agent Name Role Phone Unavailable Primary Care Provider [...] OR ESTABLISHED PATIENT Routine 03/16/2017 1:00 AM [facility] PANORAMIC RADIOGRAPHIC IMAGE Routine 03/16/2017 1:00 AM [facility] INTRAORAL - COMPREHENSIVE SERIES OF RADIOGRAPHIC IMAGES Routine 03/16/2017 1:00 AM [facility] INTRAORAL PHOTO Routine 03/16/2017 1:00 AM [facility] INTRAORAL PHOTO Routine 03/16/2017 1:00 AM [facility] INTRAORAL PHOTO Routine 03/16/2017 1:00 AM [facility] INTRAORAL PHOTO Routine 03/16/2017 1:00 AM [facility] Visit Diagnoses Not on file
--- OUTSIDE RECORDS SUMMARY | 2024-07-19 15:48 | XMS_ITS | Clinical Summary ---
Author Organization [facility] [place] Address [address] [place] [address] Care Team Providers Care Disability Liaison Officer Name Role Phone Unavailable Primary Care Provider [...] Department Care Team Description 07/18/2024 Orders Only [facility] Oncology and Hematology - [address] [place] [phone] Giovanny Banks MD Chronic anemia 07/11/2024 Orders Only [facility] Oncology and Hematology - Luis [address] [place] [phone] Giovanny Banks MD Chronic anemia 07/04/2024 Orders Only [facility] Oncology and Hematology - Luis [address] [place] [address] Giovanny Banks MD Chronic anemia 06/27/2024 Orders Only [facility] Oncology and Hematology - [address] [place] [address] Giovanny Banks MD Chronic anemia 06/20/2024 Orders Only [facility] Oncology and Hematology - [address] [place] [address] Giovanny Banks MD Chronic anemia 06/13/2024 Orders Only [facility] Oncology and Hematology - Luis [address] [place] [id number] Giovanny Banks MD Chronic anemia 06/06/2024 Orders Only [facility] Oncology and Hematology - [address] Giovanny Banks MD Chronic anemia 05/30/2024 Orders Only [facility] Oncology and Hematology - [address] Giovanny Banks MD Chronic anemia 05/23/2024 Orders Only [facility] Oncology and Hematology - [address] [place] [phone] Giovanny Banks MD Chronic anemia 05/16/2024 Orders Only [facility] Oncology and Hematology - [address] [place] [id number] Giovanny Banks MD Chronic anemia 05/09/2024 Orders Only [facility] Oncology and Hematology - [address] Giovanny Banks MD Chronic anemia 05/02/2024 Orders Only [facility] Oncology and Hematology - [address] Giovanny Banks MD Chronic anemia 04/25/2024 Orders Only [facility] Oncology and Hematology - [address] [place] [address] Giovanny Banks MD Chronic anemia [...] Comments Blood Pressure 98/61 03/09/2024 10:09 AM RN PRIOR AUTHORIZATION Pulse 82 03/09/2024 10:09 AM RN PRIOR AUTHORIZATION Temperature 36.4 C (97.6 F) 03/09/2024 10:09 AM RN PRIOR AUTHORIZATION Respiratory Rate 16 03/09/2024 10:09 AM RN PRIOR AUTHORIZATION Oxygen Saturation 98% 03/09/2024 10:09 AM RN PRIOR AUTHORIZATION Inhaled Oxygen Concentration - - Weight 76.2 kg (168 lb) 03/09/2024 10:09 AM RN PRIOR AUTHORIZATION Height - - Body Mass Index - - Plan of Treatment Health Maintenance Due Date Last Done Comments DTAP/TDAP/TD VACCINES (1 - Tdap) 2008 HEPATITIS B VACCINES (1 of 3 - 19+ 3-dose series) 2008 INFLUENZA VACCINE (#1) 2023 HPV VACCINES Aged Out No longer eligi ble based on patient's age to complete this topic
--- OUTSIDE RECORDS SUMMARY | 2024-07-19 15:48 | XMS_ITS | Clinical Summary ---
Author Organization [facility] Address [address] [place] [address] Care Team Providers Care Cocoa Bean Cleaner Name Role Phone Unavailable Primary Care Provider [...]
== END 2024-07-19 16:24 | disposition left against medical advice (07) ==
LOC: ANHED 15:47
PROVIDERS: PCP Emergency Medicine
DX: R10.9 Unspecified abdominal pain (principal)
CPT/HCPCS: 99199

== ENCOUNTER 2024-08-09 23:32 | Observation (INO) | payer SELFPAY ==
--- NOTE | ~2024-08-09 | CT_ITS ---
Non-contrast CT scan of the Abdomen and Pelvis Clinical indication: Abdominal pain Technique: 2.5 mm axial scans were obtained through the abdomen and pelvis without intravenous or or al contrast. Dose reduction technique was used on this scan by utilizing automated exposure control a nd iterative reconstruction technique. The dose-length product (DLP) was 290.65 mGy-cm. Findings: Images through the lung bases reveal no abnormalities. Nonobstructing left renal stone measures 4 mm. Nonobstructing right renal stone measures 3 mm. There is a 5 mm stone at the left UVJ, without vee hydronephrosis. No right ureteral stone evident. The liver, pancreas, gallbladder, and adrenals appear normal. Status post splenectomy. There is no ao rtic aneurysm. There is no evidence of bowel obstruction. Probable prior appendectomy. Images through the pelvis were performed. There is no evidence of ascites or lymphadenopathy. Urinary bladder otherwise unremarkable. No pelvic mass seen. Impression: 5 mm left UVJ stone, without hydronephrosis. Additional small bilateral nonobstructing renal stones, as detailed above. Status post splenectomy and probable appendectomy. Reviewed, dictated and finalized at [facility]. Impression: 5 mm left UVJ stone, without hydronephrosis. Additional small bilateral nonobstructing renal stones, as detailed above. Status post splenectomy and probable appendectomy.
[2024-08-09 23:39] VITALS: BP 135/74; PULSE 86; RESP 15; TEMP 36.8; O2SAT 99
[2024-08-09 23:58] LABS: Basophils Absolute Auto 0.1 K/mm3 (0.0-0.1); Basophils Percent Auto 0.9 % (0.2-1.2); Eosinophils Absolute Auto 0.7 K/mm3 (0-0.3); Eosinophils Percent Auto 9.2 % (0-4.4); Hemoglobin 12.1 g/dL (14.0-18.0); Immature Granulocyte Absolute 0.01 K/mm3 (0.00-0.031); Immature Granulocyte Percent A 0.1 % (0-0.5); Lymphocytes Absolute Auto 2.14 K/mm3 (0.9-3.2); Mean Corpuscular HGB Conc 33.6 g/dl (32-36); Mean Corpuscular Volume 89.3 fl (80-100); Monocytes Absolute Auto 0.8 K/mm3 (0.1-0.6); Monocytes Percent Auto 10.4 % (2.6-8.5); Neutrophils Absolute Auto 3.7 K/mm3 (1.3-6.7); Neutrophils Percent Auto 50.4 % (45.5-73.1); Platelet Count Result 335 k/mm3 (150-375); Red Blood Count 4.03 M/mm3 (4.6-6.20); Red Cell Distribution Width 13.4 % (11.5-14.5); White Blood Count 7.4 K/mm3 (4.5-10.0)
[2024-08-09] MEDS: LACTATED RINGERS 1,000 ML 999 ML IV CONT (23:59)
--- NOTE | 2024-08-10 00:11 | ED.ABDPAIN ---
HPI - Abdominal Pain General Chief Complaint: Abdominal Pain Stated Complaint: abd pain Time Seen by Provider: 08/09/24 23:46 History of Present Illness HPI narrative: 33-year-old male with a history of immune thrombocytopenia status post splenectomy, kidney stones. Patient presents to the emergency department with lower abdominal pain that started as flank and back pain. He states that he has a history of kidney stones in this feels very similar. He is also states that he is feeling dehydrated and bring working out in the hot sun over a new job recently. Endorses some blood or discolored urine. States his pain migrated from his bilateral flanks and now feels suprapubic and his low pelvis. Radiates towards his groin but denies any testicular pain or swelling. No trauma or injury. No nausea or vomiting. No diarrhea constipation. Fever or chills. Related Data Home Medications ?Medication ?Instructions ?Recorded ?Confirmed ?Last Taken ?Type Adderall 15 mg PO DAILY 01/01/24 01/27/24 Unknown History Allergies Allergy/AdvReac Type Severity Reaction Status Date / Time red dye Allergy Intermediate Swelling Verified 08/09/24 23:33 of Lip/Tongue/Throat amoxicillin Allergy Mild Unknown Verified 08/09/24 23:33 Penicillins Allergy Mild Unknown Verified 08/09/24 23:33 Olives with Feta Allergy Swelling Uncoded 08/09/24 23:33 cheese-[employer] of the Eye Review of Systems Review of Systems: As reviewed above in HPI [facility] Past Medical History Medical History Psoriatic arthritis Tiffany's disease Anxiety History of ITP Surgical History Surgical History H/O splenectomy History of appendectomy Social History Social History Smoking status: Former smoker Tobacco type: cigarettes and e-cigarettes/vaping Smokeless tobacco user: other Second hand tobacco smoke exposure: No Smoking end date: 12/21/22 Alcohol intake: never Substance use type: marijuana and crack/cocaine Other substance usage details: cocaine over the weekend Last use: 10/31/23 Do You Feel Safe in your Home?: Yes Lack of Transportation: No Lack of Food: Never True Current Housing: I Have Housing Concerned About Future Housing: No Difficulty Paying Gas/Electric Bills: YES Difficulty Paying for Meds: YES Currently Unemployed: YES Education: High School Diploma/GED Difficulty w/ Childcare or Family Care: No Spiritual care concerns: No Exam Narrative: GENERAL: [Well-appearing, well-nourished, and in no acute distress.] HEAD: [Normocephalic, atraumatic.] EYES: [PERRLA and EOMI.] ENT: Nares clear, no rhinorrhea or epistaxis. Mucous membranes moist. NECK: Supple. CHEST: [Clear to auscultation. No respiratory distress.] HEART: [Regular rate and rhythm]. No murmur heard. [Normal peripheral pulses.] ABDOMEN: [Soft, nondistended], minimally tender in the suprapubic region but no overt signs of peritonitis, [No rigidity or guarding] EXTREMITIES: Normal range of motion. [No edema.] SKIN: Warm, dry, no rash. NEURO: [No focal deficits]. Alert and oriented [x3.] PSYCH: [Normal mood and affect.] Course Vital Signs Vital signs: Vital Signs Temperature 36.8 C 08/09/24 23:39 Pulse Rate 86 08/09/24 23:39 Respiratory Rate 15 08/09/24 23:39 Blood Pressure 135/74 08/09/24 23:39 Pulse Oximetry 99 08/09/24 23:39 Oxygen Delivery Room Air 08/09/24 23:39 Temperature 36.8 C 08/09/24 23:39 Pulse Rate 78 08/10/24 02:04 Respiratory Rate 15 08/10/24 02:04 Blood Pressure 110/67 08/10/24 02:04 Pulse Oximetry 99 08/10/24 02:04 Oxygen Delivery Room Air 08/09/24 23:39 MDM - Abdominal Pain MDM Narrative Medical decision making narrative: 33-year-old male with a history of immune thrombocytopenia status post splenectomy as well as history of kidney stones presenting with bilateral flank pain radiating towards his abdomen/suprapubic region associated with some discolored urine concern for hematuria. He has a soft nondistended but mildly tender suprapubic region of his abdomen. He has normal vital signs with any tachypnea, tachycardia, fever, hypoxia blood pressure concerns. He also recently started a job outside and feels dehydrated. Differential includes dehydration, urinary tract infection, kidney stone, obstructing kidney stone, pyelonephritis, rhabdomyolysis, less likely intra-abdominal infection otherwise. He is well-appearing. A CT was ordered without contrast, CBC, CMP, CPK, lipase was ordered he was given fluids, morphine and Zofran for symptom control. CT scan was independently reviewed and also interpreted by radiology. There is an obstructing 5 x 3 x 3 mm stone within the left UVJ consistent with patient's historical features and pain location. Dilated left kidney with mild hydro. Nonobstructing calculi in the kidneys bilaterally, no evidence of acute bowel obstruction or other acute process in the abdomen or pelvis. Patient's laboratory studies reassuring without any leukocytosis or anemia worse than baseline. Normal platelet count. Urinalysis was blood but no signs of infection. CPK is elevated at 1203 indicative of rhabdomyolysis likely from dehydration and working in the heat outside consistent with his historical features as well. This was down trending on repeat assessment after fluid boluses. Patient is uncomfortable appearing during repeat assessments and requiring additional analgesia with multiple rounds of morphine and Zofran. He was put on additional fluids and maintenance infusion at this time. Discussed the case with the on-call urologist Dr. Curry who will evaluate the patient this morning for potential interventions or see if he passes the stone with additional fluid resuscitation. Spoke to the hospitalist who accepted him for observation admission. Patient made aware of the plan and comfortable with admission for observation and Urology evaluation. Admission orders and medications placed, NPO status placed. Medical Records Attestation: I reviewed the patient's medical records. Lab Data Attestation: I reviewed the patient's lab results. 08/09/24 23:49 08/09/24 23:49 Labs: Lab Results 08/09/24 08/10/24 Range/Units 23:49 02:29 WBC 7.4 (4.5-10.0) K/mm3 RBC 4.03 L (4.6-6.20) M/mm3 Hgb 12.1 L (14.0-18.0) g/dL Hct 36.0 L (42.0-52.0) % MCV 89.3 (80-100) fl MCH 30.0 (26-34) pg MCHC 33.6 (32-36) g/dl RDW 13.4 (11.5-14.5) % Plt Count 335 (150-375) k/mm3 MPV 9.0 (7.4-10.4) fl Immature Gran % (Auto) 0.1 (0-0.5) % Neut % (Auto) 50.4 (45.5-73.1) % Lymph % (Auto) 29.0 (18.3-44.2) % [place] % (Auto) 10.4 H (2.6-8.5) % Eos % (Auto) 9.2 H (0-4.4) % Baso % (Auto) 0.9 (0.2-1.2) % Lymph # (Auto) 2.14 (0.9-3.2) K/mm3 [place] # (Auto) 0.8 H (0.1-0.6) K/mm3 Eos # (Auto) 0.7 H (0-0.3) K/mm3 Baso # (Auto) 0.1 (0.0-0.1) K/mm3 Abs Immat Gran (auto) 0.01 (0.00-0.031) K/mm3 Absolute Neuts (auto) 3.7 (1.3-6.7) K/mm3 Absolute Nucleated RBC 0.000 (0.0-0.012) K/mm3 Nucleated RBC % 0.0 (0.0-0.2) % Sodium 135 L (137-145) mmol/L Potassium 3.6 (3.4-5.0) mmol/L Chloride 106 (98-107) mmol/L Carbon Dioxide 20 L (22-30) mmol/L Anion Gap 9 (4-12) mmol/L BUN 17 (9-20) mg/dL Creatinine 0.98 (0.7-1.3) mg/dL Estim Creat Clear Calc 100 ml/min Estimated GFR > 60 (59 - ) Glucose 111 H (65-110) mg/dL Calcium 9.2 (8.4-10.2) mg/dL Total Bilirubin 0.4 (0.2-1.3) mg/dL AST 50 (17-59) U/L ALT 29 (6-50) U/L Alkaline Phosphatase 45 (38-126) U/L Total Creatine Kinase 1203 H 955 H (55-170) U/L Total Protein 7.1 (6.3-8.2) g/dL Albumin 4.6 (3.5-5.1) g/dL Lipase 64 (23-300) U/L Urine Color Yellow (Yellow) Urine Appearance Clear (Clear) Urine pH 5.5 (5.0-9.0) Ur Specific [place] 1.022 (1.001-1.035) Urine Protein Negative (Negative) mg/dL Urine Glucose (UA) Negative (Negative) mg/dL Urine Ketones Trace H (Negative) mg/dL Ur Blood (Man) 2+ H (Negative) Urine Nitrate Negative (Negative) Urine Bilirubin Negative (Negative) Urine Urobilinogen 1.0 (<2.0) mg/dL Leukocyte Esterase Rfl Negative (Negative) OPAL/UL Urine RBC 51-100 H (0-2) /hpf Urine WBC 0-5 (0-3) /hpf Ur Squamous Epith Cells None seen (Few) /hpf Urine Bacteria None seen /hpf Urine Casts 0-2 Imaging Data Attestation: I personally reviewed and interpreted this imaging study as follows: My impression: Obstructing 5 x 3 x 3 mm stone left UVJ with left hydronephrosis. Discharge Plan Discharge Clinical Impression: Calculus of ureterovesical junction (UVJ), Hydronephrosis, left, Rhabdomyolysis Patient Disposition: Still a Patient Condition: Stable Instructions: Antibiotic Form Patient Language: Romanian Prescriptions: No Action Adderall 15 mg tablet 15 mg PO DAILY fluticasone propionate [24 Hour Allergy Relief] 50 mcg/actuation spray,suspension 1 spray intranasal BID Qty: 16 0RF Rx Instructions: administer into each nostril Follow-up/Referrals: Ezequiel Castañeda MD [Primary Care Provider] - Time of Disposition: 03:57
[2024-08-10 00:19] LABS: Alanine Aminotransferase 29 U/L (6-50); Albumin Level 4.6 g/dL (3.5-5.1); Alkaline Phosphatase 45 U/L (38-126); Anion Gap 9 mmol/L (4-12); Aspartate Amino Transferase 50 U/L (17-59); Bilirubin,Total 0.4 mg/dL (0.2-1.3); Blood Urea Nitrogen 17 mg/dL (9-20); Calcium 9.2 mg/dL (8.4-10.2); Carbon Dioxide 20 mmol/L (22-30); Chloride 106 mmol/L (98-107); Creatine Kinase 1203 U/L (55-170); Estimated CRCL calculation 100 ml/min; Estimated Glomerular Filt Rate > 60; Glucose 111 mg/dL (65-110); Lipase 64 U/L (23-300); Potassium 3.6 mmol/L (3.4-5.0); Sodium 135 mmol/L (137-145); Total Protein 7.1 g/dL (6.3-8.2)
[2024-08-10 00:22] LABS: Bacteria Urine None Seen /hpf; Non Pathogenic Casts 0-2; RBC Urine 51-100 /hpf (0-2); Squamous Epithelial Cell Urine None Seen /hpf (Few); WBC Urine 0-5 /hpf (0-3)
--- OUTSIDE RECORDS SUMMARY | 2024-08-10 00:26 | XMS_ITS | Encounter Summary ---
Author Organization [facility] Address [address] [place] [address] Care Team Providers Care Objects Conservator Name Role Phone Unavailable Primary Care Provider Unavailabl e Encounter Details Date Type Department Care Team (Late st Contact Info) Description 08/08/2024 Orders Only [facility] Oncology and Hematology - [address] [facility] [address] [place] [address] Giovanny Banks MD [address] [address] [place] [address] Chronic anemia Social History Tobacco [...]
--- OUTSIDE RECORDS SUMMARY | 2024-08-10 00:26 | XMS_ITS | Clinical Summary ---
Author Organization [facility] Address [address] [place] [address] Care Team Providers Care Tamale Machine Feeder Name Role Phone Unavailable Primary Care Provider Unavailabl e Social History Tobacco Use Types Packs/Day Years Used Date Smoking Tobacco: Never Assessed Sex and Gender Information Value Date Recorded Sex Assigned at Not on file Legal Sex Male 6:05 PM CDT Gender Identity Not on file Sexual Orientation Not on file Plan of Treatment Health Maintenance Due Date Last Done Comments Annual Physical 1992 Hepatitis C 08/20/2007 DTaP, Tdap and Td Vaccines ( 1 - Tdap) 2008 Hepatitis B Vaccines (1 of 3 - 19+ 3-dose series) 2008 COVID-19 Vaccine (2023-2 5 season) 2023 HPV Vaccines Aged Out No longer eligi ble based on patient's age to complete this topic Meningococcal B Vaccine Aged Out No l onger eligible based on patient's age to complete this topic Meningococcal Vaccine Aged Out No chaim margy eligible based on patient's age to complete this topic Pneumococcal Vaccine: Pediat rics (0 to 5 Years) and At-Risk Patients (6 to 49 Years) Aged Out No longer eligible b ased on patient's age to complete this topic RSV Immunizations Under 20 Months Aged Out No longer eligible based on patient's age to complete this topic
--- OUTSIDE RECORDS SUMMARY | 2024-08-10 00:26 | XMS_ITS | Clinical Summary ---
Author Organization [facility] Address [address] [place] [address] Care Team Providers Care Painter And Decorator Apprentice Name Role Phone Unavailable Primary Care Provider [...]
--- OUTSIDE RECORDS SUMMARY | 2024-08-10 00:26 | XMS_ITS | CONTINUITY OF CARE DOCUMENT ---
Author Name shawna matos Address Unknown Organization [facility] Address [address] [place] [address] Phone [phone] Care Team Providers Care Sports Agent Name Role Phone Leodan RODRIGUEZ, Cecilia Unavailable [phone] CHEYENNE ISAAC MD Unavailable [phone] CHEYENNE ISAAC MD Unavailable [phone] PROBLEMS Condition Status Date Provider Notes Chest pain-type to be determined active William Alcocer MD Shortness of breath active Cecilia Alcocer MD Idiopathic thrombocytopenic purpura s/p splenectomy active Cecilia Alcocer MD Dizziness active Cecilia Alcocer MD ENCOUNTERS Date Type Provider Location Encounter Diag nosis - In-person encounter Office Visit Cecilia Alcocer MD [place] Office Chest pain-type to be determinedShortness of [...] Payer name Policy type / Coverage type [place] red [place] ID [facility] Medicaid 4 [id number] [employer] 9 [id number] ADVANCE DIRECTIVES Name Date DISCUSSED - NO DECISION MADE TREATMENT PLAN Date Name Performer [id number],SCecilia MD [id number],SCecilia MD [id number],BCecilia MD [id number],SCecilia MD Cardiology Cecilia Alcocer MD Cardiology Cecilia Alcocer MD Cardiology Cecilia Alcocer MD Cardiology Cecilia Alcocer MD Date Name CT, Coronary Calcium Score Stress Routine Complete Echo HISTORY OF PROCEDURES Procedure Date Procedure Name Provider Procedure Notes S tatus EKG Cecilia Alcocer MD completed
--- OUTSIDE RECORDS SUMMARY | 2024-08-10 00:26 | XMS_ITS | Clinical Summary ---
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
--- OUTSIDE RECORDS SUMMARY | 2024-08-10 00:26 | XMS_ITS | Clinical Summary ---
Author Organization [facility] Address [address] [place] [address] Care Team Providers Care Pie Icer Machine Name Role Phone Ezequiel Castañeda MD Primary Care Provider [phone] Source Comments [facility],non-owned Affiliates and Associated Physician Practices is amultiple site organization consisting of ambulatory clinics and hospital sitesin [place], [place], [place] and [place]. This disclosure is being madepursuant to the Care Everywhere program and may not contain all information available regarding this patient. Last updated 17.[facility] Allergies Active Allergy Reactions Criticality Noted Date [...] to complete this topic Insurance Care Teams Pie Icer Machine Relationship Specialty Start Date End Date Ezequiel Castañeda MD [address] [place] [address] PCP - General Family Medicine 11/10/22
--- OUTSIDE RECORDS SUMMARY | 2024-08-10 00:26 | XMS_ITS | Clinical Summary ---
Author Organization [facility] [address] Address [address] [place] [address] Care Team Providers Care Sld Teacher Name Role Phone Unavailable Primary Care Provider [...] Encounters Date Type Department Care Team Description 08/08/2024 Orders Only [facility] Oncology and Hematology - [address] [place], [place] [phone] Giovanny Banks MD Chronic anemia 08/01/2024 Orders Only [facility] Oncology [facility] Hematology - Luis Jyoti Gre[address] [place] [phone] Giovanny Banks MD Chronic anemia 07/25/2024 Orders Only [facility] Oncology and Hematology - [place] [address] [place] [address] Giovanny Banks MD Chronic anemia 07/18/2024 Orders Only [facility] Oncology and Hematology - [address] [place] [address] Giovanny Banks MD Chronic anemia 07/11/2024 Orders Only [facility] Oncology and Hematology - [address] [place] [address] Giovanny Banks MD Chronic anemia 07/04/2024 Orders Only [facility]ematology - Luis [address] [place] [phone] Giovanny Banks MD Chronic anemia 06/27/2024 Orders Only [facility]ology - [address] Giovanny Banks MD Chronic anemia 06/20/2024 Orders Only [facility] and Hematology - [address] Giovanny Banks MD Chronic anemia 06/13/2024 Orders Only [facility]ology - [address] [place] [phone] Giovanny Banks MD Chronic anemia 06/06/2024 Orders Only [facility]ology - [address] Giovanny Banks MD Chronic anemia 05/30/2024 Orders Only [facility]ology - [address] Giovanny Banks MD Chronic anemia 05/23/2024 Orders Only [facility]ology - [address] Giovanny Banks MD Chronic anemia 05/16/2024 Orders Only [facility]ology - [address] [place] [address] Giovanny Banks MD Chronic anemia [...] Comments Blood Pressure 98/61 03/09/2024 10:09 AM [facility] Pulse 82 03/09/2024 10:09 AM [facility] Temperature 36.4 C (97.6 F) 03/09/2024 10:09 AM [facility] Respiratory Rate 16 03/09/2024 10:09 AM [facility] Oxygen Saturation 98% 03/09/2024 10:09 AM [facility] Inhaled Oxygen Concentration - - Weight 76.2 kg (168 lb) 03/09/2024 10:09 AM [facility] Height - - Body Mass Index - - Plan of Treatment Health Maintenance Due Date Last Done Comments DTAP/TDAP/TD VACCINES (1 - Tdap) 2008 HEPATITIS B VACCINES (1 of 3 - 19+ 3-dose series) 2008 INFLUENZA VACCINE (#1) 2023 HPV VACCINES Aged Out No longer eligi ble based on patient's age to complete this topic
--- OUTSIDE RECORDS SUMMARY | 2024-08-10 00:27 | XMS_ITS | Encounter Summary ---
Author Organization [facility] Health Address [address] [place] [address] Care Team Providers Care Aircraft Engine Mechanic Name Role Phone Unavailable Primary Care Provider Unavailabl e Prior Encounters Date Type Department Care Team Description 03/14/2019 Converted CPS Chart Documents [facility] [address], [address] [place] [address] <No scans attached> 03/14/2019 Converted 13x Documents [facility] [address], [address] [place] [address] <No scans attached> Plan of Treatment Not on file Procedures Procedure Name Priority Date/Time Associated Diagnosis Comments COMPREHENSIVE ORAL EVALUATION - NEW OR ESTABLISHED PATIENT Routine 03/16/2017 1:00 AM [facility] PANORAMIC RADIOGRAPHIC IMAGE Routine 03/16/2017 1:00 AM [facility] INTRAORAL - COMPREHENSIVE SERIES OF RADIOGRAPHIC IMAGES Routine 03/16/2017 1:00 AM [facility] INTRAORAL PHOTO Routine 03/16/2017 1:00 AM [facility] INTRAORAL PHOTO Routine 03/16/2017 1:00 AM [facility] INTRAORAL PHOTO Routine 03/16/2017 1:00 AM [facility] INTRAORAL PHOTO Routine 03/16/2017 1:00 AM [facility] Visit Diagnoses Not on file
[2024-08-10 00:28] LABS: Add Urine Microscopic? YES; Appearance Urine Clear (Clear); Bilirubin Urine Negative (Negative); Blood Urine 2+ (Negative); Color Urine Yellow (Yellow); Glucose Urine UA Negative (Negative); Ketones Urine Trace mg/dL (Negative); Leukocyte Esterase Ur Negative LEU/UL (Negative); Nitrate Urine Negative (Negative); Protein Urine Negative (Negative); Specific Grav Ur 1.022 (1.001-1.035); pH Urine 5.5 (5.0-9.0)
[2024-08-10] MEDS: LACTATED RINGERS 1,000 ML 999 ML IV CONT (00:56)
[2024-08-10 02:04] VITALS: BP 110/67; PULSE 78; RESP 15; O2SAT 99
[2024-08-10] MEDS: MORPHINE SULFATE (*CRX) 4 MG/ML INJ IV PUSH ×4 (02:05→16:34)
[2024-08-10] MEDS: ONDANSETRON INJ 4 MG/2 ML VIAL IV PUSH ×2 (02:50)
[2024-08-10 03:05] LABS: Creatine Kinase 955 U/L (55-170)
[2024-08-10] MEDS: HYDROcodone/acetaminophen (*CRX) 5-325 MG TABLET 1 TAB PO ×3 (04:30→21:25)
[2024-08-10] MEDS: TAMSULOSIN HCL 0.4 MG CAPSULE PO (04:31)
[2024-08-10 04:37] VITALS: BMI 23.1
--- NOTE | 2024-08-10 04:39 | ADMGEN ---
This patient, Irwin Granados, was admitted to 3 Med Surg Room 323-02. Patient/family oriented to hospital policies and general routines including ID bracelet, bed and alarms, visiting hours, pain management, procedures, bathroom and other care routines, personal items, smoking policy, room service/diet, and visiting hours. Information on how to activate the Rapid Response Team has been discussed. Patient/Family are encouraged to report perceived risks to care and to ask questions if they do not understand what they are told or what they should do.
[2024-08-10 04:40] VITALS: BP 115/77; PULSE 66; RESP 18; TEMP 36.4; O2SAT 100
[2024-08-10] MEDS: LACTATED RINGERS 1,000 ML 150 ML IV CONT ×3 (05:10→21:25)
--- NOTE | 2024-08-10 08:04 | P.HP_ITS ---
H&P: HPI History of Present Illness Date/Time: 08/10/24 08:04 Chief Complaint: abd pain Narrative: 33-year-old male with h/o immune thrombocytopenia status post splenectomy, kidney stones admitted form ED with lower abdominal pain that started as flank and back pain. He has a history of kidney stones in this feels very similar, reports blood in urine. Pain radiates towards his groin, no testicular pain or swelling. No trauma or injury. No nausea or vomiting. No diarrhea constipation, no fever, no chills. IN ED: CT scan: obstructing 5 x 3 x 3 mm stone within the left UVJ consistent with patient's historical features and pain location. Dilated left kidney with mild hydro. Nonobstructing calculi in the kidneys bilaterally, no evidence of acute bowel obstruction or other acute process in the abdomen or pelvis. WNC normal, no anemia, normal platelet count. Urinalysis showed blood but no signs of infection. CPK is elevated at 1203 indicative of rhabdomyolysis likely from dehydration and working in the heat outside consistent with his historical features as well. This was down trending and improved after fluid boluses. Urologist was contacted in ED, DR Curry. NPO at midnight. Pain is well controlled. Of note- pt smokes marijuana daily- last time he smoked was yesterday- 08/09 Review of Systems Review of Systems: All systems reviewed & are unremarkable except as noted in HPI and below PMFSH Past Medical History Medical History Psoriatic arthritis Tiffany's disease Anxiety History of ITP Surgical History Surgical History H/O splenectomy History of appendectomy Family History Family History (Updated 08/10/24 @ 05:25 by Jackie Stewart RN) Other No significant family history Social History Social History Smoking status: Current every day smoker Tobacco type: cigarettes Smokeless tobacco user: other Second hand tobacco smoke exposure: No Smoking end date: 12/21/22 Alcohol intake: never Substance use: current Substance use type: marijuana Other substance usage details: cocaine over the weekend Last use: 10/31/23 Do You Feel Safe in your Home?: Yes Lack of Transportation: No Lack of Food: Never True Current Housing: I Have Housing Concerned About Future Housing: No Difficulty Paying Gas/Electric Bills: YES Difficulty Paying for Meds: YES Currently Unemployed: YES Education: Bachelor's Degree Difficulty w/ Childcare or Family Care: No Spiritual care concerns: No Meds Home Medications and Allergies Home Medications ?Medication ?Instructions ?Recorded ?Confirmed ?Type Adderall extended release 30 mg PO DAILY 01/01/24 08/10/24 History tramadol 25 mg tablet 25 mg PO Q6H PRN pain 08/10/24 08/10/24 History Allergies Allergy/AdvReac Type Severity Reaction Status Date / Time red dye Allergy Intermediate Swelling Verified 08/09/24 23:33 of Lip/Tongue/Throat amoxicillin Allergy Mild Unknown Verified 08/09/24 23:33 Penicillins Allergy Mild Unknown Verified 08/09/24 23:33 Olives with Feta Allergy Swelling Uncoded 08/09/24 23:33 cheese-[employer] of the Eye Vital Signs Vital Signs - 24 hr 08/09/24 23:39 08/10/24 02:04 08/10/24 04:40 Temperature 98.3 F 97.5 F L Pulse Rate 86 78 66 Respiratory Rate 15 15 18 Blood Pressure 135/74 110/67 115/77 Pulse Oximetry 99 99 100 Oxygen Delivery Room Air 08/10/24 04:58 Temperature Pulse Rate Respiratory Rate Blood Pressure Pulse Oximetry Oxygen Delivery Room Air Exam Narrative: sitting up in the chair, family at the bedside Const: General: comfortable Resp: Effort & Inspection: normal respiratory effort Cardio: Rate: regular rate Rhythm: regular rhythm GI: GI Palp: Yes Soft to palpation Auscultation: normal bowel sounds Psych: Affect: normal affect H&P: Results Labs Labs: Short CBC 08/09/24 Range/Units 23:49 WBC 7.4 (4.5-10.0) K/mm3 Hgb 12.1 L (14.0-18.0) g/dL Hct 36.0 L (42.0-52.0) % Plt Count 335 (150-375) k/mm3 BMP 08/09/24 23:49 Sodium 135 L Potassium 3.6 Chloride 106 Carbon Dioxide 20 L BUN 17 Creatinine 0.98 Glucose 111 H Calcium 9.2 Cardiac Enzymes 08/09/24 08/10/24 Range/Units 23:49 02:29 Total Creatine Kinase 1203 H 955 H (55-170) U/L Liver Function 08/09/24 Range/Units 23:49 Total Bilirubin 0.4 (0.2-1.3) mg/dL AST 50 (17-59) U/L ALT 29 (6-50) U/L Alkaline Phosphatase 45 (38-126) U/L Albumin 4.6 (3.5-5.1) g/dL Urine 08/09/24 Range/Units 23:49 Urine Color Yellow (Yellow) Urine Appearance Clear (Clear) Urine pH 5.5 (5.0-9.0) Ur Specific [place] 1.022 (1.001-1.035) Urine Protein Negative (Negative) mg/dL Urine Glucose (UA) Negative (Negative) mg/dL Assessment and Plan Assessment and plan (1) Rhabdomyolysis: Code(s): M62.82 - Rhabdomyolysis Status: Acute (2) Kidney stone: Code(s): N20.0 - Calculus of kidney Status: Acute (3) Marijuana smoker: Code(s): F12.90 - Cannabis use, unspecified, uncomplicated Status: Acute Plan 33-year-old male with a history of immune thrombocytopenia status post splenectomy as well as history of kidney stones presenting with bilateral flank pain radiating towards his abdomen/suprapubic region associated with some discolored urine concern for hematuria. Of note- pt smokes marijuana daily- last time he smoked was yesterday- 08/09 CT: 5 mm left UVJ stone, without hydronephrosis. Additional small bilateral nonobstructing renal stones, as detailed above. Status post splenectomy and probable appendectomy. Labs: no leukocytosis. Normal platelet count. Urinalysis was blood but no signs of infection. CPK is elevated at 1203 indicative of rhabdomyolysis likely from dehydration and working in the heat outside. This was down trending on repeat assessment after fluid boluses. - ok to eat/drink today - NPO at midnight. 0 holding home adderall as pt takes it prn for the most part at home - continue zofran prn - pain mngmnt - urology consult Pt is full code Quality VTE Prophylaxis VTE prophylaxis: mechanical ordered Hospitalist MIPS Advance Care Plan I have confirmed that the patient's Advanced Care Plan is present, code status is documented, or surrogate decision maker is listed in patient medical record.: Yes Medication Reconciliation I have utilized all available resources to obtain, update and review the patients current medications (includes all prescriptions, OTC, herbals, cannabis, and nutritional supplements).: Yes
[2024-08-10] MEDS: LORATADINE 10 MG TABLET PO (11:30)
[2024-08-10 14:00] VITALS: BP 102/53; PULSE 67; RESP 18; TEMP 35.8; O2SAT 99
--- NOTE | 2024-08-10 14:25 | P.CONUR_ITS ---
Assessment and Plan Assessment and plan (1) Left ureteral stone: Code(s): N20.1 - Calculus of ureter Status: Acute Assessment and Plan: 5 mm left distal ureteral stone Plan -- patient currently with minimal pain. Plan medical expulsive therapy with IV fluids and tamsulosin. The patient unable to pass the stone in next 24 hours, consider intervention with left ureteroscopy / laser lithotripsy/stone extraction / stent insertion. Risks /benefits / alternatives discussed. Patient understands agrees to proceed with plan Urology Consult Note HPI Date Seen: 08/10/24 Requesting Physician: Kolton Joaquin MD Primary Care Provider: Ezequiel Castañeda MD Consult Narrative Narrative: Irwin Granados is a 33 year old male Presented to the ER last night with flank pain. He was found to have obstructing distal ureteral stone. The patient states he is multiple stones in the past that he is passed on his own. No previous surgical intervention for nephrolithiasis PMFSH Past Medical History Medical History (Updated 08/10/24 @ 14:26 by Isabella Curry MD) Left ureteral stone Psoriatic arthritis Tiffany's disease Anxiety History of ITP Surgical History Surgical History H/O splenectomy History of appendectomy Family History Family History (Updated 08/10/24 @ 05:25 by Jackie Stewart RN) Other No significant family history Social History Social History Smoking status: Current every day smoker Tobacco type: cigarettes Smokeless tobacco user: other Second hand tobacco smoke exposure: No Smoking end date: 12/21/22 Alcohol intake: never Substance use: current Substance use type: marijuana Other substance usage details: cocaine over the weekend Last use: 10/31/23 Do You Feel Safe in your Home?: Yes Lack of Transportation: No Lack of Food: Never True Current Housing: I Have Housing Concerned About Future Housing: No Difficulty Paying Gas/Electric Bills: YES Difficulty Paying for Meds: YES Currently Unemployed: YES Education: Bachelor's Degree Difficulty w/ Childcare or Family Care: No Spiritual care concerns: No Meds Home Medications and Allergies Home Medications ?Medication ?Instructions ?Recorded ?Confirmed ?Type Adderall extended release 30 mg PO DAILY 01/01/24 08/10/24 History tramadol 25 mg tablet 25 mg PO Q6H PRN pain 08/10/24 08/10/24 History Allergies Allergy/AdvReac Type Severity Reaction Status Date / Time red dye Allergy Intermediate Swelling Verified 08/09/24 23:33 of Lip/Tongue/Throat amoxicillin Allergy Mild Unknown Verified 08/09/24 23:33 Penicillins Allergy Mild Unknown Verified 08/09/24 23:33 Olives with Feta Allergy Swelling Uncoded 08/09/24 23:33 cheese-[employer] of the Eye Vital Signs Vital Signs - 24 hr 08/09/24 23:39 08/10/24 02:04 08/10/24 04:40 Temperature 36.8 C 36.4 C L Pulse Rate 86 78 66 Respiratory Rate 15 15 18 Blood Pressure 135/74 110/67 115/77 Pulse Oximetry 99 99 100 Oxygen Delivery Room Air 08/10/24 04:58 08/10/24 08:00 Temperature Pulse Rate Respiratory Rate Blood Pressure Pulse Oximetry Oxygen Delivery Room Air Room Air Exam 2 Narrative: patient is awake and alert. He has in no acute distress. His breathing is unlabored. Abdomen is soft nontender nondistended , no CVA tenderness. Results Labs 08/09/24 23:49 08/09/24 23:49 Labs: Short CBC 08/09/24 Range/Units 23:49 WBC 7.4 (4.5-10.0) K/mm3 Hgb 12.1 L (14.0-18.0) g/dL Hct 36.0 L (42.0-52.0) % Plt Count 335 (150-375) k/mm3 BMP 08/09/24 23:49 Sodium 135 L Potassium 3.6 Chloride 106 Carbon Dioxide 20 L BUN 17 Creatinine 0.98 Glucose 111 H Calcium 9.2 Cardiac Enzymes 08/09/24 08/10/24 Range/Units 23:49 02:29 Total Creatine Kinase 1203 H 955 H (55-170) U/L Liver Function 08/09/24 Range/Units 23:49 Total Bilirubin 0.4 (0.2-1.3) mg/dL AST 50 (17-59) U/L ALT 29 (6-50) U/L Alkaline Phosphatase 45 (38-126) U/L Albumin 4.6 (3.5-5.1) g/dL Urine 08/09/24 Range/Units 23:49 Urine Color Yellow (Yellow) Urine Appearance Clear (Clear) Urine pH 5.5 (5.0-9.0) Ur Specific [place] 1.022 (1.001-1.035) Urine Protein Negative (Negative) mg/dL Urine Glucose (UA) Negative (Negative) mg/dL Imaging Radiologist's impression: cc: Kolton Joaquin MD; Ezequiel Castañeda MD; Ion Vann MD~ Non-contrast CT scan of the Abdomen and Pelvis Clinical indication: Abdominal pain Technique: 2.5 mm axial scans were obtained through the abdomen and pelvis without intravenous or oral contrast. Dose reduction technique was used on this scan by utilizing automated exposure control and iterative reconstruction technique. The dose-length product (DLP) was 290.65 mGy-cm. Findings: Images through the lung bases reveal no abnormalities. Nonobstructing left renal stone measures 4 mm. Nonobstructing right renal stone measures 3 mm. There is a 5 mm stone at the left UVJ, without vee hydronephrosis. No right ureteral stone evident. The liver, pancreas, gallbladder, and adrenals appear normal. Status post splenectomy. There is no aortic aneurysm. There is no evidence of bowel obstruction. Probable prior appendectomy. Images through the pelvis were performed. There is no evidence of ascites or lymphadenopathy. Urinary bladder otherwise unremarkable. No pelvic mass seen. Impression: 5 mm left UVJ stone, without hydronephrosis. Additional small bilateral nonobstructing renal stones, as detailed above. Status post splenectomy and probable appendectomy. Reviewed, dictated and finalized at location M.
[2024-08-10 23:19] VITALS: O2SAT 99
[2024-08-11] MEDS: LACTATED RINGERS 1,000 ML 150 ML IV CONT (06:01)
--- NOTE | 2024-08-11 06:29 | WPDHPUPDATE1 ---
History and Physical Update Update Date/Time: 08/11/24 06:29 History and Physical has been reviewed, including an updated exam of the patient. There are NO changes in the patient's condition. Risks, benefits, and alternatives have been discussed and questions answered. Patient agrees to proceed with procedure.
--- NOTE | 2024-08-11 07:33 | P.PNIM_ITS ---
Progress Note: A&P Assessment and Plan (1) Rhabdomyolysis: Code(s): M62.82 - Rhabdomyolysis Status: Acute Assessment and Plan: * Likely secondary to dehydration/working in heat * Upon admission, CK = 1203 * Received 2 fluid boluses in ER * Continue LR @ 150ml/hr * Repeat CK daily (2) Kidney stone: Code(s): N20.0 - Calculus of kidney Status: Acute Assessment and Plan: * Abd/Pelvis CT: 5 mm left UVJ stone, without hydronephrosis. Additional small bilateral nonobstructing renal stones * Urology consulted * Plan for medical expulsion therapy at this time * IV Fluids, tamsulosin * If unable to pass stone in next 24 hrs (end of today) will consider surgical intervention * NPO at midnight (3) Marijuana smoker: Code(s): F12.90 - Cannabis use, unspecified, uncomplicated Status: Acute Assessment and Plan: * Last time he smoked was 08/09 Plan 33-year-old male with a history of immune thrombocytopenia status post splenectomy as well as history of kidney stones presenting with bilateral flank pain radiating towards his abdomen/suprapubic region associated with some discolored urine concern for hematuria. Of note- pt smokes marijuana daily- last time he smoked was yesterday- 08/09 CT: 5 mm left UVJ stone, without hydronephrosis. Additional small bilateral nonobstructing renal stones, as detailed above. Status post splenectomy and probable appendectomy. Labs: no leukocytosis. Normal platelet count. Urinalysis was blood but no signs of infection. CPK is elevated at 1203 indicative of rhabdomyolysis likely from dehydration and working in the heat outside. This was down trending on repeat assessment after fluid boluses. - ok to eat/drink today - NPO at midnight. 0 holding home adderall as pt takes it prn for the most part at home - continue zofran prn - pain mngmnt - urology consult Pt is full code Subjective Date/time seen: 08/11/24 07:33 Interval history: 33-year-old male with a history of immune thrombocytopenia status post splenectomy as well as history of kidney stones presenting with bilateral flank pain radiating towards his abdomen/suprapubic region associated with some discolored urine concern for hematuria. 08/11/2024 Review of Systems Review of Systems: All systems reviewed & are unremarkable except as noted in HPI and below Exam Narrative: sitting up in the chair, family at the bedside Const: General: comfortable Resp: Effort & Inspection: normal respiratory effort Cardio: Rate: regular rate Rhythm: regular rhythm GI: Auscultation: normal bowel sounds Psych: Affect: normal affect Objective Data Vital Signs Vital Signs: Vital Signs - 24 hr 08/10/24 08:00 08/10/24 14:00 08/10/24 20:00 Temperature 96.4 F L Pulse Rate 67 Respiratory Rate 18 Blood Pressure 102/53 L Pulse Oximetry 99 Oxygen Delivery Room Air Room Air 08/10/24 23:19 Temperature Pulse Rate Respiratory Rate Blood Pressure Pulse Oximetry 99 Oxygen Delivery Room Air Intake/Output Intake/Output: Intake & Output 08/08/24 08/09/24 08/10/24 08/11/24 23:59 23:59 23:59 23:59 Intake Total 4440 1000 Balance 4440 1000 Meds/Results Medications: Active Medications Generic Name Dose Route Start Last Admin Trade Name Freq PRN Reason Stop Dose Admin Acetaminophen 650 mg 08/10/24 03:51 Acetaminophen 325 Mg Tablet PO Q4H PRN Mild Pain (1-3) or Fever Hydrocodone Bitart/Acetaminophen 1 tab 08/10/24 03:51 08/10/24 21:25 Hydrocodone/Acetaminophen (*Crx) 5-325 Mg Tablet PO 1 tab Q4H PRN Administration Pain Rated 4-6 Lactated Ringer's 1,000 mls @ 150 mls/hr 08/10/24 03:55 08/11/24 06:01 Lr - Lactated Ringers Iv IV CONT 150 mls/hr .[id number] ROB Administration Loratadine 10 mg 08/10/24 11:20 08/10/24 11:30 Loratadine 10 Mg Tablet PO 10 mg QAM ROB Administration Morphine Sulfate 4 mg 08/10/24 03:51 08/10/24 16:34 Morphine Sulfate (*Crx) 4 Mg/Ml Inj IV PUSH 4 mg Q2H PRN Administration Pain Rated 7-10 Ondansetron HCl 4 mg 08/10/24 03:51 Ondansetron Inj 4 Mg/2 Ml Vial IV PUSH Q4H PRN Nausea Radiology Results: ITS Impressions Abdomen/Pelvis CT 08/10/24 05:26 Impression: 5 mm left UVJ stone, without hydronephrosis. Additional small bilateral nonobstructing renal stones, as detailed above. Status post splenectomy and probable appendectomy. Quality VTE Prophylaxis VTE prophylaxis: mechanical ordered
[2024-08-11 08:52] VITALS: BP 110/63; PULSE 54; RESP 18; O2SAT 100
[2024-08-11 08:59] LABS: Creatine Kinase 447 U/L (55-170)
[2024-08-11 10:00] VITALS: BP 106/62; PULSE 55; RESP 16; TEMP 36.5; O2SAT 100
--- NOTE | 2024-08-11 10:27 | SUR.PREOP ---
Patient passed kidney stone in preop area. Specimen shown to Dr. Farris. Per Dr Farris procedure cancelled and can be sent back to IP room. Specimen sent to pathology. Report given to floor RN.
--- NOTE | 2024-08-11 10:31 | SUR.PREOP ---
Patient taken back to 3 med/surg room 326 at this time via wheelchair.
--- NOTE | 2024-08-11 10:32 | S_PTH ---
PATIENT: Irwin Granados LOC: [id number] U#:[id number] AGE/SX: 33/M ROOM: 326 RE08/10/[address]: Darius Carreon PA-C : 1990 BED: 01 DIS: 08/11/2024 SPEC #: [id number] RECD: 08/11/24 13:06 STATUS: ALENA REMitchell #: [id number] ETHEL: 08/11/24 10:[address]: Catalino Farris DEPT: [facility] Surgical RECD BY: Cathleen Clifton ENTERED: 08/11/24 13:06 SP TYPE: Surgical OTHR DR: SUDHA Ashby MD Prashanth Jayaraj, MD Raj M. Sajid, MD Tissues: A - Stone Procedures: Gross Exam Level 1 Crystalline Analysis
[2024-08-11] MEDS: HYDROcodone/acetaminophen (*CRX) 5-325 MG TABLET 1 TAB PO (11:26)
--- NOTE | 2024-08-11 12:20 | P.DS_ITS ---
DS: Admitting Diagnosis Discharge Date 08/11/2024 Admitting Diagnosis Renal stone, Rhabdomyolsis DS: Discharge Diagnosis Discharge Diagnosis (1) Rhabdomyolysis: Code(s): M62.82 - Rhabdomyolysis Status: Acute Assessment and Plan: * Likely secondary to dehydration/working in heat * Upon admission, CK = 1203 * Received 2 fluid boluses in ER * Continue LR @ 150ml/hr * Repeat CK daily (2) Kidney stone: Code(s): N20.0 - Calculus of kidney Status: Acute Assessment and Plan: * Abd/Pelvis CT: 5 mm left UVJ stone, without hydronephrosis. Additional small bilateral nonobstructing renal stones * Urology consulted * Plan for medical expulsion therapy at this time * IV Fluids, tamsulosin * If unable to pass stone in next 24 hrs (end of today) will consider surgical intervention * NPO at midnight (3) Marijuana smoker: Code(s): F12.90 - Cannabis use, unspecified, uncomplicated Status: Acute Assessment and Plan: * Last time he smoked was 08/09 Plan 33-year-old male with a history of immune thrombocytopenia status post splenectomy as well as history of kidney stones presenting with bilateral flank pain radiating towards his abdomen/suprapubic region associated with some discolored urine concern for hematuria. Of note- pt smokes marijuana daily- last time he smoked was yesterday- 08/09 CT: 5 mm left UVJ stone, without hydronephrosis. Additional small bilateral nonobstructing renal stones, as detailed above. Status post splenectomy and probable appendectomy. Labs: no leukocytosis. Normal platelet count. Urinalysis was blood but no signs of infection. CPK is elevated at 1203 indicative of rhabdomyolysis likely from dehydration and working in the heat outside. This was down trending on repeat assessment after fluid boluses. - ok to eat/drink today - NPO at midnight. 0 holding home adderall as pt takes it prn for the most part at home - continue zofran prn - pain mngmnt - urology consult Pt is full code DS: Summary Hospital Course Reason for hospitalization: Flank pain, renal stone Hospital Course: 33-year-old male with h/o immune thrombocytopenia status post splenectomy, kidney stones admitted form ED with lower abdominal pain that started as flank and back pain. He has a history of kidney stones in this feels very similar, reports blood in urine. Pain radiates towards his groin, no testicular pain or swelling. No trauma or injury. No nausea or vomiting. No diarrhea constipation, no fever, no chills. IN ED: CT scan: obstructing 5 x 3 x 3 mm stone within the left UVJ consistent with patient's historical features and pain location. Dilated left kidney with mild hydro. Nonobstructing calculi in the kidneys bilaterally, no evidence of acute bowel obstruction or other acute process in the abdomen or pelvis. WNC normal, no anemia, normal platelet count. Urinalysis showed blood but no signs of infection. CPK is elevated at 1203 indicative of rhabdomyolysis likely from dehydration and working in the heat outside consistent with his historical features as well. This was down trending and improved after fluid boluses. Urologist was contacted in ED, DR Curry Per Dr Curry, patient was made NPO but elected for expulsive therapy with IV fluids and tamsulosin. Patient was able to pass the ureteral stone on 08/11 with minimal pain. Patient is otherwise hemodynamically stable and cleared for discharge from Urology standpoint. Creatine kinase decreased from 1203 to 447. Patient otherwise can intake oral rehydration in the outpatient setting longer requires hospitalization at this time. Given the patient cleared for discharge from Urology standpoint, plan discharging patient home with follow-up in the outpatient setting with Urology and his PCP. Patient educated the importance of maintaining adequate oral hydration and not overdoing exercise/strenuous activity. Patient amenable to this plan. Status at Discharge Functional status at discharge: independent ambulation Overall status at discharge: patient is back to baseline Time Spent with Patient Time attestation: Total time spent providing and/or coordinating discharge services: 36 Exam Narrative: Gen - well appearing male in no acute respiratory distress who is nontoxic- appearing lying semi recumbent in bed HEENT - normocephalic. Atraumatic. Pupils equal round and reactive. Extraocular motions intact. Sclera clear and anicteric. Nares patent. Moist mucous membranes. Tongue was midline. Neck - neck was supple. No dominant adenopathy, thyromegaly or masses. 2+ carotid upstrokes without bruits. Chest - lungs are clear to auscultation bilaterally. No wheezes or crackles. CV - heart was regular rate and rhythm. S1-S2. No murmurs gallops or rubs. Abd - abdomen was soft. Nontender. Nondistended. Positive bowel sounds. No organomegaly or masses. Ext - no clubbing, cyanosis or edema. 2+ DP pulses bilaterally. Neuro - patient is alert and oriented x4. Strength is 5/5 in both upper and lower extremities. Cranial nerves 2-12 are intact. Speech is clear. Psych - normal mood and affect. Patient is pleasant and cooperative. Skin - warm and dry. No rashes noted. DS: Data Data Completed and Pending Pending studies at discharge: Pending at discharge 08/11/24 10:32 Surgical [PTH] Routine Labs on day of discharge: Labs from last 24 hours 08/11/24 08:00 Total Creatine Kinase 447 H Discharge Plan Discharge Attending physician on discharge: Reinaldo Candelario Consulting providers: Isabella Curry; Darius Carreon Discharging Clinician: Darius Carreon Anticipated Discharge Date/Time: 08/11/24 12:18 Patient Disposition: Home Activity: as tolerated Diet: as tolerated Discharge Instructions: Discharge disposition: Stable Take medications as prescribed Monitor blood pressures Take caution while standing, rising, or moving Change positions slowly taking a break between each position change If you standing feel dizzy sit back down and take a break Encouraged to continue with yearly vaccinations Return to the emergency department if he developed sudden shortness of breath, chest pain, nausea, vomiting, upset stomach or intractable diarrhea Return to the emergency department if you develop fever greater than 101.5 Follow-up with the primary care physician within 1-2 weeks Thank you for [facility] for your healthcare needs Patient Instructions: Antibiotic Form Patient Language: Persian Stand Alone Forms: General Discharge Information Follow-up/Referrals: Ezequiel Castañeda MD [Primary Care Provider] - Discharge Medications: Continued Adderall extended release 30 mg tablet 30 mg PO DAILY Patient Comments: extended release tramadol 25 mg tablet 25 mg PO Q6H PRN (Reason: pain) Date of admission: 08/10/24 03:51 Primary Care Provider: Ezequiel Castañeda Admitting Provider: Kolton Joaquin Attending physician on admission: Kolton Joaquin Condition: Stable Quality VTE Prophylaxis VTE prophylaxis: mechanical ordered
--- NOTE | 2024-08-11 14:26 | P.PNUR_ITS ---
Progress Note: A&P Assessment and Plan (1) Calculus of ureterovesical junction (UVJ): Code(s): N20.1 - Calculus of ureter Status: Acute Assessment and Plan: * Spontaneously passed stone just prior to our planned endoscopic extraction * Discharge and follow-up with us in 3-4 weeks Subjective Subjective Date/Time Seen: 08/11/24 14:26 Interval history: Patient spontaneously passed stone just prior to procedure Review of Systems Review of Systems: All systems reviewed & are unremarkable except as noted in HPI and below Exam Const: General: no acute distress Resp: Effort & Inspection: normal respiratory effort GI: Inspection: non-distended GI Palp: No abdominal tenderness and No Guarding due to palpation present (GI) Auscultation: normal bowel sounds Objective Data Vital Signs Vital Signs: Vital Signs - 24 hr 08/10/24 20:00 08/10/24 23:19 08/11/24 08:00 Temperature Pulse Rate Respiratory Rate Blood Pressure Pulse Oximetry 99 Oxygen Delivery Room Air Room Air Room Air 08/11/24 08:52 08/11/24 10:00 Temperature 97.7 F Pulse Rate 54 L 55 L Respiratory Rate 18 16 Blood Pressure 110/63 106/62 Pulse Oximetry 100 100 Oxygen Delivery Room Air Intake/Output Intake/Output: Intake & Output 08/08/24 08/09/24 08/10/24 08/11/24 23:59 23:59 23:59 23:59 Intake Total 4440 1000 Balance 4440 1000 Meds/Results Radiology Results: ITS Impressions Abdomen/Pelvis CT 08/10/24 05:26 Impression: 5 mm left UVJ stone, without hydronephrosis. Additional small bilateral nonobstructing renal stones, as detailed above. Status post splenectomy and probable appendectomy. Labs Labs: Laboratory Results - last 24 hr 08/11/24 08:00 Total Creatine Kinase 447 H
== END 2024-08-11 13:00 | disposition home or self-care (01) ==
LOC: ANHED 08-10 03:57 → ANH3MEDSUR 08-10 04:15
PROVIDERS: Urology; Admitting Provider General Practice; Emergency Provider Student in an Organized Health Care Education/Training Program; PCP Emergency Medicine; Visit Provider Physician Assistant
PROC: (CPT 52352; principal; 2024-08-11 11:30)
DX: N20.1 Calculus of ureter (principal); M62.82 Rhabdomyolysis; D69.3 Immune thrombocytopenic purpura; L40.50 Arthropathic psoriasis, unspecified; E06.3 Autoimmune thyroiditis; F41.9 Anxiety disorder, unspecified; F12.90 Cannabis use, unspecified, uncomplicated; F17.210 Nicotine dependence, cigarettes, uncomplicated; Z79.899 Other long term (current) drug therapy; Z87.442 Personal history of urinary calculi; Z90.81 Acquired absence of spleen
CPT/HCPCS: 36415; 74176; 80053; 81001; 82365; 82550; 83690; 85025; 88300; 96361; 96374; 96375; 96376; 99285; A9270; G0378; G0379; J2270; J2405; J7120

== ENCOUNTER 2024-08-18 12:27 | Emergency (ER) | payer MEDICAID, SELFPAY ==
--- NOTE | ~2024-08-18 | XR_ITS ---
XR finger 5th LT min 2V Ordering provider: Zoila Guillermo APRN History: . pain, injury . Comparison: None. FINDINGS: BONES: Posterior fracture at the base of the distal phalanx with anterior displacement JOINT SPACES: Narrowing of the distal interphalangeal joint. SOFT TISSUES: Normal. IMPRESSION: Fracture at the base of the distal phalanx of the left little finger. Reviewed, dictated and finalized at location A.
--- NOTE | ~2024-08-18 | XR_ITS ---
XR finger 5th LT min 2V Ordering provider: Zoila Guillermo APRN History: . post reduction . Comparison: August 18, 2024 FINDINGS: BONES: Fracture at the base of the distal phalanx with improved alignment of the distal interphalange al joint of the left little finger. Status post reduction. JOINT SPACES: Narrowing of the distal interphalangeal joint. SOFT TISSUES: Normal. IMPRESSION: Fracture in the distal phalanx of the left little finger. Improved alignment compared to previous st udy. Status post reduction. Reviewed, dictated and finalized at location A. IMPRESSION: Fracture in the distal phalanx of the left little finger. Improved alignment c ompared to previous study. Status post reduction.
--- NOTE | 2024-08-18 12:43 | ED.UPPEXIN ---
HPI - Extremity Injury (Upper) General Chief Complaint: Extremity Injury, Upper Stated Complaint: Left Hand Finger Pain Time Seen by Provider: 08/18/24 12:43 Source: patient Mode of arrival: ambulatory Limitations: no limitations History of Present Illness HPI narrative: 33 y/o male presented for c/o pain and swelling to the end of the left little finger following an injury today. Says his finger was caught in his dog's collar, when he pulled the dog away from tomato plant. Endorses decreased ROM to the end of the finger. Related Data Home Medications ?Medication ?Instructions ?Recorded ?Confirmed ?Last Taken ?Type Adderall extended release 30 mg PO DAILY 01/01/24 08/10/24 08/09/24 History tramadol 25 mg tablet 25 mg PO Q6H PRN pain 08/10/24 08/10/24 08/09/24 History Allergies Allergy/AdvReac Type Severity Reaction Status Date / Time red dye Allergy Intermediate Swelling Verified 08/18/24 12:30 of Lip/Tongue/Throat amoxicillin Allergy Mild Unknown Verified 08/18/24 12:30 Penicillins Allergy Mild Unknown Verified 08/18/24 12:30 Olives with Feta Allergy Swelling Uncoded 08/18/24 12:30 cheese-[employer] of the Eye Review of Systems Review of Systems: CONSTITUTIONAL: Denies body aches, fever, chills EYES: Denies visual changes ENT: Denies rhinorrhea, congestion CARDIOVASCULAR: Denies chest pain, palpitations, or edema. RESPIRATORY: Denies cough or dyspnea. SKIN: Denies rash, itching, or wounds. MUSCULOSKELETAL: reports left little finger pain NEUROLOGIC: Denies headache, numbness, tingling, or weakness. All systems reviewed & are unremarkable except as noted in HPI and below PMFSH Past Medical History Medical History (Updated 08/18/24 @ 14:17 by Zoila Guillermo APRN) Left ureteral stone Psoriatic arthritis Tiffany's disease Anxiety History of ITP Surgical History Surgical History H/O splenectomy History of appendectomy Family History Family History (Updated 08/10/24 @ 05:25 by Jackie Stewart RN) Other No significant family history Social History Social History Smoking status: Current every day smoker Tobacco type: cigarettes Smokeless tobacco user: other Second hand tobacco smoke exposure: No Smoking end date: 12/21/22 Alcohol intake: never Substance use: current Substance use type: marijuana Other substance usage details: cocaine over the weekend Last use: 10/31/23 Do You Feel Safe in your Home?: Yes Lack of Transportation: No Lack of Food: Never True Current Housing: I Have Housing Concerned About Future Housing: No Difficulty Paying Gas/Electric Bills: YES Difficulty Paying for Meds: YES Currently Unemployed: YES Education: Bachelor's Degree Difficulty w/ Childcare or Family Care: No Spiritual care concerns: No Comments At time of signature, I have reviewed and agree with nursing past medical, surgical, social and family history unless otherwise noted. Please see nursing chart for further information. There is no relevant family history pertinent to the presenting complaint Exam Narrative: GENERAL: Well-appearing CHEST: Speaks in full sentences. No respiratory distress. HEART: Regular rate and rhythm. Normal and equal peripheral pulses. EXTREMITIES: Left 5th digit distal phalanx swelling and tenderness with palpation over the DIP. Mild bruising. Cannot tolerate full straightening of the digit. No open wounds, pulse palpable and equal bilaterally, skin warm, dry, pink. Capillary refill less than 3 seconds. SKIN: Warm, dry, no rash. NEURO: Alert and oriented x3. PSYCH: Normal mood and affect Course Course Emergency Course: Patient is aware of diagnosis, understands and agrees to treatment plan. Anticipatory guidance given. Patient agrees to follow-up as directed and is aware of reasons to seek care at the emergency department. Portions of this record may have been created with voice recognition software Level of Care: Express Care Visit Vital Signs Vital signs: Reviewed Procedures Orthopedic Joint Reduction Left 5th digit: Orthopedic Joint Reduction Date: 08/18/24 Joint Reduction Location: finger (Left 5th DIP) Analgesia: nerve block (digital) Pre-Procedure Neuro Vascular Exam: normal Local Anesthesia: lidocaine 1% Amount of anesthesic used (mL): 4 Technique used: direct manipulation Post-reduction neuro exam: intact Post-reduction vascular: intact Post Reduction X-Ray Obtained: Yes Post Reduction X-Ray Results: reduced Splint Applied: Yes Patient Tolerated Procedure: well and no complications MDM - Extremity Injury (Upper) MDM Narrative Medical decision making narrative: X-ray reviewed with patient. Patient tolerated reduction, post reduction x-ray reviewed with patient. Metal finger splint applied Discussed physical exam findings. Advised supportive measures and signs/symptoms to go to the ER. Pt is appropriate for outpt treatment and f/u. Differential Diagnosis Differential diagnosis: Likely finger sprain, dislocation of finger and other (finger fracture) Imaging Data Radiologist's impression: Patient: Irwin Granados : 1990 MR#: [id number] Age: 33 Acct:[id number] [facility] Date: 08/18/24Attending Dr: XR finger 5th LT min 2V Ordering provider: Zoila Guillermo APRN History: . pain, injury . Comparison: None. FINDINGS: BONES: Posterior fracture at the base of the distal phalanx with anterior displacement JOINT SPACES: Narrowing of the distal interphalangeal joint. SOFT TISSUES: Normal. IMPRESSION: Fracture at the base of the distal phalanx of the left little finger. ----- Patient: Irwin Granados : 1990 MR#: [id number] Age: 33 Acct:[id number] Loc: [facility] ADM Date: 08/18/24Attending Dr: XR finger 5th LT min 2V Ordering provider: Zoila Guillermo APRN History: . post reduction . Comparison: August 18, 2024 FINDINGS: BONES: Fracture at the base of the distal phalanx with improved alignment of the distal interphalangeal joint of the left little finger. Status post reduction. JOINT SPACES: Narrowing of the distal interphalangeal joint. SOFT TISSUES: Normal. IMPRESSION: Fracture in the distal phalanx of the left little finger. Improved alignment compared to previous study. Status post reduction. Discharge Plan Discharge Clinical Impression: Finger fracture, left Patient Disposition: Home Condition: Stable Instructions: Finger Fracture (ED), Finger Dislocation (ED) Additional Instructions: Rest, Avoid lifting, pushing, pulling etc. ice and elevate the left hand. Motrin 800mg every 8 hours, as needed, for pain (take with food). Tylenol 1000mg every 8 hours. Keep splint clean, dry and in place. Go to the ER immediately for increased pain, tingling/numbness, swelling, redness, and fever Follow up with Hand specialist in 1-2 days for further evaluation - please call today for an appointment. Patient Language: Sami Prescriptions: No Action Adderall extended release 30 mg tablet 30 mg PO DAILY Patient Comments: extended release tramadol 25 mg tablet 25 mg PO Q6H PRN (Reason: pain) Follow-up/Referrals: April Tao MD [Physician] - (Fracture distal phalanx left 5th digit) Ezequiel Castañeda MD [Primary Care Provider] - Time of Disposition: 14:17
[2024-08-18] MEDS: LIDOCAINE 1% LOCAL INJ 2 ML AMPUL 8 ML INFILTRATE (13:13)
== END 2024-08-18 14:20 | disposition home or self-care (01) ==
PROVIDERS: Emergency Provider Nurse Practitioner Family; PCP Emergency Medicine
DX: S62.637A Displaced fracture of distal phalanx of left little finger, initial encounter for closed fracture (principal); X58.XXXA Exposure to other specified factors, initial encounter; L40.50 Arthropathic psoriasis, unspecified; Z87.891 Personal history of nicotine dependence; F12.90 Cannabis use, unspecified, uncomplicated
CPT/HCPCS: 26770; 73140; 99214; G0463; J2003

== ENCOUNTER 2024-09-12 13:32 | Outpatient (CLI) | payer MEDICAID, SELFPAY ==
--- NOTE | ~2024-09-12 | XR_ITS ---
EXAM/ PROCEDURE: XR finger 5th LT min 2V - 09/12/2024 13:45 CDT HISTORY: 34 years old Male with S62.637A - Displaced fracture of distal phalanx of left l... TECHNIQUE: Three view(s) FINDINGS/ IMPRESSION: Healing fracture of the base of the fifth distal phalanx. Stable alignment. Soft tissue appears unrem arkable. Joint space narrowing, subchondral sclerosis, subchondral cyst formation and osteophyte formation, co mpatible with mild osteoarthritis. Reviewed, dictated and finalized at location A.
--- OUTSIDE RECORDS SUMMARY | 2024-09-12 13:43 | XMS_ITS | Clinical Summary ---
Author Organization [facility] [employer] Address [address] [place] [address] Care Team Providers Care Banking Representative Name Role Phone Unavailable Primary Care Provider [...] Encounters Date Type Department Care Team Description 09/12/2024 Orders Only [facility] Oncology and Hematology - [address] [place], [place] [id number] Giovanny Banks MD Chronic anemia 09/05/2024 Orders Only [facility] Oncology and Hematology - Luis Jyoti [address] [place] [phone] Giovanny Banks MD Chronic anemia 08/29/2024 Orders Only [facility] Oncology and Hematology - Luis [address] [place] [address] Giovanny Banks MD Chronic anemia 08/22/2024 Orders Only [facility] Oncology and Hematology - [address] [place] [address] Giovanny Banks MD Chronic anemia 08/15/2024 Orders Only [facility] Oncology and Hematology - Luis [address] [place] [address] Giovanny Banks MD Chronic anemia 08/08/2024 Orders Only [facility] Oncology and Hematology - Luis [address] [place] [address] Giovanny Banks MD Chronic anemia 08/01/2024 Orders Only [facility] Oncology and Hematology - Luis [address] [place] [phone] Giovanny Banks MD Chronic anemia 07/25/2024 Orders Only [facility] Oncology and Hematology - Luis [address] [place] [address] Giovanny Banks MD Chronic anemia 07/18/2024 Orders Only [facility] Oncology and Hematology - [address] [place] [address] Giovanny Banks MD Chronic anemia 07/11/2024 Orders Only [facility] On[facility] and Hematology - [address] [place] [address] Giovanny Banks MD Chronic anemia 07/04/2024 Orders Only [facility] On[facility] and Hematology - [address] [place] [address] Giovanny Banks MD Chronic anemia 06/27/2024 Orders Only [facility] and Hematology - [address] [place] [address] Giovanny Banks MD Chronic anemia 06/20/2024 Orders Only [facility] Oncology and Hematology - [address] [place] [address] Giovanny Banks MD Chronic anemia 06/13/2024 Orders Only [facility] Oncology and Hematology - [address] [place] [phone] Giovanny Banks MD Chronic anemia from Last [...] Comments Blood Pressure 98/61 03/09/2024 10:09 AM DIGITAL PROOFING AND PLATEMAKER Pulse 82 03/09/2024 10:09 AM DIGITAL PROOFING AND PLATEMAKER Temperature 36.4 C (97.6 F) 03/09/2024 10:09 AM DIGITAL PROOFING AND PLATEMAKER Respiratory Rate 16 03/09/2024 10:09 AM DIGITAL PROOFING AND PLATEMAKER Oxygen Saturation 98% 03/09/2024 10:09 AM DIGITAL PROOFING AND PLATEMAKER Inhaled Oxygen Concentration - - Weight 76.2 kg (168 lb) 03/09/2024 10:09 AM DIGITAL PROOFING AND PLATEMAKER Height - - Body Mass Index - - Plan of Treatment Health Maintenance Due Date Last Done Comments DTAP/TDAP/TD VACCINES (1 - Tdap) 2008 HEPATITIS B VACCINES (1 of 3 - 19+ 3-dose series) 2008 INFLUENZA VACCINE (#1) 2024 HPV VACCINES Aged Out No longer eligi ble based on patient's age to complete this topic
--- OUTSIDE RECORDS SUMMARY | 2024-09-12 13:43 | XMS_ITS | Encounter Summary ---
Author Organization [facility] [employer] [facility] Address [address] [place] [address] Care Team Providers Care Ticker Installer Name Role Phone Unavailable Primary Care Provider Unavailabl e Encounter Details Date Type Department Care Team (Late st Contact Info) Description 09/12/2024 Orders Only [facility] Oncology and Hematology - [address] [facility] [address] [place] [address] Giovanny Banks MD [address] [facility] [address] [place] [address] Chronic anemia Social History Tobacco [...]
--- OUTSIDE RECORDS SUMMARY | 2024-09-12 13:43 | XMS_ITS | Clinical Summary ---
Author Organization [facility] Address [address] [place] [id number] Care Team Providers Care Dry Goods Clerk Name Role Phone Unavailable Primary Care Provider [...] of 3 - 19+ 3-dose series) 2008 HPV Vaccines (1 - 3-dose SCD M series) 2016 COVID-19 Vaccine (2023-2 5 season) 2023 Meningococcal B Vaccine Aged Out No l [...]
--- OUTSIDE RECORDS SUMMARY | 2024-09-12 13:43 | XMS_ITS | Clinical Summary ---
Author Organization [facility] Care Team Providers Care Supervisor Stave Cutting Name Role Phone Unavailable Primary Care Provider Unavailabl e Social History Tobacco Use Types Packs/Day Years Used Date Smoking Tobacco: Never Assessed Sex and Gender Information Value Date Recorded Sex Assigned at Not on file Legal Sex Male 7:01 PM [employer]DES[employer] Gender Identity Not on file Sexual Orientation [...]
--- OUTSIDE RECORDS SUMMARY | 2024-09-12 13:43 | XMS_ITS | Clinical Summary ---
Author Organization [facility] Address [address] [place] [address] Care Team Providers Care Invoice Coder Name Role Phone Unavailable Primary Care Provider [...]
--- OUTSIDE RECORDS SUMMARY | 2024-09-12 13:43 | XMS_ITS | Clinical Summary ---
Author Organization [facility] [employer] Address [address] [place] [address] Care Team Providers Care Oxygen System Tester Name Role Phone Ezequiel Castañeda MD Primary Care Provider Source Comments [facility] [employer],non-owned Affiliates and Associated Physician Practices is amultiple site organization consisting of ambulatory clinics and hospital sitesin [place], [place], [place] and [place]. This disclosure is being madepursuant to the Care Everywhere program and may not contain all information available regarding this patient. Last updated 17.[facility] [employer] Allergies Active Allergy Reactions Criticality Noted Date [...] HIB VACCINE (1 of 1 - Risk 1-dose series) 11/19/1990 MENINGOCOCCAL GROUPS A/C/Y/W VACCINE (1 - Risk 2-dose series) 08/20/1991 MENINGOCOCCAL (Group B) VACC INE SHARED DECISION-MAKING (1 of 4 - Increased Risk) 08/20/1999 HIV SCREENING 2004 HEPATITIS C SCREENING 08/15/2007 DTAP/TDAP/TD VACCINES (1 - Tdap) 2008 HEPATITIS B VACCINE (1 of 3 - 19+ 3-dose series) 08/19 PNEUMOCOCCAL VACCINE (1 of 2 - PCV) 2008 HPV VACCINE (1 - 3-dose SCDM series) 2016 COVID-19 VACCINE (1 - 2023- season) 2023 DEPRESSION SCREENING 02/24/2024 INFLUENZA VACCINE (#1) 2024 ZOSTER VACCINE (1 of 2) 08/20/2039 Care Teams Oxygen System Tester Relationship Specialty Start Date End Date Ezequiel Castañeda MD [address] [place] [id number] PCP - General Family Medicine 11/10/22
--- OUTSIDE RECORDS SUMMARY | 2024-09-12 13:43 | XMS_ITS | Encounter Summary ---
Author Organization [facility] Health Address [address] [place] [address] Care Team Providers Care Poem Writer Name Role Phone Unavailable Primary Care Provider [...] OR ESTABLISHED PATIENT Routine 03/16/2017 1:00 AM [facility] PANORAMIC RADIOGRAPHIC IMAGE Routine 03/16/2017 1:00 AM [facility] INTRAORAL - COMPREHENSIVE SERIES OF RADIOGRAPHIC IMAGES Routine 03/16/2017 1:00 AM [facility] INTRAORAL PHOTO Routine 03/16/2017 1:00 AM [facility] INTRAORAL PHOTO Routine 03/16/2017 1:00 AM [facility] INTRAORAL PHOTO Routine 03/16/2017 1:00 AM [facility] INTRAORAL PHOTO Routine 03/16/2017 1:00 AM [facility] Visit Diagnoses Not on file
== END 2024-09-12 13:33 | disposition home or self-care (01) ==
LOC: ANHIMG 13:39
PROVIDERS: PCP Emergency Medicine; Visit Provider Plastic Surgery
DX: S62.637A Displaced fracture of distal phalanx of left little finger, initial encounter for closed fracture (principal); X58.XXXA Exposure to other specified factors, initial encounter
CPT/HCPCS: 73140